=== PATIENT | male | born 1965 | race Caucasian/White ===

== ENCOUNTER 2016-11-02 12:41 | Inpatient (IN) ==
[2016-11-02] MEDS ORDERED: ASPIRIN 81 MG CHEWABLE TABLET PO ONE (12:50)
[2016-11-02] MEDS: NITROGLYCERIN 0.4 MG SUBLINGUAL TABLET SL PRN ×2 (12:53→13:05)
[2016-11-02] MEDS ORDERED: FUROSEMIDE 40 MG/4 ML INJECTION IVP ONE ×2 (12:56→16:39)
[2016-11-02] MEDS: SALINE FLUSH 10ml SYRINGE IVF PRN (13:06)
[2016-11-02] MEDS ORDERED: ALBUTEROL/IPRATROPIUM 2.5mg-0.5mg/3ml NEB AEROSOL ONE (13:11)
--- NOTE | 2016-11-02 13:11 | Emergency Department Report ---
Chest Pain HPI - General Chief Complaint: Chest Pain <Carlos Jones Q - 11/09/16 17:21> Stated Complaint: soa,chest pain <Carlos Jones Q - 11/09/16 17:21> Time Seen by Provider: 11/02/16 12:50 <Carlos Jones Q - 11/09/16 17:21> Source: patient <Cayla Ruffin - 11/02/16 13:11> Mode of arrival: ambulatory <Cayla Ruffin - 11/02/16 13:11> - History of Present Illness HPI narrative: Patient presents to the emergency room with complaints of chest pain and severe shortness of air. Patient reports was diagnosed with congestive heart failure 15 days ago while out of state but left AMA after staying approx 24 hours in order to get back to [place]. Patient states that he was diuresed while in the hospital however he left AMA and was not prescribed any diuretics. Patient states has been feeling like this since that time. Patient presents and is dyspneic speaking in 3 word sentences. Room air sats are 86-88%. Patient placed on 3 L of oxygen and saturations above 93%. Patient reports significant improvement after application of oxygen. Patient has scattered crackles and wheezes throughout all lung hoover. Patient states has no official diagnosis of COPD however is a heavy smoker and does have difficulty breathing prior to the diagnosis of congestive heart failure. Breathing treatment was ordered due to smoking hx and probable COPD component. Complains of chest pain to the left side of his chest that radiates to his shoulder, reports 8/10. Patient reports no regular medical care with the exception of his hospitalization 2 weeks ago[address] Denies street drug use. Reports is a daily smoker at 3 packs a day and drinks alcohol daily. When asked how much, he only states "a lot" and will not elaborate. Today he states he has had 4 beers. Patient is hypertensive upon arrival at 203/123 and HR is 115. Patient has pronounced edema throughout and 3+ pitting pedal edema. Patient is not from [place] however his sister lives here and he feels this is home base. <Cayla Ruffin - 11/02/16 14:20> MD complaint: chest pain, other (shortness of air) <Cayla Ruffin - 13:33> Occurred At: home <Cayla Ruffin 11/02/16 13:33> Onset (ago): day(s) <Cayla Ruffin 11/02/16 13:33> Duration: constant <Cayla Ruffin 11/02/16 13:33> Onset: during rest <Cayla Ruffin 11/02/16 13:33> Pain location: substernal, other (left shoulder) <Cayla Ruffin 11/02/16 13:33> Severity: severe <Cayla Ruffin 11/02/16 13:33> - Related Data Home Medications Medication Instructions Recorded Confirmed Acetaminophen [Acetaminophen Extra 1,000 mg PO Q6H PRN 11/02/16 11/02/16 Strength] <RobertCarlos Q - 11/09/16 17:21> Allergies Allergy/AdvReac Type Severity Reaction Status Date / Time No Known Allergies Allergy Verified 11/02/16 12:59 <Carlos Jones Q - 11/09/16 17:21> Review of Systems All systems: reviewed and negative except as stated <Cayla Ruffin 13:37> Constitutional: Reports: as per HPI, weakness. Denies: fever, chills <Dawood Ruffine Lety 11/02/16 13:37> Eyes: Denies: eye pain, eye discharge <LalyCayla Davidson 11/02/16 13:37> ENT: Denies: ear pain, throat pain <RuffinCayla Lety 11/02/16 13:37> Cardiovascular: Reports: as per HPI, chest pain, dyspnea on exertion, orthopnea , edema, paroxysmal nocturnal dyspnea <Cayla Ruffin 11/02/16 13:37> Respiratory: Reports: as per HPI, cough, dyspnea, wheezes. Denies: hemoptysis <RuffinCayla Lety 11/02/16 13:37> Gastrointestinal: Reports: as per HPI. Denies: abdominal pain, nausea, vomiting , diarrhea <RuffinCayla Lety 11/02/16 13:37> Genitourinary: Reports: as per HPI. Denies: urgency, dysuria, frequency < LalyCayla E 11/02/16 13:37> Musculoskeletal: Reports: as per HPI, back pain. Denies: joint swelling < Cayla Ruffin 11/02/16 13:37> Integumentary: Reports: as per HPI <Cayla Ruffin 11/02/16 13:37> Neurological: Reports: as per HPI. Denies: headache, weakness, numbness, paresthesias <Cayla Ruffin 11/02/16 13:37> Psychiatric: Reports: anxiety <LalyCayla E 11/02/16 13:37> Endocrine: Reports: as per HPI, fatigue <Cayla Ruffin 11/02/16 13:37> Hematological/Lymphatic: Reports: as per HPI. Denies: easy bleeding <Cayla Ruffin 11/02/16 13:37> Allergic/Immunologic: Reports: as per HPI <Cayla Ruffin 11/02/16 13:37> [facility] Patient Stated Medical History Cerebrovascular Accident No Angina Yes Cardiac Arrhythmia No Congestive Heart Failure Yes Hypertension Yes Myocardial Infarction No Peripheral Vascular Disease No Diabetes Mellitus Type 1 No Diabetes Mellitus Type 2 No Gastroesophageal Reflux Yes Disease Recreational Drug Use No <Carlos Jones Q 11/09/16 17:21> Patient Stated Medical History Cerebrovascular Accident No Angina Yes Cardiac Arrhythmia No Congestive Heart Failure Yes Hypertension Yes Myocardial Infarction No Peripheral Vascular Disease No Diabetes Mellitus Type 1 No Diabetes Mellitus Type 2 No Gastroesophageal Reflux Yes Disease Recreational Drug Use No <Cayla Ruffin 11/02/16 13:16> Physical Exam - Limitations Limitations: no limitations <Cayla Ruffin 11/02/16 13:37> - General General appearance: alert, in distress (respiratory ) <Cayla Ruffin 13:37> - Normal Exams: Head:: Normocephalic without trauma <Cayla Ruffin 11/02/16 13:37> Eyes:: Pupils are PERRLA w/ EOMI, No scleral icterus, irritation, or foreign bodies noted <Cayla Ruffin 11/02/16 13:37> Neck:: Full range of motion, without adenopathy, bruits or thyromegaly < Cayla Ruffin 11/02/16 13:37> - Chest Chest inspection: Present: normal inspection <Cayla Ruffin 11/02/16 14: 13> - Respiratory Respiratory exam: Present: respiratory distress, wheezes, accessory muscle use, crackles <Cayla Ruffin 11/02/16 14:13> - Cardiovascular Cardiovascular exam: Present: regular rate, normal rhythm, tachycardia < Cayla Ruffin 11/02/16 14:13> - Abdominal Exam Abdominal exam: Present: distention, normal bowel sounds, other (abdomen is large, appears distended but is not tender. ) <Cayla Ruffin 11/02/16 14 :13> - Back Exam Back exam: Present: normal inspection <Cayla Ruffin 11/02/16 14:13> - Skin Skin exam: Present: warm, dry, intact, normal color <Cayla Ruffin 14:13> - Neurological Exam Neurological exam: Present: alert, oriented X3, CN II-XII intact, normal gait <Cayla Ruffin 11/02/16 14:13> - Psychiatric Psychiatric exam: Present: normal affect, normal mood <Cayla Ruffin 14:13> Course - Reevaluation(s) Reevaluation #1 Cardiovascular exam ED: regular rate, tachycardia <Cayla Ruffin 13:33> Time Reevaluation: 13:31 <Cayla Ruffin 11/02/16 13:33> Comments: Patient has had 2 nitroglycerin sublingual and states chest pain has improved. He continues significant relief after application of oxygen by nasal cannula. Topical nitroglycerin applied troponin is < .029 and d dimer is normal. Pending BNP and CXR. <Cayla Ruffin 11/02/16 13:33> Reevaluation #2 Cardiovascular exam ED: regular rate, tachycardia <Cayla Ruffin 14:20> Time Reevaluation: 14:17 <Cayla Ruffin 11/02/16 14:20> Comments: patient is CP free now. Has requested nicotine patch and this has been ordered. Patient understands the need for admission and is cooperative and willing to be admitted at this time. <Cayla Ruffin - 11/02/16 14:20> - Consultations Consultation #1: hospitalist <Cayla Ruffin - 11/02/16 13:51> Time: 13:49 (will admit to hospitalist service ) <Cayla Ruffin - 11/02/16 14:06> Vital Signs Temperature 98.6 F 11/02/16 12:42 Pulse Rate 113 H 11/02/16 12:42 Respiratory Rate 39 H 11/02/16 12:42 Blood Pressure 202/123 H 11/02/16 12:42 Pulse Oximetry 91 11/02/16 12:42 Temperature 97.3 F 11/09/16 15:27 Pulse Rate 84 11/09/16 16:00 Respiratory Rate 18 11/09/16 16:12 Blood Pressure 153/93 H 11/09/16 15:27 Pulse Oximetry 93 11/09/16 15:27 <Carlos Jones - 11/09/16 17:21> Chest Pain - MDM Narrative Medical decision making narrative: CHF dx with BNP 2300 and cardiomegaly on the CXR. Hypoxic with room air sats at 88% upon arrival but 94% with 02 at 3l/NC. No evidence of acute ischemia on EKG and or trop. Sx likely due to CHF/cardiomegaly. <Cayla Ruffin - 11/02/16 14:13> - Lab Data Result diagrams: 11/08/16 04:28 11/09/16 04:43 <Carlos Jones - 11/09/16 17:21> Lab Results 11/02/16 11/02/16 11/02/16 Range/Units 12:53 12:53 12:53 WBC 9.1 (4.5-11.0) T/MM3 RBC 4.66 (4.50-5.90) M/MM3 Hgb 15.6 (13.5-17.5) GM/DL Hct 45.1 (41-53) % MCV 96.8 (80-100) UM3 MCH 33.5 (26-34) UUG MCHC 34.6 (31-37) GM/DL RDW Std Deviation 42.4 (36.9-50.2) FL Plt Count 157 (130-400) T/MM3 MPV 9.8 (9.4-12.4) UM3 Immature Gran % (Auto) 0.2 (0.0-0.5) % Neut % (Auto) 76.7 H (33-66) % Lymph % (Auto) 12.8 L (23-45) % [place] % (Auto) 8.6 (0-9.0) % Eos % (Auto) 1.0 (0-4) % Baso % (Auto) 0.7 (0-2) % Neut # 7.0 (1.8-7.7) T/MM3 Lymph # 1.2 (1-4.8) T/MM3 [place] # 0.8 (0-0.8) T/MM3 Eos # 0.1 (0-0.5) T/MM3 Baso # 0.1 (0-0.2) T/MM3 Abs Immat Gran (auto) 0.02 (0.00-0.03) T/MM3 D-Dimer < 150 (0-230) NG/ML Turbidity < 20 (0-20) Sodium 137 (134-144) MEQ/L Potassium 3.9 (3.6-5) MEQ/L Chloride 99 (98-107) MEQ/L Carbon Dioxide 25 (22-30) MEQ/L Anion Gap 13 (5-15) MEQ/L BUN 8.0 L (9-20) MG/DL Creatinine 0.7 L (0.8-1.5) MG/DL GFR Calculation 118 BUN/Creatinine Ratio 11 (6-26) RATIO Glucose 107 (75-110) MG/DL Calculated Osmolality 262 (261-280) MOSM/KG Calcium 9.5 (8.4-10.2) MG/DL Total Bilirubin 1.40 H (0.20-1.30) MG/DL Icterus Index < 2 (0-7) AST 28 (17-59) U/L ALT 41 (21-72) U/L Alkaline Phosphatase 121 (38-126) U/L Troponin I 0.029 (0-0.12) ng/ml B-Natriuretic Peptide 2390 H (0-175) pg/mL Total Protein 7.3 (6.3-8.2) G/DL Albumin 4.4 (3.5-5.0) G/DL Globulin 2.9 (2.4-3.6) G/DL Albumin/Globulin Ratio 1.5 (1.1-2.2) RATIO Specimen Hemolysis < 15 (0-25) Alcohol, Quantitative <10 (<10) MG/DL <Jovan Jonesn Q - 11/09/16 17:21> Lab Results 11/02/16 11/02/16 11/02/16 Range/Units 12:53 12:53 12:53 WBC 9.1 (4.5-11.0) T/MM3 RBC 4.66 (4.50-5.90) M/MM3 Hgb 15.6 (13.5-17.5) GM/DL Hct 45.1 (41-53) % MCV 96.8 (80-100) UM3 MCH 33.5 (26-34) UUG MCHC 34.6 (31-37) GM/DL RDW Std Deviation 42.4 (36.9-50.2) FL Plt Count 157 (130-400) T/MM3 MPV 9.8 (9.4-12.4) UM3 Immature Gran % (Auto) 0.2 (0.0-0.5) % Neut % (Auto) 76.7 H (33-66) % Lymph % (Auto) 12.8 L (23-45) % [place] % (Auto) 8.6 (0-9.0) % Eos % (Auto) 1.0 (0-4) % Baso % (Auto) 0.7 (0-2) % Neut # 7.0 (1.8-7.7) T/MM3 Lymph # 1.2 (1-4.8) T/MM3 [place] # 0.8 (0-0.8) T/MM3 Eos # 0.1 (0-0.5) T/MM3 Baso # 0.1 (0-0.2) T/MM3 Abs Immat Gran (auto) 0.02 (0.00-0.03) T/MM3 D-Dimer < 150 (0-230) NG/ML Turbidity < 20 (0-20) Sodium 137 (134-144) MEQ/L Potassium 3.9 (3.6-5) MEQ/L Chloride 99 (98-107) MEQ/L Carbon Dioxide 25 (22-30) MEQ/L Anion Gap 13 (5-15) MEQ/L BUN 8.0 L (9-20) MG/DL Creatinine 0.7 L (0.8-1.5) MG/DL GFR Calculation 118 BUN/Creatinine Ratio 11 (6-26) RATIO Glucose 107 (75-110) MG/DL Calculated Osmolality 262 (261-280) MOSM/KG Calcium 9.5 (8.4-10.2) MG/DL Total Bilirubin 1.40 H (0.20-1.30) MG/DL Icterus Index < 2 (0-7) AST 28 (17-59) U/L ALT 41 (21-72) U/L Alkaline Phosphatase 121 (38-126) U/L Troponin I 0.029 (0-0.12) ng/ml B-Natriuretic Peptide 2390 H (0-175) pg/mL Total Protein 7.3 (6.3-8.2) G/DL Albumin 4.4 (3.5-5.0) G/DL Globulin 2.9 (2.4-3.6) G/DL Albumin/Globulin Ratio 1.5 (1.1-2.2) RATIO Specimen Hemolysis < 15 (0-25) Alcohol, Quantitative <10 (<10) MG/DL <Cayla Ruffin - 11/02/16 13:16> - EKG Data EKG #1 EKG attestation: Yes: I reviewed and interpreted this EKG. <Carlos Jones Q 11/09/16 17:21> EKG shows normal: sinus rhythm <Carlos Jones Q 11/09/16 17:21> Rate: tachycardia <Carlos Jones Q 11/09/16 17:21> Rhythm: NSR <RobertCarlos Q 11/09/16 17:21> [place]/QRS: RBBB <Carlos Jones Q 11/09/16 17:21> Interpretation: no acute changes <Carlos Jones Q 11/09/16 17:21> Disposition Clinical Impression: Chest pain, Hypertensive urgency Congestive heart failure Qualifiers: Congestive heart failure type: unspecified congestive heart failure type Congestive heart failure chronicity: acute on chronic Qualified Code(s): I50.9 - Heart failure, unspecified <Carlos Jones Q - 11/09/16 17:21> Disposition: 02 To [facility] [place] Acute Care <Carlos Jones Q - 11/09/16 17:21> Condition: Stable <Carlos Jones Q - 11/09/16 17:21> Prescriptions: No Action Acetaminophen [Acetaminophen Extra Strength] 1,000 mg PO Q6H PRN PRN Reason: Pain <Carlos Jones Q - 11/09/16 17:21> - Seen By: midlevel <Cayla Ruffin - 11/02/16 14:15> Addendum entered and electronically signed by Cayla Ruffin APRN 11/02/16 14:28: EkG ST rate 115, RBBB
[2016-11-02] MEDS ORDERED: NITROGLYCERIN 2% OINTMENT 1gm PACKET TP ONE (13:27)
[2016-11-02] MEDS ORDERED: NICOTINE 21 MG PATCH TD ONE (13:40)
--- NOTE | 2016-11-02 13:53 | XRay Report ---
Indication: soa PROCEDURE: XR chest 1V: Encounter: Initial Comparison: None Findings: Lungs are grossly clear. No pleural effusion or pneumothorax. Cardiac silhouette is moderately to severely enlarged. Mediastinal contours are normal. Pulmonary vascularity appears normal. Impression: Significant enlargement of the cardiac silhouette could be due to cardiomegaly or pericardial effusion. No acute pneumonia or overt congestive failure. .
[2016-11-02] MEDS ORDERED: LISINOPRIL 20 MG TABLET PO ONE (14:05)
--- NOTE | 2016-11-02 14:48 | History & Physical Report ---
<Miguelina Banerjee - Last Filed: 11/02/16 16:37> History of Present Illness Date: 11/02/16 Chief complaint: chest pain, SOA HPI: Patient is a 51-year-old white male who has no PCP. He presented to the emergency room with complaints of severe shortness of air and chest pain (10/29) . Patient reports that he was diagnosed with congestive heart failure 15 days ago while hospitalized in [place], but he left the hospital AMA after staying approximately 24 hours to get back to [place] where his sister lives. Patient states he's had these symptoms since that hospitalization. When he presented to the ED he was quite dyspneic and speaking in 3 word sentences. His room air sats were 86-88%. After he was placed on 3 L of oxygen, his saturations improved to greater than 93% and he reported significant improvement in his shortness of breath. He was given 2 sublingual nitroglycerin and topical nitrogen was applied. Following the oxygen and nitroglycerin, his chest pain resolved. He also received aspirin, a dose of Lasix 40 IV, and lisinopril 20 mg by mouth. He had a DuoNeb treatment in the emergency department for his wheezes/ crackles. He is not aware of a COPD diagnosis, however he does not have routine healthcare. He is a 3 pack per day smoker. Nicotine patch was applied in the emergency room. His initial troponin and d-dimer were negative. His BNP was 2390. CBC and CMP were essentially negative. Alcohol level was less than 10, although patient states he has had 4 drinks today. Chest x-ray showed significant cardiomegaly. EKG showed sinus tach with no acute ST changes. Following initial workup in the ED, patient was admitted to the hospitalist service (Dr. Parker attending) for further workup, treatment and observation. Patient was brought to the floor on 3 L of oxygen per nasal cannula in stable condition. He was seen in his hospital room. His sister is with him. He has no current complaints. States "I just need to get back to work." He is agreeable to seeing Dr. Marie in consultation. Review of Systems Comprehensive ROS: completed and no additional positive findings except those as stated - EENMT EENMT Comments: has a "lazy eye" on the left. Chronic. - Cardiovascular Cardiovascular: Present: edema - Respiratory Respiratory: Present: cough (chronic), wheezing - Gastrointestinal Gastrointestinal: Present: hematochezia (1.5 wks ago had "a decent amount" of bright red blood in toilet and on TP. Not constipated. Wasn't straining with BM. Has blood "at times.") Gastrointestinal Comments: BMs are normal. Last one was yesterday. - Integumentary/Breasts Integumentary: Present: rash (on b/l lower legs where his "boots rub") - Neurological Neurological: Present: headache(s) (this am. Resolved with TYlenol) PFSH Congestive heart failure Hypertension Hepatitis C Chronic tobacco use Chronic alcohol use Presumed COPD GERD diverticulosis Hospitalized at [facility] many years ago due to diverticulitis. Hospitalized in [place], [place] 2 weeks ago for chest pain/CHF - left AMA Surgical History: None Family History: Father at age 72 of an MT. Also had COPD. Smoker. Mother at age 56 of an MT. She had schizophrenia. She also had COPD and was a smoker. Sister at age 42 of hepatitis C/liver disease. Alcoholic. - Social History Smoking status: Current every day smoker (has tried to quit using Chantix. Had to DC due to vivid dreams.) packs per day: 3 (has smoked since age 12) Substance use type: does not use, former substance user (when much younger) Alcohol intake: current Alcohol intake frequency: other (states his intake is variable. States on days he works, he immediately starts drinking after work and will drink 15-20 beers and 15 shots of liquor. States on days he doesn't work he will start drinking as soon as he wakes up and drink all day long. By the end of his workday he will start to have withdrawal symptoms. States he has drank since he was a teenager.) Last drink: hours (ago) (at 12 PM today) Housing: other (has a home in [place], but his mailing address is his sister's address in [place]) Household members: none Current occupational status: employed Current occupation: works for the [employer] Social history: Never . Has one son who works on the [employer] and lives in [place]. Patient has no PCP Medications Home Medications Medication Instructions Recorded Confirmed Type Acetaminophen [Acetaminophen Extra 1,000 mg PO Q6H PRN 11/02/16 11/02/16 History Strength] Allergies Allergy/AdvReac Type Severity Reaction Status Date / Time No Known Allergies Allergy Verified 11/02/16 12:59 Exam Vital Signs: Temperature 98.6 F 11/02/16 12:42 Pulse Rate 113 H 11/02/16 12:42 Respiratory Rate 41 H 11/02/16 13:19 Blood Pressure 202/123 H 11/02/16 12:42 Pulse Oximetry 97 11/02/16 13:19 Height: 1.75 m Weight: 110.5 kg - Constitutional Present: no acute distress, well nourished, well developed, morbidly obese - Routine HEENT Exam Head: Present: normocephalic, atraumatic Eye: Present: PERRL. Absent: EOMI (left eye does not track fully) ENT: Present: mucous membranes moist, oropharynx clear - Routine Neck Exam Present: supple, full ROM. Absent: carotid bruit - Routine Respiratory Exam Present: wheezes (diffuse). Absent: respiratory distress Comments: Coarse sounds especially on expiration - Routine Cardiovascular Exam Present: RRR, S1, S2. Absent: murmur - Routine Abdominal Exam Present: soft, normoactive bowel sounds, tenderness (mild right upper quadrant) , non distended. Absent: rebound Comments: Obese - Routine Extremities Exam Present: edema (3+ pitting), normal capillary refill - Routine Back/Spine/Pelvis Exam Back/Spine: Present: full ROM - Routine Skin Exam Present: dry, warm, rash (excoriation to mid lower leg anterior shins) - Routine Neurological Exam Present: alert, oriented X3, CN II-XII intact - Routine Psychiatric Exam Present: normal affect, normal thought process, cooperative Results - Labs CBC & Chem 7: 11/02/16 12:53 11/02/16 12:53 Labs: Laboratory Tests 11/02/16 12:53 Troponin I 0.029 B-Natriuretic Peptide 2390 H Alcohol, Quantitative <10 EKG - sinus tach, Left atrial enlargement and RBBB. No ST segment changes. - Imaging and Cardiology Chest x-ray Additional comments: Chest d-ctm-[id number] in ED Impression: Significant enlargement of the cardiac silhouette could be due to cardiomegaly or pericardial effusion. No acute pneumonia or overt congestive failure. Assessment and Plan (1) Chest pain Current visit: Yes Status: Acute (2) Hypertensive urgency Current visit: Yes Status: Acute (3) Congestive heart failure Current visit: Yes Status: Acute DVT Prophylaxis: SCD's GI Prophylaxis: Protonix Resuscitation Status: Full Code Assessment and Plan: Assessment Chest pain/shortness of air-likely related to cardiomyopathy and acute heart failure CHF Hepatitis C Hypertension GERD Presumed COPD Chronic tobacco use Chronic alcohol use diverticulosis Hematochezia Plan Admit to inpatient status under the care of the hospitalist team, Dr. Parker attending, for further workup and monitoring. Patient will continue on telemetry. Oxygen to keep sats greater than 90%. Consult cardiology, Dr. Deng, for his expert opinion regarding his cardiac status. Serial troponins and EKGs. Schedule echo. Lipids in a.m. SCDs and Lovenox for VTE prophylaxis Protonix for GI prophylaxis Serax 30 4 times a day and prn Ativan for alcohol withdrawal. Seizure precautions Continue nicotine patch for nicotine withdrawal DuoNeb treatments scheduled and as needed for wheezing Lasix for diuresis. Follow electrolytes. Monitor blood pressure. start lisinopril. Start carvedilol for his CHF. Initiate daily aspirin. Thiamine, folic acid, MVI for alcoholism. Check magnesium, TSH, and phosphorous in am. Needs further workup in regard to the hematochezia. This can be done on an outpatient basis. Patient is a full code Upon discharge, patient will need to establish with a primary care provider for ongoing care. Hospital Course Summary Disclaimer: The visit summary below is not to be considered part of the above Progress Note. <Prachi Parker - Last Filed: 11/02/16 19:27> History of Present Illness Date: 11/02/16 [facility] Patient Stated Medical History Angina Yes Congestive Heart Failure Yes Hypertension Yes Other Cardiology Yes: enlarged heart Gastroesophageal Reflux Yes Disease Exam Vital Signs: Temperature 96.0 F L 11/02/16 14:36 Pulse Rate 107 H 11/02/16 14:36 Respiratory Rate 28 H 11/02/16 16:51 Blood Pressure 178/111 H 11/02/16 14:36 Pulse Oximetry 93 11/02/16 14:36 Oxygen Delivery Method Nasal Cannula Oxygen Flow Rate 2 Height: 1.75 m Weight: 110.5 kg Results - Labs CBC & Chem 7: 11/02/16 12:53 11/02/16 12:53 Assessment and Plan (1) Chest pain Current visit: Yes Status: Acute (2) Hypertensive urgency Current visit: Yes Status: Acute (3) Congestive heart failure Current visit: Yes Status: Acute Assessment and Plan: I have independently evaluated and examined this patient. I reviewed the chart, the patient's history, and the EGYPTOLOGIST/PA's documented findings as above. We discussed and formulated the assessment and plan as above with additions as below: Mr. Wilkins describes dyspnea for several years which is escalated significantly within the past 6-8 months but especially over the past month during which time exertion has been limited to about 25 feet and he's developed progressive orthopnea requiring that he sleep on "a lot of pillows". Recently he 's developed PND. As noted he was hospitalized for about 36 hours 2 weeks ago and left the hospital because he felt nothing was being done. Since that time he feels symptoms have continued to progress especially in the past 1-2 days such that he is now dyspneic speaking. He is aware of elevated blood pressures from prior assessment but is on no medications. He reports stabbing/quick chest pains but has not had any tightness or heavy sensation in his chest typical of classic angina nor have the fleeting chest pains he describes an associated with other cardiac symptoms. The fleeting chest pains he reports occur randomly. He reports prior wrist fracture requiring repair and a varicocele/hernia repair which she did not recall earlier when speaking with Miguelina. On exam the patient is moderately dyspneic speaking. He is seated with head of the bed elevated approximately 60. There is frequent nonproductive cough and inspiratory effort for exam triggers cough. Faint wheezes are present in the lung hoover bilaterally and crackles at the bases bilaterally. Cardiac exam is regular and I don't appreciate a murmur or gallop. +2-3 bilateral lower extremity edema. EKG reviewed by myself demonstrating left axis deviation, RBBB, but no acute changes. Chest x-ray also reviewed by myself demonstrating marked cardiomegaly and mild congestive changes. Bilirubin slightly elevated; BNP 2390. 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 Treatment has been initiated acutely with Lasix, carvedilol, lisinopril, and aspirin. Echocardiogram ordered and Dr. Marie consulted. Serial troponins being obtained. Patient may well have underlying coronary disease given long tobacco history. Lipids to be obtained. Patient is at high risk for alcohol withdrawal and indicates he becomes symptomatic by the end of the workday. Serax initiated at 4 times a day dosing to minimize withdrawal symptoms and lorazepam available as needed. Hospital Course Summary Disclaimer: The visit summary below is not to be considered part of the above Progress Note.
[2016-11-02 16:12] VITALS: BMI 35.9
[2016-11-02] MEDS ORDERED: LORazepam 1 MG TABLET PO PRN (16:46)
[2016-11-02] MEDS ORDERED: ACETAMINOPHEN 500 MG TABLET PO PRN (17:09)
[2016-11-02] MEDS: CARVEDILOL 6.25 MG TABLET PO SCH ×2 (17:55→17:57)
[2016-11-02] MEDS: OXAZEPAM 15 MG CAPSULE PO SCH ×2 (17:55→20:21)
[2016-11-02] MEDS: PANTOPRAZOLE 20 MG TABLET PO SCH (17:56)
[2016-11-02] MEDS: NICOTINE 21 MG PATCH TD SCH (18:34)
[2016-11-02] MEDS ORDERED: ALBUTEROL/IPRATROPIUM 2.5mg-0.5mg/3ml NEB AEROSOL SCH (19:00)
[2016-11-02] MEDS: ALBUTEROL/IPRATROPIUM 2.5mg-0.5mg/3ml NEB AEROSOL SCH ×2 (19:13→19:14)
[2016-11-03] MEDS: LORazepam 1 MG TABLET PO PRN ×2 (00:04→22:40)
--- NOTE | 2016-11-03 01:12 | Cardiology Consult Note ---
History of Present Illness Consult date: 11/03/16 <Jes Paz 11/03/16 01:19> Requesting physician: Prachi Parker <Jes Paz 11/03/16 01:19> Consult reason: hypertension, congestive heart failure <Jes Paz 01:19> Chief complaint: Chest pain and SOB <Jes Paz 11/03/16 01:19> History of present illness: This is a 51 year old patient with a history of CHF diagnosed 15 days prior in a hospital in [place] were he left AMA in order to return to [place] where his sister lives. He has no PCP and takes no home meds. He smokes and drinks alcohol. He presented to [facility] ER with severe SOB and chest pain. His chest pain was in the left upper chest radiating into his shoulder nothing relieved or worsened the chest pain. He has been SOB, WHITE, and edematous since leaving the hospital 2 weeks ago. In the ER: O2 sats 86-88% on room air which improved with O2 at 3LNC. BP 203/123, HR 110's. He received ASA and Ntg sl x2 for relief of his chest pain and SOB improved as well. His CBC and BMP ok. BNP is 2390, CXR: cardiomegaly no evident congestion per report. ECG: ST, HR 102, LAE, LAD, RBBB. He was given Lasix for large diuresis of 2100 ml of U/O. Dr. Marie was consulted for Chest pain and CHF symptoms. Currently he is laying on his side sleeping and breathing heavily. He has crackles and wheezes throughout. He has +2-3 pitting edema in his legs. <Jes Paz 11/03/16 02:38> Review of Systems - Constitutional Constitutional: Absent: chills, fever(s) <Jes Paz 11/03/16 01:51> - EENMT Eyes: Present: other (lazy eye). Absent: blurry vision <Jes Paz 02:13> Ears: Absent: tinnitus <Jes Paz 11/03/16 02:13> Balance: Absent: vertigo <Jes Paz 11/03/16 02:13> Mouth/Throat: Absent: sore throat <Jes Paz 11/03/16 02:13> - Cardiovascular Cardiovascular: Present: chest pain, dyspnea on exertion, orthopnea, edema. Absent: palpitations, syncope <Jes Paz 11/03/16 02:13> Rhythm: Present: regular rhythm <Jes Paz 11/03/16 02:13> Vascular: Present: pedal edema (+2 -3 ) <Jes Paz 11/03/16 02:13> - Respiratory Respiratory: Present: cough, dyspnea, dyspnea on exertion, wheezing <Jes Paz 11/03/16 02:13> - Gastrointestinal Gastrointestinal: Present: hematochezia. Absent: abdominal pain, constipation ( 1.5 weeks ago he had bloody stool. ), diarrhea <Jes Paz 11/03/16 02 :13> - Musculoskeletal Musculoskeletal: Absent: muscle cramps, muscle weakness <Jes Paz 02:13> - Integumentary/Breasts Integumentary: Present: rash (lower legs were his boots rub. ) <Jes Paz 11/03/16 02:13> - Neurological Neurological: Absent: confusion, dizziness <Jes Paz 11/03/16 02:13> - Psychiatric Psychiatric: Absent: anxiety, depression <Jes Paz 11/03/16 02:13> - Endocrine Endocrine: Absent: palpitations <Jes Paz 11/03/16 02:13> [facility] Patient Stated Medical History Angina Yes Congestive Heart Failure Yes Hypertension Yes Other Cardiology Yes: enlarged heart Gastroesophageal Reflux Yes Disease <Manuel Marie - 11/04/16 08:06> Patient Stated Medical History Congestive Heart Failure HTN GERD Hepatitis C Chronic tobacco use Chronic alcohol use Presumed COPD diverticulosis Hospitalized at [place] many years ago due to diverticulitis. Hospitalized in [place], [place] 2 weeks ago for chest pain/CHF - left AMA <Jes Paz 11/03/16 02:13> Surgical History: None <Jes Paz 11/03/16 01:19> Family History: Father at age 72 of an NH. Also had COPD. Smoker. Mother at age 56 of an NH. She had schizophrenia. She also had COPD and was a smoker. Sister at age 42 of hepatitis C/liver disease. Alcoholic. <Jes Paz 11/03/16 02:13> - Social History Smoking status: Current every day smoker (has tried to quit using Chantix. Had to DC due to vivid dreams.) <Jes Paz 11/03/16 02:13> packs per day: 3 <Jes Paz 11/03/16 02:13> Substance use type: does not use <Jes Paz 11/03/16 02:13> Alcohol intake: current <Jes Paz 11/03/16 02:13> Alcohol intake frequency: other (other (states his intake is variable. States on days he works, he immediately starts drinking after work and will drink 15- 20 beers and 15 shots of liquor. States on days he doesn't work he will start drinking as soon as he wakes up and drink all day long. By the end of his workday he will start to have withdrawal symptoms. 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 <Jes Paz 11/03/16 02:13 > Social history: Never . Has one son who works on the [employer] and lives in [place]. Patient has no PCP <Jes Paz 11/03/16 02:13> Medications Home Medications Medication Instructions Recorded Confirmed Type Acetaminophen [Acetaminophen Extra 1,000 mg PO Q6H PRN 11/02/16 11/02/16 History Strength] <Manuel Marie - 11/04/16 08:06> Allergies Allergy/AdvReac Type Severity Reaction Status Date / Time No Known Allergies Allergy Verified 11/02/16 12:59 <Manuel Marie - 11/04/16 08:06> Exam Vital signs: Temperature 97.6 F 11/04/16 07:00 Pulse Rate 95 11/03/16 23:01 Respiratory Rate 30 H 11/04/16 07:05 Blood Pressure 167/98 H 11/03/16 23:01 Pulse Oximetry 100 11/04/16 07:05 Oxygen Delivery Method Nasal Cannula Oxygen Flow Rate 6 Fraction of Inspired Oxygen 45 <Manuel Marie - 11/04/16 08:06> Temperature 97.3 F 11/03/16 00:00 Pulse Rate 102 H 11/03/16 00:00 Respiratory Rate 28 H 11/03/16 00:05 Blood Pressure 166/99 H 11/03/16 00:00 Pulse Oximetry 96 11/03/16 00:05 Oxygen Delivery Method Nasal Cannula Oxygen Flow Rate 6 <JacksonJes T 11/03/16 01:19> - Constitutional no acute distress, well nourished, well developed, obese, cooperative < JacksonJes T 11/03/16 02:13> - Routine HEENT Exam Head: Present: normocephalic, atraumatic <JacksonJes T 11/03/16 02:13> Eye: Present: conjunctivae pink <Jes Paz 11/03/16 02:13> ENT: Present: mucous membranes moist <Jes Paz 11/03/16 02:13> Nose: moist mucous membranes <Jes Paz 11/03/16 02:13> - Routine Neck Exam Present: JVD, trachea midline <Jes Paz 11/03/16 02:13> - Routine Respiratory Exam Present: wheezes, crackles. Absent: respiratory distress <Jes Paz 11/03/16 02:13> - Routine Cardiovascular Exam Present: RRR, no murmur <Jes Paz 11/03/16 02:13> - Routine Abdominal Exam Present: soft, non tender <Jes Paz - 11/03/16 02:13> - Routine Extremities Exam Present: edema. Absent: pulses intact (feet warm. ) <Jes Paz 11/03 02:13> - Routine Skin Exam Present: intact, dry, warm <Jes Paz 11/03/16 02:13> - Routine Neurological Exam Present: alert, oriented X3, moving all extremities, hearing grossly intact, normal speech <Jes Paz 11/03/16 02:13> - Routine Psychiatric Exam Present: normal affect, normal thought process, cooperative <Jes Paz 11/03/16 02:13> Results 11/04/16 05:11 11/04/16 05:11 <Manuel Marie - 11/04/16 08:06> Cardiac Enzymes 11/04/16 Range/Units 05:11 AST 27 (17-59) U/L CBC 11/04/16 Range/Units 05:11 WBC 5.7 (4.5-11.0) T/MM3 RBC 4.51 (4.50-5.90) M/MM3 Hgb 14.9 (13.5-17.5) GM/DL Hct 45.4 (41-53) % Plt Count 166 (130-400) T/MM3 Neut # 2.8 (1.8-7.7) T/MM3 Lymph # 1.4 (1-4.8) T/MM3 [place] # 1.1 H (0-0.8) T/MM3 Eos # 0.4 (0-0.5) T/MM3 Baso # 0.1 (0-0.2) T/MM3 Comprehensive Metabolic Panel 11/04/16 Range/Units 05:11 Sodium 140 (134-144) MEQ/L Potassium 3.9 (3.6-5) MEQ/L Chloride 93 L (98-107) MEQ/L Carbon Dioxide 37 H (22-30) MEQ/L BUN 21.0 H (9-20) MG/DL Creatinine 1.0 (0.8-1.5) MG/DL Glucose 92 (75-110) MG/DL Calcium 9.2 (8.4-10.2) MG/DL AST 27 (17-59) U/L ALT 35 (21-72) U/L Alkaline Phosphatase 94 (38-126) U/L Total Protein 6.8 (6.3-8.2) G/DL Albumin 4.0 (3.5-5.0) G/DL Intake and Output 11/03/16 11/04/16 11/04/16 22:59 06:59 14:59 Intake Total 540 / 540 Output Total 19223 Balance -1383 / -1383 Intake: Oral 540 / 540 Output: Urine Amount (Catheter) 1922 <Manuel Marie - 11/04/16 08:06> Cardiac Enzymes 11/02/16 11/02/16 Range/Units 16:20 22:13 Troponin I 0.034 0.033 (0-0.12) ng/ml Intake and Output 11/02/16 11/02/16 11/03/16 14:59 22:59 06:59 Output Total 2099 / 2100 Balance -2099 / -2100 Output: Urine 2100 / 2100 Other: # Voids 1 Weight 243 lb 9.773 oz Patient Weight 11/03/16 06:59 Weight 243 lb 9.773 oz Laboratory Results - last 48 hr 11/02/16 11/02/16 11/02/16 12:53 12:53 12:53 WBC 9.1 RBC 4.66 Hgb 15.6 Hct 45.1 MCV 96.8 MCH 33.5 MCHC 34.6 RDW Std Deviation 42.4 Plt Count 157 MPV 9.8 Immature Gran % (Auto) 0.2 Neut % (Auto) 76.7 H Lymph % (Auto) 12.8 L [place] % (Auto) 8.6 Eos % (Auto) 1.0 Baso % (Auto) 0.7 Neut # 7.0 Lymph # 1.2 [place] # 0.8 Eos # 0.1 Baso # 0.1 Abs Immat Gran (auto) 0.02 D-Dimer < 150 Turbidity < 20 Sodium 137 Potassium 3.9 Chloride 99 Carbon Dioxide 25 Anion Gap 13 BUN 8.0 L Creatinine 0.7 L GFR Calculation 118 BUN/Creatinine Ratio 11 Glucose 107 Calculated Osmolality 262 Calcium 9.5 Total Bilirubin 1.40 H Icterus Index < 2 AST 28 ALT 41 Alkaline Phosphatase 121 Troponin I 0.029 B-Natriuretic Peptide 2390 H Total Protein 7.3 Albumin 4.4 Globulin 2.9 Albumin/Globulin Ratio 1.5 Specimen Hemolysis < 15 Alcohol, Quantitative <10 <Jes Paz 11/03/16 02:13> - Imaging and Cardiology Echo: pending <Jes Paz 11/03/16 02:13> Imaging & Cardiology Narrative: 11/02/16 CXR Findings: Lungs are grossly clear. No pleural effusion or pneumothorax. Cardiac silhouette is moderately to severely enlarged. Mediastinal contours are normal. Pulmonary vascularity appears normal. Impression: Significant enlargement of the cardiac silhouette could be due to cardiomegaly or pericardial effusion. No acute pneumonia or overt congestive failure. 11/02/2016 ECG: ST, HR 102, LAE, LAD, RBBB. <Jes Paz 11/03/16 02:13> - EKG Interpretation EKG: sinus rhythm <Jes Paz 11/03/16 02:13> EKG interpretations - EKG EKG results cardiology: sinus rhythm <Jes Paz 11/03/16 02:13> EKG shows: tachycardia <Jes Paz 11/03/16 02:13> Assessment and Plan (1) Chest pain Current visit: Yes Status: Acute (2) Hypertensive urgency Current visit: Yes Status: Acute (3) Congestive heart failure Problem details: Acute/chronic Current visit: Yes Status: Acute (4) Tobacco abuse Current visit: Yes Status: Chronic (5) Alcohol abuse Current visit: Yes Status: Chronic (6) Hepatitis C Current visit: Yes Status: Acute <AvelinoManuel sal - 11/04/16 08:06> (1) Chest pain Current visit: Yes Status: Acute Trop neg x2 and ECG shows no acute ischemia. Chest pain relieved with Ntg. but his BP was 200's and he had CHF exacerbation which is likely the cause of his chest pain. Will need further cardiac workup as his heart failure warrants. - with stress test in the future as an out pt. (2) Congestive heart failure Current visit: Yes Status: Acute Echo to evaluate structure and function of heart and to determine type of CHF. Received Lasix 40 mg IV x2 yesterday for U/O 2100 ml last night. Cont Lasix IV daily. Agree with Coreg 6.25mg BID and lisinopril 20mg daily. Monitor I/O, Wts, lytes and renal function. Will need CHF instructions. (3) Hypertensive urgency Current visit: Yes Status: Acute BP improved with Ntg, at first cont Coreg and lisinopril. (4) Tobacco abuse Current visit: Yes Status: Chronic Advised cessation. Nicotine patch on. (5) Alcohol abuse Current visit: Yes Status: Chronic Receiving Serax and vitamins. He has had recent bloody stool. (6) Hepatitis C Current visit: Yes Status: Acute <Jes Paz - 11/03/16 02:25> - Attestation Attestation Narrative: 11/04/16 08:06 Recommendation After examining the patient I agree with the above assessment. I am involved in the formulation of the patient's plan of care. <Manuel Marie - 11/04/16 08:06> Hospital Course Summary Disclaimer: The visit summary below is not to be considered part of the above Progress Note. <Manuel Marie - 11/04/16 08:06> The visit summary below is not to be considered part of the above Progress Note. <Jes Paz - 11/03/16 01:19> Sepsis Assessment - Evaluation Sepsis screening result: No Definite Risk <Jes Paz - 11/03/16 01:19> Addendum entered and electronically signed by Jes Paz APRN 11/04/16 03:01: Likely alcoholic cardiomyopathy.
[2016-11-03] MEDS: ALBUTEROL/IPRATROPIUM 2.5mg-0.5mg/3ml NEB AEROSOL PRN ×2 (02:34→02:40)
[2016-11-03] MEDS ORDERED: FUROSEMIDE 100 MG/10 ML INJECTION IVP SCH (03:00)
[2016-11-03] MEDS: OXAZEPAM 15 MG CAPSULE PO SCH ×4 (03:03→20:49)
[2016-11-03] MEDS ORDERED: NICARDIPINE 50 MG in NS 500ml 500 ML IV PRN (03:34)
[2016-11-03] MEDS: PANTOPRAZOLE 20 MG TABLET PO SCH (06:30)
[2016-11-03] MEDS: ALBUTEROL/IPRATROPIUM 2.5mg-0.5mg/3ml NEB AEROSOL SCH ×4 (07:06→20:17)
[2016-11-03] MEDS ORDERED: FUROSEMIDE 100 MG/10 ML INJECTION IVP ONE (07:15)
[2016-11-03] MEDS: FUROSEMIDE 40 MG/4 ML INJECTION IVP SCH (08:08)
--- NOTE | 2016-11-03 08:16 | XRay Report ---
Indication: SOA, hypoxia PROCEDURE: XR chest 1V: Encounter: Initial Comparison: November 02, 2016 Findings: Lungs show increasing prominence of the pulmonary vascular markings without focal consolidative pneumonia. No pneumothorax or pleural effusion. Cardiac silhouette remains severely enlarged. Mediastinal contours are stable. Impression: Increasing prominence of the pulmonary vascular markings consistent with mild pulmonary edema. .
[2016-11-03] MEDS: ASPIRIN *EC* 81 MG TABLET PO SCH (08:40)
[2016-11-03] MEDS: FOLIC ACID 1 MG TABLET PO SCH (08:40)
[2016-11-03] MEDS: CARVEDILOL 6.25 MG TABLET PO SCH ×2 (08:40→18:32)
[2016-11-03] MEDS: NICOTINE 21 MG PATCH TD SCH (08:40)
[2016-11-03] MEDS: ENOXAPARIN 40 MG/0.4 ML INJECTION SQ SCH (08:43)
[2016-11-03] MEDS: NICOTINE PATCH REMOVAL TD SCH (08:44)
[2016-11-03] MEDS ORDERED: LISINOPRIL 20 MG TABLET PO SCH ×2 (09:00→15:30)
[2016-11-03] MEDS: AMLODIPINE 5 MG TABLET PO SCH (12:16)
--- NOTE | 2016-11-03 15:59 | Progress Note ---
Subjective: Solomon reports that he had a bad night but is really not sure what happened. He developed flash pulmonary edema with oxygen saturation dropping to 76% and marked elevation in blood pressure prompting transfer to the ICU and initiation of nicardipine drip around 3:30 AM. He was placed on BiPAP with improvement in O2 saturation and nursing reports that he rested/slept well thereafter. The patient reports he became mildly tremulous yesterday evening but otherwise has had no overt symptoms of alcohol withdrawal. He has some mild dyspnea this morning and intermittent cough although cough is improved from admission. He has chest pain with deep inspiration but no other rest chest pain. He denied nausea or vomiting and has had no diarrhea. He denies headache or generalized pain. Objective Vital signs: Temperature 97.6 F 11/03/16 12:00 Pulse Rate 91 11/03/16 13:31 Respiratory Rate 26 H 11/03/16 15:43 Blood Pressure 136/85 11/03/16 13:31 Pulse Oximetry 92 11/03/16 15:43 Oxygen Delivery Method BiPAP Fraction of Inspired Oxygen 45 I/O Weight down 3.2 kg EXAM General-NAD, alert fluent speech HEENT-conjunctiva clear, conjugate gaze Lungs-respirations slightly labored with diminished airflow, faint expiratory wheezing diffusely Cardiac-heart tones were obscured by pulmonary noise; sinus rhythm on telemetry Abd-soft, nontender, bowel sounds present Ext-+2 bilateral lower extremity edema Neuro-moving all extremities well, no tremor with arms outstretched Psych-calm, cooperative - Height/Weight/BMI: Height 1.75 m Weight 107.3 kg Body Mass Index 35.9 Results - Labs CBC & Chem 7: 11/02/16 12:53 11/03/16 03:19 Labs: Troponin 0.029-0.034-0.033-0.028 Cholesterol 134, LDL 84.6, HDL 39, triglycerides 52 TSH 1.41 - Echocardiogram Echocardiogram: Discussed with Dr. Marie-ejection fraction 40-45% - ECG Data Tracing #2 I reviewed this ECG and interpreted as documented below: Arrhythmias present: sinus tach Conduction abnormalities present: RBBB (LAD) Assessment and Plan (1) Congestive heart failure Problem details: Acute/chronic Current visit: Yes Status: Acute (2) Hypertensive urgency Current visit: Yes Status: Acute (3) Chest pain Current visit: Yes Status: Acute (4) Pulmonary edema cardiac cause Current visit: Yes Status: Acute DVT Prophylaxis: SCD's, Lovenox GI Prophylaxis: Protonix Resuscitation Status: Full Code Assessment and Plan: Assessment: CHF with flash pulmonary edema-clinical stage IV CHF Hypertensive emergency/urgency Chest pain/shortness of air-likely related to cardiomyopathy and acute heart failure Hepatitis C GERD Presumed COPD Chronic tobacco use Chronic alcohol use Diverticulosis Hematochezia Obesity-BMI 34.9 Plan: Developed flash pulmonary edema with associated hypertension overnight. Blood pressure and oxygenation improved with BiPAP. Remains on BiPAP today except brief period soft for meals and interactive with caregivers/family. Diuresing well, blood pressure improving. Amlodipine added earlier today, lisinopril increased to 40 mg daily per cardiology, carvedilol at 6.25 twice a day. Nicardipine drip currently off-resume if needed for sustained systolics greater than 170. Hydralazine when necessary available if needed. Ejection fraction 40-45%, likely alcoholic cardiomyopathy. Discussed with Dr. Marie-anticipate cardiac catheterization in the future. Chest pain reported today does not sound high risk for cardiac event, troponins unremarkable and EKGs without acute changes. Patient remains at high risk for alcohol withdrawal symptomatology and DTs, continue scheduled Serax and lorazepam for breakthrough withdrawal symptoms. Nicotine patch for chronic tobacco abuse. Chest x-ray reviewed by myself, EKG reviewed by myself, discussed with Dr. Marie and nursing; laboratory data reviewed and supplemental studies ordered. Multiple medications modified. Sepsis Assessment - Evaluation Sepsis screening result: No Definite Risk Hospital Course Summary Disclaimer: The visit summary below is not to be considered part of the above Progress Note. Hospital Course: 11/02/16 Patient presents with clinical stage IV CHF; likely systolic failure and possibly alcoholic cardiomyopathy although dramatically elevated blood pressures on admission may indicate diastolic dysfunction. Treatment has been initiated acutely with Lasix, carvedilol, lisinopril, and aspirin. Echocardiogram ordered and Dr. Marie consulted. Serial troponins being obtained. Patient may well have underlying coronary disease given long tobacco history. Lipids to be obtained. Patient is at high risk for alcohol withdrawal and indicates he becomes symptomatic by the end of the workday. Serax initiated at 4 times a day dosing to minimize withdrawal symptoms and lorazepam available as needed. 11/03/16 16:17 Developed flash pulmonary edema with associated hypertension overnight. Blood pressure and oxygenation improved with BiPAP. Remains on BiPAP today except brief period soft for meals and interactive with caregivers/family. Diuresing well, blood pressure improving. Amlodipine added earlier today, lisinopril increased to 40 mg daily per cardiology, carvedilol at 6.25 twice a day. Nicardipine drip currently off-resume if needed for sustained systolics greater than 170. Hydralazine when necessary available if needed. Ejection fraction 40-45%, likely alcoholic cardiomyopathy. Discussed with Dr. Marie-anticipate cardiac catheterization in the future. Chest pain reported today does not sound high risk for cardiac event, troponins unremarkable and EKGs without acute changes. Patient remains at high risk for alcohol withdrawal symptomatology and DTs, continue scheduled Serax and lorazepam for breakthrough withdrawal symptoms. Nicotine patch for chronic tobacco abuse.
[2016-11-03] MEDS: SALINE FLUSH 10ml SYRINGE IVF PRN (16:39)
--- NOTE | 2016-11-03 17:15 | Echocardiogram ---
DATE OF PROCEDURE November 02, 2016 This is a two-dimensional echo with spectral Doppler, color-flow and M-mode. It was obtained in a patient with cardiomyopathy. Left atrium is dilated. Left ventricle end-diastolic dimension is at the upper limits of normal. Left ventricle wall thickness is increased. LV systolic function is reduced with ejection fraction of about 40%-45%. Right atrium is normal. Right ventricle is normal. Aortic root dimension is normal. Mitral valve is morphologically normal with mild mitral regurgitation. Aortic valve was not visualized well. However, Doppler studies indicate no stenosis or insufficiency. Tricuspid valve shows mild tricuspid regurgitation with estimated pulmonary artery systolic pressure of 33. Pulmonary valve shows no pulmonary insufficiency. There is no pericardial effusion. IMPRESSION 1. Technically difficult study. 2. Left atrial dilation. 3. Left ventricular hypertrophy. 4. Global hypokinesia with ejection fraction of about 40%-45%. 5. Mild mitral regurgitation. 6. Mild tricuspid regurgitation with estimated pulmonary artery systolic pressure of 33. MTDD
[2016-11-03] MEDS: FUROSEMIDE 100 MG/10 ML INJECTION IVP SCH (20:50)
[2016-11-04] MEDS: OXAZEPAM 15 MG CAPSULE PO SCH ×4 (02:33→20:40)
[2016-11-04] MEDS: PANTOPRAZOLE 20 MG TABLET PO SCH (06:14)
[2016-11-04] MEDS: NICOTINE 21 MG PATCH TD SCH ×2 (06:24→08:15)
[2016-11-04] MEDS: ALBUTEROL/IPRATROPIUM 2.5mg-0.5mg/3ml NEB AEROSOL SCH ×4 (07:13→19:41)
[2016-11-04] MEDS: FUROSEMIDE 100 MG/10 ML INJECTION IVP SCH (08:14)
[2016-11-04] MEDS: FOLIC ACID 1 MG TABLET PO SCH (08:14)
[2016-11-04] MEDS: ASPIRIN *EC* 81 MG TABLET PO SCH (08:14)
[2016-11-04] MEDS: CARVEDILOL 6.25 MG TABLET PO SCH (08:14)
[2016-11-04] MEDS: ENOXAPARIN 40 MG/0.4 ML INJECTION SQ SCH (08:14)
[2016-11-04] MEDS: AMLODIPINE 5 MG TABLET PO SCH (08:15)
[2016-11-04] MEDS: NICOTINE PATCH REMOVAL TD SCH (08:15)
[2016-11-04] MEDS: LISINOPRIL 40 MG TABLET PO SCH (08:15)
[2016-11-04] MEDS: SALINE FLUSH 10ml SYRINGE IVF PRN (08:15)
[2016-11-04] MEDS: FUROSEMIDE 40 MG/4 ML INJECTION IVP SCH (09:35)
--- NOTE | 2016-11-04 12:24 | Cardiology Progress Note ---
Subjective Principal diagnosis: Chest pain, SOB <Latricia Cason - 11/04/16 12:26> Interval history: Solomon is seen in his room in CCU. He is much more alert and breathing with less difficulty. is now wearing O2 by nasal cannula. He asks about the plans to check his heart and when we plan to proceed with left heart cath. He denies chest pain or pressure at this time. <Latricia Cason - 11/04/16 14:32> Exam Vital signs: Temperature 98.6 F 11/05/16 16:01 Pulse Rate 90 11/05/16 16:01 Respiratory Rate 45 H 11/05/16 16:01 Blood Pressure 134/74 11/05/16 16:01 Pulse Oximetry 96 11/05/16 16:01 Oxygen Delivery Method Nasal Cannula Oxygen Flow Rate 6 Fraction of Inspired Oxygen 45 SaO2/FiO2 Ratio 225 <Louie Mariesein - 11/05/16 16:31> Temperature 97.6 F 11/04/16 09:06 Pulse Rate 97 11/04/16 08:01 Respiratory Rate 28 H 11/04/16 08:01 Blood Pressure 168/115 H 11/04/16 08:01 Pulse Oximetry 88 L 11/04/16 09:00 Oxygen Delivery Method Nasal Cannula Oxygen Flow Rate 6 Fraction of Inspired Oxygen 45 <Latricia Cason - 11/04/16 12:26> - Constitutional mild distress, cooperative <Latricia Cason 11/04/16 14:32> - Routine HEENT Exam Head: Present: normocephalic <Latricia Cason 11/04/16 14:32> ENT: Present: mucous membranes moist <Latricia Cason 11/04/16 14:32> - Routine Neck Exam Absent: JVD, carotid bruit <Latricia Cason 11/04/16 14:32> - Routine Chest/Breast/Axilla Exam Chest wall: Absent: tenderness <YoavLatricia Polanco 11/04/16 14:32> - Routine Respiratory Exam Present: decreased breath sounds, wheezes, crackles. Absent: CTA bilaterally <YoavLatricia Polanco 11/04/16 14:32> - Routine Cardiovascular Exam Present: no murmur, tachycardia <YoavLatricia Polanco 11/04/16 14:32> - Routine Abdominal Exam Present: soft, normoactive bowel sounds <Latricia Cason - 11/04/16 14:32> - Routine Extremities Exam Present: edema <Latricia Cason - 11/04/16 14:32> - Routine Skin Exam Present: intact, dry, warm <Latricia Cason - 11/04/16 14:32> - Routine Neurological Exam Present: alert, oriented X3 <Latricia Cason - 11/04/16 14:32> - Routine Psychiatric Exam Present: normal affect, normal thought process <Latricia Cason - 11/04/16 14: 32> - Additional findings Additional findings: Date of Exam: 11/02/16 Type of Exam(s): US echo doppler complete DATE OF PROCEDURE November 02, 2016 This is a two-dimensional echo with spectral Doppler, color-flow and M-mode. It was obtained in a patient with cardiomyopathy. Left atrium is dilated. Left ventricle end-diastolic dimension is at the upper limits of normal. Left ventricle wall thickness is increased. LV systolic function is reduced with ejection fraction of about 40%-45%. Right atrium is normal. Right ventricle is normal. Aortic root dimension is normal. Mitral valve is morphologically normal with mild mitral regurgitation. Aortic valve was not visualized well. However, Doppler studies indicate no stenosis or insufficiency. Tricuspid valve shows mild tricuspid regurgitation with estimated pulmonary artery systolic pressure of 33. Pulmonary valve shows no pulmonary insufficiency. There is no pericardial effusion. IMPRESSION 1. Technically difficult study. 2. Left atrial dilation. 3. Left ventricular hypertrophy. 4. Global hypokinesia with ejection fraction of about 40%-45%. 5. Mild mitral regurgitation. 6. Mild tricuspid regurgitation with estimated pulmonary artery systolic pressure of 33 Laboratory Results - last 48 hr 11/02/16 11/02/16 11/02/16 12:53 12:53 12:53 WBC 9.1 RBC 4.66 Hgb 15.6 Hct 45.1 MCV 96.8 MCH 33.5 MCHC 34.6 RDW Std Deviation 42.4 Plt Count 157 MPV 9.8 Immature Gran % (Auto) 0.2 Neut % (Auto) 76.7 H Lymph % (Auto) 12.8 L [place] % (Auto) 8.6 Eos % (Auto) 1.0 Baso % (Auto) 0.7 Neut # 7.0 Lymph # 1.2 [place] # 0.8 Eos # 0.1 Baso # 0.1 Abs Immat Gran (auto) 0.02 INR D-Dimer < 150 Turbidity < 20 Sodium 137 Potassium 3.9 Chloride 99 Carbon Dioxide 25 Anion Gap 13 BUN 8.0 L Creatinine 0.7 L GFR Calculation 118 BUN/Creatinine Ratio 11 Glucose 107 Calculated Osmolality 262 Calcium 9.5 Phosphorus Magnesium Total Bilirubin 1.40 H Icterus Index < 2 AST 28 ALT 41 Alkaline Phosphatase 121 Troponin I 0.029 B-Natriuretic Peptide 2390 H Total Protein 7.3 Albumin 4.4 Globulin 2.9 Albumin/Globulin Ratio 1.5 Triglycerides Cholesterol LDL Cholesterol, Calc VLDL Cholesterol HDL Cholesterol Cholesterol/HDL Ratio TSH Specimen Hemolysis < 15 Alcohol, Quantitative <10 11/02/16 11/02/16 11/03/16 16:20 22:13 03:19 WBC RBC Hgb Hct MCV MCH MCHC RDW Std Deviation Plt Count MPV Immature Gran % (Auto) Neut % (Auto) Lymph % (Auto) [place] % (Auto) Eos % (Auto) Baso % (Auto) Neut # Lymph # [place] # Eos # Baso # Abs Immat Gran (auto) INR D-Dimer Turbidity < 20 Sodium 138 Potassium 4.3 Chloride 97 L Carbon Dioxide 29 Anion Gap 12 BUN 15.0 D Creatinine 0.9 D GFR Calculation 88 BUN/Creatinine Ratio 17 Glucose 122 H Calculated Osmolality 268 Calcium 9.2 Phosphorus 5.4 H Magnesium 1.8 Total Bilirubin Icterus Index < 2 AST ALT Alkaline Phosphatase Troponin I 0.034 0.033 0.028 B-Natriuretic Peptide Total Protein Albumin Globulin Albumin/Globulin Ratio Triglycerides Cholesterol LDL Cholesterol, Calc VLDL Cholesterol HDL Cholesterol Cholesterol/HDL Ratio TSH 1.41 Specimen Hemolysis < 15 < 15 < 15 Alcohol, Quantitative 11/03/16 11/04/16 11/04/16 03:19 05:11 05:11 WBC 5.7 RBC 4.51 Hgb 14.9 Hct 45.4 MCV 100.7 H MCH 33.0 MCHC 32.8 RDW Std Deviation 46.6 Plt Count 166 MPV 10.1 Immature Gran % (Auto) 0.3 Neut % (Auto) 49.5 Lymph % (Auto) 23.6 [place] % (Auto) 19.2 H Eos % (Auto) 6.5 H Baso % (Auto) 0.9 Neut # 2.8 Lymph # 1.4 [place] # 1.1 H Eos # 0.4 Baso # 0.1 Abs Immat Gran (auto) 0.02 INR D-Dimer Turbidity < 20 Sodium 140 Potassium 3.9 Chloride 93 L Carbon Dioxide 37 H Anion Gap 10 BUN 21.0 H Creatinine 1.0 GFR Calculation 78 BUN/Creatinine Ratio 21 Glucose 92 Calculated Osmolality 272 Calcium 9.2 Phosphorus Magnesium 1.9 Total Bilirubin 1.20 Icterus Index < 2 AST 27 ALT 35 Alkaline Phosphatase 94 Troponin I B-Natriuretic Peptide Total Protein 6.8 Albumin 4.0 Globulin 2.8 Albumin/Globulin Ratio 1.4 Triglycerides 52 Cholesterol 134 LDL Cholesterol, Calc 84.6 VLDL Cholesterol 10.4 HDL Cholesterol 39 L Cholesterol/HDL Ratio 3.4 TSH Specimen Hemolysis < 15 Alcohol, Quantitative 11/04/16 05:11 WBC RBC Hgb Hct MCV MCH MCHC RDW Std Deviation Plt Count MPV Immature Gran % (Auto) Neut % (Auto) Lymph % (Auto) [place] % (Auto) Eos % (Auto) Baso % (Auto) Neut # Lymph # [place] # Eos # Baso # Abs Immat Gran (auto) INR 1.31 H D-Dimer Turbidity Sodium Potassium Chloride Carbon Dioxide Anion Gap BUN Creatinine GFR Calculation BUN/Creatinine Ratio Glucose Calculated Osmolality Calcium Phosphorus Magnesium Total Bilirubin Icterus Index AST ALT Alkaline Phosphatase Troponin I B-Natriuretic Peptide Total Protein Albumin Globulin Albumin/Globulin Ratio Triglycerides Cholesterol LDL Cholesterol, Calc VLDL Cholesterol HDL Cholesterol Cholesterol/HDL Ratio TSH Specimen Hemolysis Alcohol, Quantitative Acetaminophen (Tylenol) 1,000 mg PO Q6H PRN PRN Reason: Pain Albuterol/Ipratropium (Duoneb) 3 ml AEROSOL QID [facility] Last Admin: 11/04/16 07:13 Dose: 3 ml Albuterol/Ipratropium (Duoneb) 3 ml AEROSOL QID PRN Last Admin: 11/03/16 02:40 Dose: 3 ml Amlodipine Besylate (Norvasc) 5 mg PO DAILY [facility] Last Admin: 11/04/16 08:15 Dose: 5 mg Aspirin (Ecotrin) 81 mg PO DAILY [facility] Last Admin: 11/04/16 08:14 Dose: 81 mg Carvedilol (Coreg) 6.25 mg PO BIDWM [facility] Last Admin: 11/04/16 08:14 Dose: 6.25 mg Enoxaparin Sodium (Lovenox) 40 mg SQ DAILY [facility] Last Admin: 11/04/16 08:14 Dose: 40 mg Folic Acid (Folate) 1 mg PO DAILY [facility] Last Admin: 11/04/16 08:14 Dose: 1 mg Furosemide (Lasix) 40 mg IVP DAILY [facility] Last Admin: 11/04/16 09:35 Dose: Not Given Furosemide (Lasix) 80 mg IVP Q12HR [facility] Last Admin: 11/04/16 08:14 Dose: 80 mg Hydralazine HCl (Apresoline) 10 mg IVP Q4H PRN Nicardipine HCl 50 mg/ Sodium (Chloride) 500 mls @ 50 mls/hr IV .Q10H PRN; 5 MG /HR PRN Reason: Protocol Last Titration: 11/03/16 04:34 Dose: 0 mg/hr, 0 mls/hr Lisinopril (Prinivil) 40 mg PO DAILY [facility] Last Admin: 11/04/16 08:15 Dose: 40 mg Lorazepam (Ativan) 1 - 2 mg PO Q4H PRN PRN Reason: Alcohol Withdrawal Last Admin: 11/03/16 22:40 Dose: 2 mg Lorazepam (Ativan Inj) 1 - 2 mg IVP Q4H PRN PRN Reason: Alcohol withdrawl Last Admin: 11/04/16 09:23 Dose: 1 mg Nicotine (Nicoderm) 21 mg TD DAILY [facility] Last Admin: 11/04/16 08:15 Dose: Not Given Nicotine (Nicotine Patch Removal) 1 removal TD DAILY [facility] Last Admin: 11/04/16 08:15 Dose: Not Given Nitroglycerin (Nitrostat) 0.4 mg SL Q5MIN3 PRN PRN Reason: Chest pain Last Admin: 11/02/16 13:05 Dose: 0.4 mg Oxazepam (Serax) 30 mg PO Q6HR [facility] Last Admin: 11/04/16 08:15 Dose: 30 mg Pantoprazole Sodium (Protonix) 20 mg PO ACB [facility] Last Admin: 11/04/16 06:14 Dose: 20 mg Sodium Chloride (Iv Flush) 10 - 80 ml IVF PRN PRN PRN Reason: Flushing Last Admin: 11/04/16 08:15 Dose: 30 ml Thiamine HCl (Vitamin B-1) 100 mg PO DAILY [facility] Last Admin: 08/16/17 08:15 Dose: 100 mg <Latricia Cason - 11/04/16 14:32> - Urinary Catheter Management Urethral Cath placed during this visit: no <Manuel Marie - 11/05/16 16:31> yes <Latricia Cason - 11/05/16 16:24> Urethral indwelling: Yes <Latricia Cason - 11/05/16 16:24> Reason for continuing: Accurate I&O/Aggressive Diuresis <Latricia Cason - 16:24> Insertion date: 11/03/16 <Latricia Cason - 11/04/16 12:26> Insertion time: 03:30 <Latricia Cason - 11/04/16 12:26> Progress Note-A&P (1) Chest pain Status: Acute Current Visit: Yes (2) Hypertensive urgency Status: Acute Current Visit: Yes (3) Congestive heart failure Problem details: Acute/chronic Systolic; global hypokinesia with ejection fraction 40-45% by echo Status: Acute Current Visit: Yes (4) Tobacco abuse Status: Chronic Current Visit: Yes (5) Alcohol abuse Status: Chronic Current Visit: Yes (6) Hepatitis C Status: Acute Current Visit: Yes (7) Cardiomyopathy Problem details: EF 40-45% Status: Acute Current Visit: Yes <Manuel Marie - 11/05/16 16:31> (1) Chest pain Status: Acute Assessment and plan: Due to cardiomyopathy, will proceed with left heart to rule out CAD blockages as a cause. Current Visit: Yes (2) Hypertensive urgency Status: Acute Assessment and plan: Continue Lisinopril at 40mg, increase Coreg to 12.5mg today. Change Lasix to 80mg po BID Current Visit: Yes (3) Congestive heart failure Problem details: Acute/chronic Systolic; global hypokinesia with ejection fraction 40-45% by echo Status: Acute Assessment and plan: Change Lasix to 80mg po BID Current Visit: Yes (4) Tobacco abuse Status: Chronic Current Visit: Yes (5) Alcohol abuse Status: Chronic Current Visit: Yes (6) Hepatitis C Status: Acute Current Visit: Yes (7) Cardiomyopathy Problem details: EF 40-45% Status: Acute Assessment and plan: Likely Alcohol abuse has caused Cardiomyopathy, other possibilities are uncontrolled hypertension or CAD blockages. Increased Coreg to 12.5, continue lisinopril at 40mg. Current Visit: Yes <Latricia Cason - 11/05/16 16:23> - Time Spent With Patient Total time spent is greater than 50% in coordination of care (as documented) at patient's floor/unit and/or counseling patient: <Manuel Marie - 11/05/16 16:31> Total time spent is greater than 50% in coordination of care (as documented) at patient's floor/unit and/or counseling patient: <Latricia Cason - 11/04/16 12:26> less than 15 minutes <Latricia Cason - 11/04/16 14:39> - Attestation Attestation Narrative: Recommendation After examining the patient I agree with the above assessment. I am involved in the formulation of the patient's plan of care. <CasiManuel chairez - 11/05/16 16:31> Sepsis Assessment - Evaluation Sepsis screening result: No Definite Risk <YoavLatricia Collin - 11/04/16 12:26> Hospital Course Summary Disclaimer: The visit summary below is not to be considered part of the above Progress Note. <Louie Mariesein - 11/05/16 16:31> The visit summary below is not to be considered part of the above Progress Note. <YoavLatricia Collin - 11/04/16 12:26> Hospital Course: 11/02/16 Patient presents with clinical stage IV CHF; likely systolic failure and possibly alcoholic cardiomyopathy although dramatically elevated blood pressures on admission may indicate diastolic dysfunction. Treatment has been initiated acutely with Lasix, carvedilol, lisinopril, and aspirin. Echocardiogram ordered and Dr. Marie consulted. Serial troponins being obtained. Patient may well have underlying coronary disease given long tobacco history. Lipids to be obtained. Patient is at high risk for alcohol withdrawal and indicates he becomes symptomatic by the end of the workday. Serax initiated at 4 times a day dosing to minimize withdrawal symptoms and lorazepam available as needed. 11/03/16 16:17 Developed flash pulmonary edema with associated hypertension overnight. Blood pressure and oxygenation improved with BiPAP. Remains on BiPAP today except brief period soft for meals and interactive with caregivers/family. Diuresing well, blood pressure improving. Amlodipine added earlier today, lisinopril increased to 40 mg daily per cardiology, carvedilol at 6.25 twice a day. Nicardipine drip currently off-resume if needed for sustained systolics greater than 170. Hydralazine when necessary available if needed. Ejection fraction 40-45%, likely alcoholic cardiomyopathy. Discussed with Dr. Marie-anticipate cardiac catheterization in the future. Chest pain reported today does not sound high risk for cardiac event, troponins unremarkable and EKGs without acute changes. Patient remains at high risk for alcohol withdrawal symptomatology and DTs, continue scheduled Serax and lorazepam for breakthrough withdrawal symptoms. Nicotine patch for chronic tobacco abuse. 11/03/16 Cardiology (1) Chest pain: Trop neg x2 and ECG shows no acute ischemia. Chest pain relieved with Ntg. but his BP was 200's and he had CHF exacerbation which is likely the cause of his chest pain. Will need further cardiac workup as his heart failure warrants. with stress test in the future as an out pt. (2) Congestive heart failure: Echo to evaluate structure and function of heart and to determine type of CHF. Received Lasix 40 mg IV x2 yesterday for U/O 2100 ml last night. Cont Lasix IV daily. Agree with Coreg 6.25mg BID and lisinopril 20mg daily. Monitor I/O, Wts, lytes and renal function. Will need CHF instructions. (3) Hypertensive urgency: BP improved with Ntg, at first cont Coreg and lisinopril. (4) Tobacco abuse: Advised cessation. Nicotine patch on. (5) Alcohol abuse: Receiving Serax and vitamins. He has had recent bloody stool. (6) Hepatitis C 11/04/16 14:34 Plan left heart cath tomorrow. Increase Coreg <Latricia Cason - 11/05/16 16:24>
[2016-11-04] MEDS: FUROSEMIDE 80 MG TABLET PO SCH ×2 (13:33→18:04)
[2016-11-04] MEDS: CARVEDILOL 12.5 MG TABLET PO SCH (18:05)
--- NOTE | 2016-11-04 20:38 | Progress Note ---
Subjective: Solomon reports breathing is better overall from admission but he continues to wheeze intermittently and cough frequently. There is no sputum production is had no fever. He's really not been out of bed other than up to bedside commode so is unsure what his exertional capacity is. He continues to have tightness in his chest but no palpitations. He denied nausea, heartburn, or abdominal pain. His appetite is good and he tolerates being off BiPAP for meals and for longer periods today on 6 L O2. He denied lightheadedness and has had no fever although he feels feverish at times and reports having some sweatiness intermittently. Nursing reports patient has been slightly more irritable today that he responds better to IV Ativan and oral when he describes restlessness/tremulousness due to alcohol withdrawal. Patient reports he didn't sleep well overnight waking up at frequent intervals. Objective Vital signs: Temperature 98.6 F 11/04/16 12:01 Pulse Rate 91 11/04/16 16:00 Respiratory Rate 24 11/04/16 19:41 Blood Pressure 139/89 11/04/16 16:00 Pulse Oximetry 92 11/04/16 19:41 Oxygen Delivery Method High Flow Nasal Cannula Oxygen Flow Rate 6 Fraction of Inspired Oxygen 40 I/O 1620/5103 Weight minimally changed EXAM General-NAD, alert HEENT-conjunctiva clear, sclera anicteric Lungs-respirations nonlabored, decreased airflow throughout, faint wheezing present bilaterally Cardiac-regular rhythm, S1-S2 Abd-soft, nontender, bowel sounds present Ext-+1 bilateral lower extremity edema, improved from admission/yesterday Neuro-moving all extremities well, no tremor with arms outstretched (patient reports he can suppress tremors) Psych-calm, cooperative - Height/Weight/BMI: Height 1.75 m Weight 107 kg Body Mass Index 35.9 Results - Labs CBC & Chem 7: 11/04/16 05:11 11/04/16 05:11 Labs: INR 1.31 Bilirubin 1.2, AST 27, ALT 35, alkaline phosphatase 94 Assessment and Plan (1) Congestive heart failure Problem details: Acute/chronic Systolic; global hypokinesia with ejection fraction 40-45% by echo Current visit: Yes Status: Acute (2) Hypertensive urgency Current visit: Yes Status: Acute (3) Chest pain Current visit: Yes Status: Acute (4) Pulmonary edema cardiac cause Current visit: Yes Status: Acute DVT Prophylaxis: SCD's, Lovenox Resuscitation Status: Full Code Assessment and Plan: Assessment: CHF with flash pulmonary edema-clinical stage IV CHF Hypertensive emergency/urgency Chest pain/shortness of air-likely related to cardiomyopathy and acute heart failure Chronic alcohol use with withdrawal Hepatitis C GERD Presumed COPD Chronic tobacco use Depression Diverticulosis Hematochezia Obesity-BMI 34.9 Plan: Diuresing well, oxygenation and edema improving. Respiratory symptoms partially improved. Chest x-ray in a.m.; continue BiPAP as tolerates. Titrate O2 as status permits. Blood pressure improving overall on Amlodipine 5 mg, lisinopril 40 mg daily, and carvedilol increased to 12.5 mg bid earlier today by cardiology. Nicardipine drip remain off-resume if needed for sustained systolics greater than 170. Hydralazine available if needed. Ejection fraction 40-45%, likely alcoholic cardiomyopathy. Discussed with cardiology-anticipate cardiac catheterization tomorrow afternoon if patient clinically stable. Ongoing chest discomfort, no indication of acute cardiac event, troponins unremarkable and EKGs without acute changes. Patient remains at high risk for alcohol withdrawal and more irritable today, continue scheduled Serax and lorazepam for breakthrough withdrawal symptoms. Frequency of IV lorazepam increase to every 2 hours per nursing request. Patient describes depressive symptoms and self-medicating with alcohol- agreeable to psychiatric consultation and medication to try to improve chance of recovery. Nicotine patch for chronic tobacco abuse. Up in chair; PT/OT consults. Chest x-ray in a.m., discussed with Latricia Cason APRN and nursing; laboratory data reviewed. Remains at high risk for complications. Sepsis Assessment - Evaluation Sepsis screening result: No Definite Risk Hospital Course Summary Disclaimer: The visit summary below is not to be considered part of the above Progress Note. Hospital Course: 11/02/16 [facility] Patient presents with clinical stage IV CHF; likely systolic failure and possibly alcoholic cardiomyopathy although dramatically elevated blood pressures on admission may indicate diastolic dysfunction. Treatment has been initiated acutely with Lasix, carvedilol, lisinopril, and aspirin. Echocardiogram ordered and Dr. Marie consulted. Serial troponins being obtained. Patient may well have underlying coronary disease given long tobacco history. Lipids to be obtained. Patient is at high risk for alcohol withdrawal and indicates he becomes symptomatic by the end of the workday. Serax initiated at 4 times a day dosing to minimize withdrawal symptoms and lorazepam available as needed. 11/03/16 16:17-Elena Developed flash pulmonary edema with associated hypertension overnight. Blood pressure and oxygenation improved with BiPAP. Remains on BiPAP today except brief period soft for meals and interactive with caregivers/family. Diuresing well, blood pressure improving. Amlodipine added earlier today, lisinopril increased to 40 mg daily per cardiology, carvedilol at 6.25 twice a day. Nicardipine drip currently off-resume if needed for sustained systolics greater than 170. Hydralazine when necessary available if needed. Ejection fraction 40-45%, likely alcoholic cardiomyopathy. Discussed with Dr. Marie-anticipate cardiac catheterization in the future. Chest pain reported today does not sound high risk for cardiac event, troponins unremarkable and EKGs without acute changes. Patient remains at high risk for alcohol withdrawal symptomatology and DTs, continue scheduled Serax and lorazepam for breakthrough withdrawal symptoms. Nicotine patch for chronic tobacco abuse. 11/03/16 Cardiology (1) Chest pain: Trop neg x2 and ECG shows no acute ischemia. Chest pain relieved with Ntg. but his BP was 200's and he had CHF exacerbation which is likely the cause of his chest pain. Will need further cardiac workup as his heart failure warrants. with stress test in the future as an out pt. (2) Congestive heart failure: Echo to evaluate structure and function of heart and to determine type of CHF. Received Lasix 40 mg IV x2 yesterday for U/O 2100 ml last night. Cont Lasix IV daily. Agree with Coreg 6.25mg BID and lisinopril 20mg daily. Monitor I/O, Wts, lytes and renal function. Will need CHF instructions. (3) Hypertensive urgency: BP improved with Ntg, at first cont Coreg and lisinopril. (4) Tobacco abuse: Advised cessation. Nicotine patch on. (5) Alcohol abuse: Receiving Serax and vitamins. He has had recent bloody stool. (6) Hepatitis C 11/04/16 20:56-Elena Diuresing well, oxygenation and edema improving. Respiratory symptoms partially improved. Chest x-ray in a.m.; continue BiPAP as tolerates. Titrate O2 as status permits. Blood pressure improving overall on Amlodipine 5 mg, lisinopril 40 mg daily, and carvedilol increased to 12.5 mg bid earlier today by cardiology. Nicardipine drip remain off-resume if needed for sustained systolics greater than 170. Hydralazine available if needed. Ejection fraction 40-45%, likely alcoholic cardiomyopathy. Discussed with cardiology-anticipate cardiac catheterization tomorrow afternoon if patient clinically stable. Ongoing chest discomfort, no indication of acute cardiac event, troponins unremarkable and EKGs without acute changes. Patient remains at high risk for alcohol withdrawal and more irritable today, continue scheduled Serax and lorazepam for breakthrough withdrawal symptoms. Frequency of IV lorazepam increase to every 2 hours per nursing request. Patient describes depressive symptoms and self-medicating with alcohol- agreeable to psychiatric consultation and medication to try to improve chance of recovery. 11/04/16 20:58
[2016-11-05] MEDS: OXAZEPAM 15 MG CAPSULE PO SCH ×4 (02:13→20:25)
[2016-11-05] MEDS: HYDRALAZINE 20 MG/ML INJECTION IVP PRN (04:28)
[2016-11-05] MEDS: PANTOPRAZOLE 20 MG TABLET PO SCH (05:34)
[2016-11-05] MEDS: ALBUTEROL/IPRATROPIUM 2.5mg-0.5mg/3ml NEB AEROSOL SCH ×4 (07:23→21:07)
--- NOTE | 2016-11-05 07:58 | XRay Report ---
Indication: pulmonary edema PROCEDURE: XR chest 1V: Encounter: Initial Comparison: November 03, 2016 Findings: Prior pulmonary vascular congestion has resolved. Improving aeration of the lower lobes. No new airspace disease. No pleural effusion or pneumothorax. Cardiac silhouette remains enlarged. Mediastinal contours are stable. Impression: Improved pulmonary edema. .
[2016-11-05] MEDS: CARVEDILOL 12.5 MG TABLET PO SCH ×2 (08:17→18:05)
[2016-11-05] MEDS: FOLIC ACID 1 MG TABLET PO SCH (08:17)
[2016-11-05] MEDS: ASPIRIN *EC* 81 MG TABLET PO SCH (08:17)
[2016-11-05] MEDS: ENOXAPARIN 40 MG/0.4 ML INJECTION SQ SCH (08:17)
[2016-11-05] MEDS: NICOTINE 21 MG PATCH TD SCH (08:17)
[2016-11-05] MEDS: NICOTINE PATCH REMOVAL TD SCH (08:17)
[2016-11-05] MEDS: FUROSEMIDE 80 MG TABLET PO SCH ×2 (08:17→18:05)
[2016-11-05] MEDS: LISINOPRIL 40 MG TABLET PO SCH (08:18)
[2016-11-05] MEDS: AMLODIPINE 5 MG TABLET PO SCH (08:18)
--- NOTE | 2016-11-05 11:06 | Progress Note ---
Subjective: The patient was seen earlier this morning in his room accompanied by his sister. He was sleeping, but awoke easily. He complained of hurting all over " on the inside". When asked more specifically about pain he admitted to some mild headache and mild abdominal discomfort. He denied any chest pain. He did admit to pain in his arms, legs and back. He complains of mild shortness of breath. He complains of feeling anxious but is not tremulous. He ate okay this morning. He denies nausea or vomiting. He has a Alex catheter in place with good urine output. He wants to proceed with heart catheterization as soon as possible. Per his nurse, he walked in the hallway today and sat up in a chair for breakfast without difficulty. His blood pressure is better controlled with BiPAP on but he has been reluctant to wear it. Objective Vital signs: Temperature 98.5 F 11/05/16 07:11 Pulse Rate 100 11/05/16 08:18 Respiratory Rate 24 11/05/16 10:47 Blood Pressure 173/99 H 11/05/16 08:18 Pulse Oximetry 97 11/05/16 10:47 Oxygen Delivery Method High Flow Nasal Cannula Oxygen Flow Rate 6 Fraction of Inspired Oxygen 45 SaO2/FiO2 Ratio 225 Height/Weight/BMI: Height 1.75 m Weight 102.4 kg Body Mass Index 35.9 Comments: Cumulative I&O is -9.6 L GEN-drowsy but arousable, no tremulousness, no acute distress, oriented to [facility] emergency room, October 2016 HEENT-sclera are anicteric, pupils are equal, oropharynx is moist NECK-supple CV-regular rate and rhythm without murmur CHEST-audible wheezing heard without stethoscope, on lung exam with stethoscope he has some coarse breath sounds bilaterally and wheezing throughout the lung hoover ABD-soft, obese, nontender with positive bowel sounds -Alex in place with good urine output EXT-no edema of the extremities NEURO-moves all 4 extremities without difficulties SKIN-warm and dry and without rashes Results - Labs CBC & Chem 7: 11/04/16 05:11 11/05/16 04:33 Microbiology Results: ABG on 6 L reveals a pH of 7.37, PCO2 72, PO2 of 84 - ABG Interpretation ABG results: 08/17/17 10:35 ABG pH 7.370 ABG pCO2 72 H* ABG pO2 84 ABG HCO3 42 H ABG Total CO2 43.8 H ABG O2 Saturation 96.0 ABG Base Excess 13.3 H - Imaging and Cardiology Chest x-ray Status: image reviewed by me Additional comments: Chest x-ray today on my review and per radiology reveals cardiac silhouette to be enlarged but stable, improved pulmonary edema. Assessment and Plan (1) Chest pain Current visit: Yes Status: Acute (2) Hypertensive urgency Current visit: Yes Status: Acute (3) Congestive heart failure Problem details: Acute/chronic Systolic; global hypokinesia with ejection fraction 40-45% by echo Current visit: Yes Status: Acute (4) Pulmonary edema cardiac cause Current visit: Yes Status: Acute DVT Prophylaxis: Lovenox GI Prophylaxis: Protonix Resuscitation Status: Full Code Assessment and Plan: 11/05/2016-Dr. Valdes Assessment: CHF (EF 40-45% -possible alcoholic cardiomyopathy) with flash pulmonary edema- clinical stage IV CHF Hypertensive emergency/urgency Chest pain/shortness of air-likely related to cardiomyopathy and acute heart failure Chronic alcohol use with withdrawal Acute on probable chronic hypoxic and hypercapnic respiratory failure Hepatitis C GERD Presumed COPD/consider COPD exacerbation diagnosis Chronic tobacco use Depression Diverticulosis Hematochezia Obesity-BMI 34.9 Plan: Regarding pulmonary edema, the patient is diuresing well and is now on oral Lasix. Chest x-ray is improving. Continue BiPAP as tolerated. Regarding COPD and CO2 retention, continue breathing treatments. Consider steroids. Regarding cardiomegaly and CHF, heart catheterization per Dr. Marie when patient will tolerate lying flat for procedure Regarding Hypertensive emergency, the patient is off of nicardipine drip. He continues on amlodipine, lisinopril and carvedilol with as needed hydralazine available. Continue Serax and when necessary lorazepam for alcohol withdrawal Psychiatry consultation regarding alcoholism, possible depression versus bipolar versus other, competency to make medical decisions. Discussed with the additions, nursing home social worker for psychiatry. Continue nicotine patch for tobacco addiction. Increase activity as tolerated. Repeat CBC and basic metabolic profile tomorrow. Continue thiamine and folate regarding alcoholism Greater than 45 minutes of critical care time spent seeing and evaluating the patient today. Sepsis Assessment - Evaluation Sepsis screening result: No Definite Risk Hospital Course Summary Disclaimer: The visit summary below is not to be considered part of the above Progress Note. Hospital Course: 11/02/16 [facility] Patient presents with clinical stage IV CHF; likely systolic failure and possibly alcoholic cardiomyopathy although dramatically elevated blood pressures on admission may indicate diastolic dysfunction. Treatment has been initiated acutely with Lasix, carvedilol, lisinopril, and aspirin. Echocardiogram ordered and Dr. Marie consulted. Serial troponins being obtained. Patient may well have underlying coronary disease given long tobacco history. Lipids to be obtained. Patient is at high risk for alcohol withdrawal and indicates he becomes symptomatic by the end of the workday. Serax initiated at 4 times a day dosing to minimize withdrawal symptoms and lorazepam available as needed. 11/03/16 16:17-Elena Developed flash pulmonary edema with associated hypertension overnight. Blood pressure and oxygenation improved with BiPAP. Remains on BiPAP today except brief period soft for meals and interactive with caregivers/family. Diuresing well, blood pressure improving. Amlodipine added earlier today, lisinopril increased to 40 mg daily per cardiology, carvedilol at 6.25 twice a day. Nicardipine drip currently off-resume if needed for sustained systolics greater than 170. Hydralazine when necessary available if needed. Ejection fraction 40-45%, likely alcoholic cardiomyopathy. Discussed with Dr. Marie-anticipate cardiac catheterization in the future. Chest pain reported today does not sound high risk for cardiac event, troponins unremarkable and EKGs without acute changes. Patient remains at high risk for alcohol withdrawal symptomatology and DTs, continue scheduled Serax and lorazepam for breakthrough withdrawal symptoms. Nicotine patch for chronic tobacco abuse. 11/03/16 Cardiology (1) Chest pain: Trop neg x2 and ECG shows no acute ischemia. Chest pain relieved with Ntg. but his BP was 200's and he had CHF exacerbation which is likely the cause of his chest pain. Will need further cardiac workup as his heart failure warrants. with stress test in the future as an out pt. (2) Congestive heart failure: Echo to evaluate structure and function of heart and to determine type of CHF. Received Lasix 40 mg IV x2 yesterday for U/O 2100 ml last night. Cont Lasix IV daily. Agree with Coreg 6.25mg BID and lisinopril 20mg daily. Monitor I/O, Wts, lytes and renal function. Will need CHF instructions. (3) Hypertensive urgency: BP improved with Ntg, at first cont Coreg and lisinopril. (4) Tobacco abuse: Advised cessation. Nicotine patch on. (5) Alcohol abuse: Receiving Serax and vitamins. He has had recent bloody stool. (6) Hepatitis C 11/04/16 20:56-Elena Diuresing well, oxygenation and edema improving. Respiratory symptoms partially improved. Chest x-ray in a.m.; continue BiPAP as tolerates. Titrate O2 as status permits. Blood pressure improving overall on Amlodipine 5 mg, lisinopril 40 mg daily, and carvedilol increased to 12.5 mg bid earlier today by cardiology. Nicardipine drip remain off-resume if needed for sustained systolics greater than 170. Hydralazine available if needed. Ejection fraction 40-45%, likely alcoholic cardiomyopathy. Discussed with cardiology-anticipate cardiac catheterization tomorrow afternoon if patient clinically stable. Ongoing chest discomfort, no indication of acute cardiac event, troponins unremarkable and EKGs without acute changes. Patient remains at high risk for alcohol withdrawal and more irritable today, continue scheduled Serax and lorazepam for breakthrough withdrawal symptoms. Frequency of IV lorazepam increase to every 2 hours per nursing request. Patient describes depressive symptoms and self-medicating with alcohol- agreeable to psychiatric consultation and medication to try to improve chance of recovery. 11/04/16 20:58
[2016-11-05] MEDS ORDERED: LIDOCAINE 1% (10mg/ml) 30ml SDV INJ ONE (11:34)
[2016-11-05] MEDS ORDERED: HEPARIN 1,000 UNITS/500 ML PREMIX (*CVL ONLY*) IV ONE (11:34)
[2016-11-05] MEDS ORDERED: IOHEXOL 350mg/ml 200ml BOTTLE ONE (11:35)
[2016-11-05] MEDS ORDERED: NITROGLYCERIN 50MG INJECTION IV ONE (12:30)
[2016-11-05] MEDS ORDERED: MIDAZOLAM 2mg/2ml INJECTION ONE (12:30)
[2016-11-05] MEDS ORDERED: Verapamil 5 MG/2 ML VIAL ONE (12:30)
[2016-11-05] MEDS ORDERED: FentaNYL 100 MCG/2 ML INJECTION ONE (12:30)
[2016-11-05] MEDS ORDERED: HEPARIN 1,000unit/ml INJECTION 10ml ONE (12:31)
[2016-11-05] MEDS ORDERED: NS 1,000 ML ONE (13:08)
[2016-11-05] MEDS ORDERED: MAG-AL + SIM ORAL LIQUID 30ml PO PRN (13:24)
[2016-11-05] MEDS ORDERED: ATROPINE 1 MG/ML INJECTION IVP PRN (13:24)
[2016-11-05] MEDS ORDERED: NITROGLYCERIN 0.4 MG SUBLINGUAL TABLET SL PRN (13:24)
[2016-11-05] MEDS ORDERED: Bisacodyl EC TAB 5 MG TABLET PO PRN (13:24)
[2016-11-05] MEDS ORDERED: METOCLOPRAMIDE 10mg/2ml INJECTION IVP PRN (13:24)
[2016-11-05] MEDS ORDERED: ACETAMINOPHEN 325 MG TABLET PO PRN (13:24)
[2016-11-05] MEDS ORDERED: PROMETHAZINE 25 MG INJECTION IVP PRN (13:24)
[2016-11-05] MEDS ORDERED: BISACODYL 10 MG SUPPOSITORY RECTALLY PRN (13:24)
[2016-11-05] MEDS ORDERED: ONDANSETRON 4 MG/2 ML INJECTION IVP PRN (13:24)
[2016-11-05] MEDS ORDERED: HYDROCODONE/APAP 5mg/325mg TABLET PO PRN (13:24)
[2016-11-05] MEDS ORDERED: MORPHINE SULFATE 4 MG SYRINGE IVP PRN ×2 (13:24)
[2016-11-05] MEDS ORDERED: LORazepam 0.5 MG TABLET PO PRN (13:24)
--- NOTE | 2016-11-05 13:26 | Cardiac Catheterization Report ---
DATE OF PROCEDURE November 05, [address] Prachi Parker The patient is a 51-year-old gentleman who was admitted with chest pain, shortness of breath, congestive heart failure and abnormal LV function with cardiomyopathy and was referred for further evaluation by cardiac catheterization and possible intervention. Informed consent was obtained after explaining the procedure and the potential risks to the patient who agreed to proceed with the procedure. PROCEDURE 1. Left heart catheterization. 2. Coronary angiography. 3. Left ventriculography. TECHNIQUE He was prepped and draped in the usual sterile techniques. 1% lidocaine was used for local anesthesia. Using modified Seldinger technique, arterial access was obtained into the right radial artery with placement of a 6-[place]uv[place] arterial sheath. LEFT VENTRICULOGRAPHY Left ventriculography in single-plane [place] LEON shallow projection showed normal LV systolic function with ejection fraction of about 60% with no mitral regurgitation or gradient across the aortic valve. LVEDP was elevated at about 25. CORONARY ANGIOGRAPHY Left main was free of significant lesions. Left anterior descending artery was a [id number] caliber vessel which had about 40% stenosis. Diagonal also had about 40% stenosis. It was a [id number] caliber vessel. Left circumflex artery was nondominant and a [id number] caliber vessel with about 50% stenosis distally. Right coronary artery was quite large and dominant with diffuse irregularities with no stenosis greater than 30%. The patient tolerated the procedure well with no complications. IMPRESSION 1. Normal LV systolic function with ejection fraction of about 60%. 2. Moderate coronary artery disease as described above. 3. Elevated LV end-diastolic pressure. PLAN Medical management. OCTAVIO
[2016-11-05] MEDS ORDERED: NS 1,000 ML IV SCH (13:45)
--- NOTE | 2016-11-05 20:06 | Neuropsychiatric Consult ---
[facility] HPI Date: 11/05/16 Reason for Consultation: Alcohol withdrawal Start Time: 19:30 Stop Time: 20:00 History of Present Illness: HPI: 51 Y/O CM with a long hx of alcohol dependence admitted for CP and SOA. Pt has been drinking heavily and psychiatry was consulted for alcohol WD and possible depression. On face to face the pt is slightly confused. He is oriented x 3 but is not a good historian. He is focused on going out side to smoke and has poor insight into his current physical condition. He asks several times to leave and tries to leave at one point. He denies any S/I. STRESSORS: Pt is focused on wanting to go outside and smoke. He states this is his main stressor. ' PSYCH ROS: Pt does report feeling depressed but feels it is mild. He reports high anxiety and feels this is due to "not being able to smoke". He denies penny or psychosis. He does report some visual hallucinations at times and nursing reports he comments about people in the room who are not really there. PAST PSYCH: Pt states he has never seen a psychiatrist, he has never tried to harm himself or been in a psychiatric hospital. SUBSTANCE ABUSE: Long hx of alcohol dependence. States he drinks more than 20 beers/day. Has been in treatment numerous times and has had 8 DUI's in the past. He reports a hx of WD but no complicated WD. [facility] Patient Stated Medical History Angina Yes Congestive Heart Failure Yes Hypertension Yes Other Cardiology Yes: enlarged heart Gastroesophageal Reflux Yes Disease Surgical History: None - Social History Smoking status: Current every day smoker Substance use type: former substance user Alcohol intake frequency: 3 or more drinks per day Current residence: Apartment/Private Home Review of Systems - EENMT Ears: Absent: tinnitus Balance: Absent: vertigo Mouth/Throat: Absent: sore throat - Cardiovascular Rhythm: Present: regular rhythm Vascular: Present: pedal edema (+2 -3 ) Mental Status Exam Vitals: Last Vital Signs Temp 98.6 F 11/05/16 16:01 Pulse 90 11/05/16 16:01 Resp 45 H 11/05/16 16:01 BP 134/74 11/05/16 16:01 Pulse Ox 97 11/05/16 17:47 Height: 1.75 m Weight: 102.4 kg - Mental Status Exam Muscle Strength/Tone: Weak Dressing: Casual Grooming: Poor Attitude: Guarded Motor Activity: Retardation Eye Contact: Poor Speech: Slowed Volume: Soft Rhythm: Slurred Orientation: Oriented X4 Mood: Depressed Affect: Hostile Rate of Thoughts: Delayed Thought Organization: [employer] Associations: Flight [employer] Thought Content: Hopelessness, Somatic Concerns Perception/Psychotic: Psychotic Current Hallucinations: Visual Language: Naming Impaired Fund of Knowledge: Poor fund of knowledge Memory: Poor-immediate Suicidal Ideation: None Homicidal Ideation: None Insight: Poor Judgement: Poor Impulse Control: Poor - Laboratory Result Diagrams: 11/04/16 05:11 11/05/16 04:33 Laboratory Results - last 24 hr 11/05/16 11/05/16 04:33 10:35 ABG pH 7.370 ABG pCO2 72 H* ABG pO2 84 ABG HCO3 42 H ABG Total CO2 43.8 H ABG O2 Saturation 96.0 ABG Base Excess 13.3 H O2 Delivery Method Nasal cannula, liter FiO2 (liters per min) 6 Turbidity < 20 Sodium 137 Potassium 3.9 Chloride 91 L Carbon Dioxide 39 H Anion Gap 7 BUN 21.0 H Creatinine 0.9 GFR Calculation 88 BUN/Creatinine Ratio 23 Glucose 122 H Calculated Osmolality 268 Calcium 9.2 Icterus Index < 2 Specimen Hemolysis < 15 Assessment and Plan (1) Alcohol withdrawal delirium Problem details: Possible. PT having VH at times. Current visit: Yes Status: Acute Continue medical management. Would consider stopping Serax and use Ativan to manage both detox and anxiety. Will give a one time dose of Zyprexa 5mg to target agitation. Will order Haldol 0.5mg IV Q 6 PRN agitation. Would not let pt leave AMA at this point he does not have the capacity to make his own decisions. (2) Alcohol use disorder, severe, dependence Current visit: Yes Status: Acute
[2016-11-05] MEDS ORDERED: HALOPERIDOL 5 MG/ML INJECTION IVP PRN (20:12)
[2016-11-05] MEDS ORDERED: OLANZapine 5 MG TABLET PO ONE (20:20)
[2016-11-06] MEDS: OXAZEPAM 15 MG CAPSULE PO SCH ×2 (03:00→11:31)
[2016-11-06] MEDS: PANTOPRAZOLE 20 MG TABLET PO SCH (06:31)
[2016-11-06] MEDS: HYDRALAZINE 20 MG/ML INJECTION IVP PRN ×2 (06:49→11:12)
[2016-11-06] MEDS: ALBUTEROL/IPRATROPIUM 2.5mg-0.5mg/3ml NEB AEROSOL SCH ×4 (07:30→19:38)
--- NOTE | 2016-11-06 08:14 | Pulmonology Consult Note ---
History of Present Illness Consult date: 11/06/16 Reason for consult: other (DT's, respiratory failure) History of present illness: HPI: I am seeing this patient who presented with chest pain and shortness of breath. He has developed severe alcohol withdrawal and delirium tremens. He has acute and chronic respiratory failure with hypercapnia. He is severely agitated and the nursing staff is having a difficult time managing his care. He insisted on leaving [facility] to go smoke last night. The patient has been prescribed BIPAP but is not wearing it due to intolerance. Psychiatry has been consulted. He is being managed on Ativan, Seroquel and Zyprexa. He is not able to give adequate history at this time. Patient is a 51-year-old white male who has no PCP. He presented to the emergency room with complaints of severe shortness of air and chest pain (10/29) . Patient reports that he was diagnosed with congestive heart failure 15 days ago while hospitalized in [place], but he left the hospital AM after staying approximately 24 hours to get back to [place] where his sister lives. Patient states he's had these symptoms since that hospitalization. When he presented to the ED he was quite dyspneic and speaking in 3 word sentences. His room air sats were 86-88%. After he was placed on 3 L of oxygen, his saturations improved to greater than 93% and he reported significant improvement in his shortness of breath. He was given 2 sublingual nitroglycerin and topical nitrogen was applied. Following the oxygen and nitroglycerin, his chest pain resolved. He also received aspirin, a dose of Lasix 40 IV, and lisinopril 20 mg by mouth. He had a DuoNeb treatment in the emergency department for his wheezes/ crackles. He is not aware of a COPD diagnosis, however he does not have routine healthcare. He is a 3 pack per day smoker. Nicotine patch was applied in the emergency room. His initial troponin and d-dimer were negative. His BNP was 2390. CBC and CMP were essentially negative. Alcohol level was less than 10, although patient states he has had 4 drinks today. Chest x-ray showed significant cardiomegaly. EKG showed sinus tach with no acute ST changes. Following initial workup in the ED, patient was admitted to the hospitalist service (Dr. Parker attending) for further workup, treatment and observation. Patient was brought to the floor on 3 L of oxygen per nasal cannula in stable condition. He was seen in his hospital room. His sister is with him. He has no current complaints. States "I just need to get back to work." He is agreeable to seeing Dr. Marie in consultation. Review of Systems Comprehensive ROS: completed and no additional positive findings except those as stated - EENMT EENMT Comments: has a "lazy eye" on the left. Chronic. - Cardiovascular Cardiovascular: Present: edema - Respiratory Respiratory: Present: cough (chronic), wheezing - Gastrointestinal Gastrointestinal: Present: hematochezia (1.5 wks ago had "a decent amount" of bright red blood in toilet and on TP. Not constipated. Wasn't straining with BM. Has blood "at times.") Gastrointestinal Comments: BMs are normal. Last one was yesterday. - Integumentary/Breasts Integumentary: Present: rash (on b/l lower legs where his "boots rub") - Neurological Neurological: Present: headache(s) (this am. Resolved with TYlenol) PFSH Congestive heart failure Hypertension Hepatitis C Chronic tobacco use Chronic alcohol use Presumed COPD GERD diverticulosis Hospitalized at [facility] many years ago due to diverticulitis. Hospitalized in [place], [place] 2 weeks ago for chest pain/CHF - left AMA Surgical History: None Family History: Father at age 72 of an [place]. Also had COPD. Smoker. Mother at age 56 of an [place]. She had schizophrenia. She also had COPD and was a smoker. Sister at age 42 of hepatitis C/liver disease. Alcoholic. - Social History Smoking status: Current every day smoker (has tried to quit using Chantix. Had to DC due to vivid dreams.) packs per day: 3 (has smoked since age 12) Substance use type: does not use, former substance user (when much younger) Alcohol intake: current Alcohol intake frequency: other (states his intake is variable. States on days he works, he immediately starts drinking after work and will drink 15-20 beers and 15 shots of liquor. States on days he doesn't work he will start drinking as soon as he wakes up and drink all day long. By the end of his workday he will start to have withdrawal symptoms. States he has drank since he was a teenager.) Last drink: hours (ago) (at 12 PM today) Housing: other (has a home in [place], but his mailing address is his sister's address in [place]) Household members: none Current occupational status: employed Current occupation: works for the [employer] Social history: Never . Has one son who works on the [employer] and lives in [place]. Patient has no PCP Review of Systems ROS unobtainable: due to mental status All systems: reviewed and no additional remarkable complaints except as stated PFSH Patient Stated Medical History Angina Yes Congestive Heart Failure Yes Hypertension Yes Other Cardiology Yes: enlarged heart Gastroesophageal Reflux Yes Disease Surgical History: None - Social History Smoking status: Current every day smoker Current residence: Apartment/Private Home Medications Home Medications Medication Instructions Recorded Confirmed Type Acetaminophen [Acetaminophen Extra 1,000 mg PO Q6H PRN 11/02/16 11/02/16 History Strength] Allergies Allergy/AdvReac Type Severity Reaction Status Date / Time No Known Allergies Allergy Verified 11/02/16 12:59 Exam Vital signs: Temperature 97.8 F 11/05/16 20:00 Pulse Rate 108 H 11/06/16 05:01 Respiratory Rate 31 H 11/06/16 07:30 Blood Pressure 175/110 H 11/06/16 05:01 Pulse Oximetry 100 11/06/16 07:30 Oxygen Delivery Method High Flow Nasal Cannula Oxygen Flow Rate 4 Fraction of Inspired Oxygen 45 SaO2/FiO2 Ratio 225 - Constitutional mild distress, morbidly obese, agitated - Routine HEENT Exam Head: Present: normocephalic, atraumatic Nose: moist mucous membranes - Routine Neck Exam Present: supple, full ROM - Routine Respiratory Exam Present: accessory muscle use, prolonged expiratory phase, wheezes - Routine Cardiovascular Exam Present: RRR, S1, S2, tachycardia - Routine Abdominal Exam Present: soft, distended - Routine Extremities Exam Absent: cyanosis, clubbing - Routine Skin Exam Present: intact, erythema, warm - Routine Neurological Exam Present: sensory deficit - Routine Psychiatric Exam Present: anxious, agitated. Absent: normal thought process, cooperative, good insight, good judgment Results - Laboratory Findings CBC and BMP: 11/06/16 05:18 11/06/16 05:18 ABG ABG pH 7.370 (7.350-7.450) 11/05/16 10:35 ABG pCO2 72 MMHG (34-45) H* 11/05/16 10:35 ABG pO2 84 MMHG (80-100) 11/05/16 10:35 ABG O2 Saturation 96.0 % (95.0-98.0) 11/05/16 10:35 PT/INR, D-dimer INR 1.31 (0.99-1.21) H 11/04/16 05:11 D-Dimer < 150 NG/ML (0-230) 11/02/16 12:53 Abnormal lab findings: Abnormal Labs 11/03/16 11/03/16 11/04/16 03:19 03:19 05:11 MCV 100.7 H Lymph % (Auto) [place] % (Auto) 19.2 H Eos % (Auto) 6.5 H [place] # 1.1 H INR ABG pCO2 ABG HCO3 ABG Total CO2 ABG Base Excess VBG pCO2 VBG pO2 VBG HCO3 VBG Base Excess Chloride 97 L Carbon Dioxide BUN Glucose 122 H Phosphorus 5.4 H HDL Cholesterol 39 L 11/04/16 11/04/16 11/05/16 05:11 05:11 04:33 MCV Lymph % (Auto) [place] % (Auto) Eos % (Auto) [place] # INR 1.31 H ABG pCO2 ABG HCO3 ABG Total CO2 ABG Base Excess VBG pCO2 VBG pO2 VBG HCO3 VBG Base Excess Chloride 93 L 91 L Carbon Dioxide 37 H 39 H BUN 21.0 H 21.0 H Glucose 122 H Phosphorus HDL Cholesterol 11/05/16 11/06/16 11/06/16 10:35 05:18 05:18 MCV 101.7 H Lymph % (Auto) 20.2 L [place] % (Auto) 12.8 H Eos % (Auto) 4.7 H [place] # INR ABG pCO2 72 H* ABG HCO3 42 H ABG Total CO2 43.8 H ABG Base Excess 13.3 H VBG pCO2 VBG pO2 VBG HCO3 VBG Base Excess Chloride 92 L Carbon Dioxide 39 H BUN Glucose Phosphorus HDL Cholesterol 11/06/16 05:18 MCV Lymph % (Auto) [place] % (Auto) Eos % (Auto) [place] # INR ABG pCO2 ABG HCO3 ABG Total CO2 ABG Base Excess VBG pCO2 92 H VBG pO2 25 L VBG HCO3 46 H VBG Base Excess 15.9 H Chloride Carbon Dioxide BUN Glucose Phosphorus HDL Cholesterol - Diagnostic Findings Chest x-ray: report reviewed, image reviewed (11/05/16) Assessment and Plan (1) Acute and chronic respiratory failure with hypercapnia Current visit: Yes Status: Acute Agree with bipap. Full face mask is ideal. O2 to keep sat >90%. I recommend using BIpap at night and with sleep. He can be off for periods as tolerated (2) Delirium tremens Current visit: Yes Status: Acute Hospitalist and Pyschiatry managing. If agitation becomes more severe I would consider IV Precedex to help with compliance with BIPAP. If things worsen, intubation and sedation may be needed. (3) COPD exacerbation Current visit: Yes Status: Acute Recommend Neb treatments with albuterol and ipratropium bromide q4H. Systemic corticosteroids (IV solumedrol) would be appropriate for his exacerbation and severe wheeze. Antibiotics not indicated at this time. Smoking cessation encouraged.
[2016-11-06] MEDS: NICOTINE 21 MG PATCH TD SCH (08:26)
[2016-11-06] MEDS: NICOTINE PATCH REMOVAL TD SCH (08:27)
[2016-11-06] MEDS: ENOXAPARIN 40 MG/0.4 ML INJECTION SQ SCH (08:27)
--- NOTE | 2016-11-06 08:44 | XRay Report ---
Indication: hypoxia PROCEDURE: XR chest 1V: Encounter: Initial Comparison: November 05, 2016 Findings: Chest appears stable allowing for differences in technique. No new consolidation, pleural effusion or pneumothorax. Cardiac silhouette remains enlarged. Mediastinal contours are stable. Pulmonary vascularity is unchanged. Impression: Stable appearance of the chest. .
--- NOTE | 2016-11-06 11:10 | Progress Note ---
Subjective: Events of last night discussed with the evening nurse earlier this morning. The patient became very agitated while the psychiatrist was here seeing him. He was given a one-time dose of Zyprexa. Then overnight he became very belligerent and left the hospital AGAINST MEDICAL ADVICE and smoked just outside of the hospital doors. He had a difficult time smoking because he was coughing and short of breath on room air. He was brought back into the CCU and was noted to be hypoxic and required placement of BiPAP. He has been on BiPAP intermittently but when he is less somnolent he removes it. He has broken multiple BiPAP masks his hospitalization. This morning he is too somnolent to answer questions but is not allowing placement of BiPAP mask. Objective Vital signs: Temperature 98.1 F 11/06/16 07:15 Pulse Rate 108 H 11/06/16 08:30 Respiratory Rate 30 H 11/06/16 10:28 Blood Pressure 191/103 H 11/06/16 08:00 Pulse Oximetry 97 11/06/16 10:28 Oxygen Delivery Method High Flow Nasal Cannula Oxygen Flow Rate 4 Fraction of Inspired Oxygen 45 SaO2/FiO2 Ratio 225 Height/Weight/BMI: Height 1.75 m Weight 104.6 kg Body Mass Index 35.9 Comments: GEN-somnolent, pulse at BiPAP mask when attempted to place, moves all 4 extremities NECK-supple CV-borderline tachycardic rate CHEST-wheezing throughout ABD-soft, nontender, obese, positive bowel sounds -Alex in place with good urine output EXT-no edema NEURO-moves all 4 extremities, somnolent and confused SKIN-warm and dry Results - Labs CBC & Chem 7: 11/06/16 05:18 11/06/16 05:18 - ABG Interpretation ABG results: 11/05/16 11/06/16 10:35 05:18 ABG pH 7.370 ABG pCO2 72 H* ABG pO2 84 ABG HCO3 42 H ABG Total CO2 43.8 H ABG O2 Saturation 96.0 ABG Base Excess 13.3 H VBG pH 7.310 VBG pCO2 92 H VBG pO2 25 L VBG HCO3 46 H VBG Total CO2 49.1 VBG O2 Saturation 39.0 VBG Base Excess 15.9 H - Imaging and Cardiology Chest x-ray Additional comments: Chest x-ray on my view and per radiology shows stable appearance of the chest. He has cardiomegaly but no significant pulmonary edema or infiltrates. Assessment and Plan (1) Chest pain Current visit: Yes Status: Acute (2) Hypertensive urgency Current visit: Yes Status: Acute (3) Congestive heart failure Problem details: Acute/chronic Systolic; global hypokinesia with ejection fraction 40-45% by echo Current visit: Yes Status: Acute (4) Pulmonary edema cardiac cause Current visit: Yes Status: Acute Assessment and Plan: 11/06/2016-Dr. Valdes Assessment: CHF (EF 40-45% -possible alcoholic cardiomyopathy) with flash pulmonary edema- clinical stage IV CHF-EF appeared improved on heart catheter yesterday Hypertensive emergency/urgency-patient to somnolent to take oral meds this morning. We'll give IV hydralazine Chest pain/shortness of air-likely related to cardiomyopathy and acute heart failure-heart catheter showed moderate disease not requiring stent Chronic alcohol use with withdrawal-Dr. Benjamin's consult appreciated. Acute on probable chronic hypoxic and hypercapnic respiratory failure- Hepatitis C GERD COPD exacerbation diagnosis Chronic tobacco use Depression Diverticulosis Hematochezia Obesity-BMI 34.9 Tobaccoism Plan: Regarding pulmonary edema, the patient has diuresed well and is now on oral Lasix. Chest x-ray is improving. Continue BiPAP as tolerated. Regarding COPD and CO2 retention-we'll start IV steroids as recommended by Dr. Castillo. Continue breathing treatments. BiPAP as tolerated. Regarding cardiomegaly and CHF, heart catheterization yesterday showing moderate disease Regarding Hypertensive emergency, the patient is off of nicardipine drip but may need to restart if unable to take oral meds.. Oral meds (amlodipine, lisinopril and carvedilol) not given this morning due to somnolence. We'll continue With as needed hydralazine. Stop Serax and give Ativan for withdrawal and anxiety. When necessary Haldol for agitation. Continue nicotine patch for tobacco addiction. Increase activity as tolerated. Repeat CBC and basic metabolic profile tomorrow. Continue thiamine and folate regarding alcoholism Greater than 45 minutes of critical care time spent seeing and evaluating the patient today. Sepsis Assessment - Evaluation Sepsis screening result: No Definite Risk Hospital Course Summary Disclaimer: The visit summary below is not to be considered part of the above Progress Note. Hospital Course: 11/02/16 Patient presents with clinical stage IV CHF; likely systolic failure and possibly alcoholic cardiomyopathy although dramatically elevated blood pressures on admission may indicate diastolic dysfunction. Treatment has been initiated acutely with Lasix, carvedilol, lisinopril, and aspirin. Echocardiogram ordered and Dr. Marie consulted. Serial troponins being obtained. Patient may well have underlying coronary disease given long tobacco history. Lipids to be obtained. Patient is at high risk for alcohol withdrawal and indicates he becomes symptomatic by the end of the workday. Serax initiated at 4 times a day dosing to minimize withdrawal symptoms and lorazepam available as needed. 11/03/16 16:17 Developed flash pulmonary edema with associated hypertension overnight. Blood pressure and oxygenation improved with BiPAP. Remains on BiPAP today except brief period soft for meals and interactive with caregivers/family. Diuresing well, blood pressure improving. Amlodipine added earlier today, lisinopril increased to 40 mg daily per cardiology, carvedilol at 6.25 twice a day. Nicardipine drip currently off-resume if needed for sustained systolics greater than 170. Hydralazine when necessary available if needed. Ejection fraction 40-45%, likely alcoholic cardiomyopathy. Discussed with Dr. Marie-anticipate cardiac catheterization in the future. Chest pain reported today does not sound high risk for cardiac event, troponins unremarkable and EKGs without acute changes. Patient remains at high risk for alcohol withdrawal symptomatology and DTs, continue scheduled Serax and lorazepam for breakthrough withdrawal symptoms. Nicotine patch for chronic tobacco abuse. 11/03/16 Cardiology (1) Chest pain: Trop neg x2 and ECG shows no acute ischemia. Chest pain relieved with Ntg. but his BP was 200's and he had CHF exacerbation which is likely the cause of his chest pain. Will need further cardiac workup as his heart failure warrants. with stress test in the future as an out pt. (2) Congestive heart failure: Echo to evaluate structure and function of heart and to determine type of CHF. Received Lasix 40 mg IV x2 yesterday for U/O 2100 ml last night. Cont Lasix IV daily. Agree with Coreg 6.25mg BID and lisinopril 20mg daily. Monitor I/O, Wts, lytes and renal function. Will need CHF instructions. (3) Hypertensive urgency: BP improved with Ntg, at first cont Coreg and lisinopril. (4) Tobacco abuse: Advised cessation. Nicotine patch on. (5) Alcohol abuse: Receiving Serax and vitamins. He has had recent bloody stool. (6) Hepatitis C 11/04/16 14:34 Plan left heart cath tomorrow. Increase Coreg 11/05/2016-Dr. Valdes Assessment: CHF (EF 40-45% -possible alcoholic cardiomyopathy) with flash pulmonary edema- clinical stage IV CHF Hypertensive emergency/urgency Chest pain/shortness of air-likely related to cardiomyopathy and acute heart failure Chronic alcohol use with withdrawal Acute on probable chronic hypoxic and hypercapnic respiratory failure Hepatitis C GERD Presumed COPD/consider COPD exacerbation diagnosis Chronic tobacco use Depression Diverticulosis Hematochezia Obesity-BMI 34.9 Plan: Regarding pulmonary edema, the patient is diuresing well and is now on oral Lasix. Chest x-ray is improving. Continue BiPAP as tolerated. Regarding COPD and CO2 retention, continue breathing treatments. Consider steroids. Regarding cardiomegaly and CHF, heart catheterization per Dr. Marie when patient will tolerate lying flat for procedure Regarding Hypertensive emergency, the patient is off of nicardipine drip. He continues on amlodipine, lisinopril and carvedilol with as needed hydralazine available. Continue Serax and when necessary lorazepam for alcohol withdrawal Psychiatry consultation regarding alcoholism, possible depression versus bipolar versus other, competency to make medical decisions. Discussed with the additions, social science analyst for psychiatry. Continue nicotine patch for tobacco addiction. Increase activity as tolerated. Repeat CBC and basic metabolic profile tomorrow. Continue thiamine and folate regarding alcoholism Greater than 45 minutes of critical care time spent seeing and evaluating the patient today.
[2016-11-06] MEDS: CARVEDILOL 12.5 MG TABLET PO SCH ×3 (11:31→19:53)
[2016-11-06] MEDS: FUROSEMIDE 80 MG TABLET PO SCH ×3 (11:31→19:53)
[2016-11-06] MEDS: AMLODIPINE 5 MG TABLET PO SCH (11:31)
[2016-11-06] MEDS: LISINOPRIL 40 MG TABLET PO SCH (11:31)
[2016-11-06] MEDS: FOLIC ACID 1 MG TABLET PO SCH (11:32)
[2016-11-06] MEDS: ASPIRIN *EC* 81 MG TABLET PO SCH (11:32)
[2016-11-06] MEDS: LORazepam 1 MG TABLET PO SCH ×3 (12:03→19:53)
[2016-11-06] MEDS: METHYLPREDNISOLONE SOD SUCC 125mg/2ml INJECTION IVP SCH ×2 (12:45→19:54)
--- NOTE | 2016-11-06 14:37 | Cardiology Progress Note ---
Subjective Principal diagnosis: Chest pain, SOB <Estrellita Campbell L - 11/06/16 14:52> Interval history: CC: Chest pain, CAD, CHF, hypertensive crisis Solomon is seen in his room in CCU. He is on O2 NC after requiring bipap through the night after leaving AMA to go smoke and becoming hypoxic. He has a forceful , productive cough. RN reports he took his PO antihypertensive meds at 1100, he received a prn dose of hydralazine this AM 2/2 somnolence and inability to take oral meds. RN reports he denies further chest pain. <Estrellita Campbell L - 11/06/16 14:52> Exam Vital signs: Temperature 96.2 F L 11/09/16 11:59 Pulse Rate 80 11/09/16 11:59 Respiratory Rate 15 11/09/16 13:00 Blood Pressure 136/95 H 11/09/16 11:59 Pulse Oximetry 89 L 11/09/16 13:10 Oxygen Delivery Method Room Air Oxygen Flow Rate 2 Fraction of Inspired Oxygen 40 SaO2/FiO2 Ratio 225 <Manuel Marie - 11/09/16 13:33> Temperature 98.1 F 11/06/16 07:15 Pulse Rate 85 11/06/16 12:45 Respiratory Rate 30 H 11/06/16 12:45 Blood Pressure 161/75 H 11/06/16 12:00 Pulse Oximetry 100 11/06/16 12:56 Oxygen Delivery Method High Flow Nasal Cannula Oxygen Flow Rate 4 Fraction of Inspired Oxygen 45 SaO2/FiO2 Ratio 225 <Javi Campbellca L - 11/06/16 14:52> - Constitutional no acute distress, obese <Javi Campbellca L - 11/06/16 14:52> - Routine HEENT Exam Head: Present: normocephalic <Javi Campbellca L - 11/06/16 14:52> - Routine Neck Exam Absent: JVD, carotid bruit <Javi Campbellca L - 11/06/16 14:52> - Routine Respiratory Exam Present: rhonchi <Javi Campbellca L - 11/06/16 14:52> - Routine Cardiovascular Exam Present: no murmur. Absent: JVD <Javi Campbellca L - 11/06/16 14:52> - Routine Abdominal Exam Present: distended <GinnynliEstrellita L - 11/06/16 14:52> - Routine Skin Exam Present: intact <GinnynliEstrellita L - 11/06/16 14:52> - Routine Psychiatric Exam Present: cooperative <GinnynliEstrellita L - 11/06/16 14:52> - Urinary Catheter Management Coude Cath placed during this visit: no <Louie Mariesein - 11/09/16 13:33> yes <GinnynliEstrellita L - 11/06/16 21:34> Urethral indwelling: Yes <Ginnynli,Estrellita L - 11/06/16 21:34> Reason for continuing: Accurate I&O/Aggressive Diuresis <GinnynliEstrellita L - 21:34> Insertion date: 11/06/16 <Ginnynli,Estrellita L - 11/06/16 14:52> Insertion time: 03:30 <Ginnynli,Estrellita L - 11/06/16 14:52> Urethral Cath placed during this visit: no <Louie Mariesein - 11/09/16 13:33> yes, but has since been removed by the nurse <ManueliEstrellita L - 11/06/16 21:34> Urethral indwelling: Yes <Ginnynli,Estrellita L - 11/06/16 14:52> Insertion date: 11/03/16 <Ginnynli,Estrellita L - 11/06/16 14:52> Insertion time: 03:30 <Ginnynli,Estrellita L - 11/06/16 14:52> Removal date: 11/06/16 <Wernli,Estrellita L - 11/06/16 14:52> Removal time: 03:00 <Ginnynli,Estrellita L - 11/06/16 14:52> Progress Note-A&P (1) Chest pain Status: Acute Current Visit: No (2) Hypertensive urgency Status: Acute Current Visit: No (3) Congestive heart failure Problem details: Acute/chronic Systolic; global hypokinesia with ejection fraction 40-45% by echo Status: Acute Current Visit: Yes (4) Tobacco abuse Status: Chronic Current Visit: Yes (5) Alcohol abuse Status: Chronic Current Visit: Yes (6) Hepatitis C Status: Acute Current Visit: Yes (7) Cardiomyopathy Problem details: EF 40-45% Status: Acute Current Visit: Yes (8) CAD (coronary artery disease) Status: Acute Current Visit: Yes <Manuel Marie - 11/09/16 13:33> (1) Chest pain Status: Acute Current Visit: Yes (2) Hypertensive urgency Status: Acute Current Visit: Yes (3) Congestive heart failure Problem details: Acute/chronic Systolic; global hypokinesia with ejection fraction 40-45% by echo Status: Acute Current Visit: Yes (4) Tobacco abuse Status: Chronic Current Visit: Yes (5) Alcohol abuse Status: Chronic Current Visit: Yes (6) Hepatitis C Status: Acute Current Visit: Yes (7) Cardiomyopathy Problem details: EF 40-45% Status: Acute Assessment and plan: 11/06/16: No further chest pain, troponin negative, cardiac cath showed diffuse nonobstructive CAD, no stenting indicated. Continue diuresis with 80mg lasix bid. Continue Coreg 12.5mg bid, consider increasing to 25mg bid as tolerated to maximize LV dysfunction therapy. BP well controlled on current oral meds when he is able to take them. Current Visit: Yes (8) CAD (coronary artery disease) Status: Acute Assessment and plan: Diffuse moderate CAD, no high grade stenosis on cardiac cath. ASA 81mg daily, initiate lipitor 40mg daily. Current Visit: Yes <Estrellita Campbell - 11/06/16 21:32> - Time Spent With Patient Total time spent is greater than 50% in coordination of care (as documented) at patient's floor/unit and/or counseling patient: <Manuel Marie - 11/09/16 13:33> Total time spent is greater than 50% in coordination of care (as documented) at patient's floor/unit and/or counseling patient: <Estrellita Campbell - 11/06/16 14:52> less than 15 minutes <Estrellita Campbell L - 11/06/16 21:34> - Attestation Attestation Narrative: Recommendation After examining the patient I agree with the above assessment. I am involved in the formulation of the patient's plan of care. <Manuel Marie - 11/09/16 13:33> Sepsis Assessment - Evaluation Sepsis screening result: No Definite Risk <Estrellita Campbell - 11/06/16 14:52> Hospital Course Summary Disclaimer: The visit summary below is not to be considered part of the above Progress Note. <Manuel Marie - 11/09/16 13:33> The visit summary below is not to be considered part of the above Progress Note. <Estrellita Campbell - 11/06/16 14:52>
[2016-11-07] MEDS: LORazepam 1 MG TABLET PO SCH ×6 (00:54→23:25)
[2016-11-07] MEDS: METHYLPREDNISOLONE SOD SUCC 125mg/2ml INJECTION IVP SCH ×3 (04:25→18:34)
[2016-11-07] MEDS: PANTOPRAZOLE 20 MG TABLET PO SCH ×2 (06:26→07:40)
[2016-11-07] MEDS: ALBUTEROL/IPRATROPIUM 2.5mg-0.5mg/3ml NEB AEROSOL SCH ×4 (06:43→20:02)
[2016-11-07] MEDS: FOLIC ACID 1 MG TABLET PO SCH (08:46)
[2016-11-07] MEDS: CARVEDILOL 12.5 MG TABLET PO SCH (08:46)
[2016-11-07] MEDS: FUROSEMIDE 80 MG TABLET PO SCH ×2 (08:47→16:29)
[2016-11-07] MEDS: LISINOPRIL 40 MG TABLET PO SCH (08:47)
[2016-11-07] MEDS: AMLODIPINE 5 MG TABLET PO SCH (08:47)
[2016-11-07] MEDS: NICOTINE 21 MG PATCH TD SCH (08:48)
[2016-11-07] MEDS: ASPIRIN *EC* 81 MG TABLET PO SCH (08:54)
[2016-11-07] MEDS: NICOTINE PATCH REMOVAL TD SCH (08:55)
[2016-11-07] MEDS: ENOXAPARIN 40 MG/0.4 ML INJECTION SQ SCH (08:55)
--- NOTE | 2016-11-07 09:03 | Progress Note ---
Subjective: The patient was seen this morning accompanied by his sister. He is much more alert and responsive this morning. He is sitting up in bed and conversant. He is on 4 L of oxygen. He did have a drop in O2 sats last night down into the 60s requiring BiPAP which he tolerated for about 3-1/2 or 4 hours. He denies pain anywhere. He denies shortness of breath. He specifically denies headache or chest pain. He denies any nausea. He states he is hungry. He has a Alex catheter in place. He denies difficulties with urination prior to admission. He is concerned about what medications he will be placed on when he goes home and wants to make sure he is able to afford them. He states he has been in rehabilitation 9 times for alcoholism. He is reluctant to go again. He thinks he can drink in moderation after discharge. I strongly urged him to not drink any alcohol at all which will make it very difficult to control his medical issues. Objective Vital signs: Temperature 98.7 F 11/07/16 08:00 Pulse Rate 84 11/07/16 06:24 Respiratory Rate 23 11/07/16 06:45 Blood Pressure 157/95 H 11/07/16 04:00 Pulse Oximetry 98 11/07/16 06:45 Oxygen Delivery Method BiPAP Oxygen Flow Rate 4 Fraction of Inspired Oxygen 40 SaO2/FiO2 Ratio 225 Height/Weight/BMI: Height 1.75 m Weight 103.6 kg Body Mass Index 35.9 Comments: Blood pressure is elevated this morning at 200/110, O2 sat is 98% on 4 L, heart rate is 96, he is afebrile GEN-alert, oriented 3, no acute distress. He looks the best that I've seen him this hospitalization. HEENT-sclera anicteric, pupils are equal, oropharynx is moist NECK-supple CV-regular rate and rhythm CHEST-wheezing bilaterally in all lung hoover ABD-soft, nontender, nondistended with positive bowel sounds -Alex in place EXT-no edema NEURO-oriented, alert, moves all 4 extremities SKIN-warm and dry and without rashes Results - Labs CBC & Chem 7: 11/07/16 04:30 11/07/16 04:30 - ABG Interpretation ABG results: 11/05/16 11/06/16 10:35 05:18 ABG pH 7.370 ABG pCO2 72 H* ABG pO2 84 ABG HCO3 42 H ABG Total CO2 43.8 H ABG O2 Saturation 96.0 ABG Base Excess 13.3 H VBG pH 7.310 VBG pCO2 92 H VBG pO2 25 L VBG HCO3 46 H VBG Total CO2 49.1 VBG O2 Saturation 39.0 VBG Base Excess 15.9 H Assessment and Plan (1) Chest pain Current visit: Yes Status: Acute (2) Hypertensive urgency Current visit: Yes Status: Acute (3) Congestive heart failure Problem details: Acute/chronic Systolic; global hypokinesia with ejection fraction 40-45% by echo Current visit: Yes Status: Acute (4) Pulmonary edema cardiac cause Current visit: Yes Status: Acute Assessment and Plan: 11/07/2016-Dr. Valdes Assessment: CHF (EF 40-45% -possible alcoholic cardiomyopathy) with flash pulmonary edema- clinical stage IV CHF-EF appeared improved on heart catheter Hypertensive emergency/urgency-blood pressure fairly well-controlled overnight but markedly elevated this morning. Give oral medications now and if not improving may need to give IV hydralazine and increase Coreg dose. Chest pain/shortness of air-likely related to cardiomyopathy and acute heart failure-heart catheter showed moderate disease not requiring stent Chronic alcohol use with withdrawal-encephalopathy has improved with Ativan Acute on probable chronic hypoxic and hypercapnic respiratory failure- COPD exacerbation diagnosis Depression Diverticulosis Hematochezia Obesity-BMI 34.9 Tobaccoism Hepatitis C GERD Plan: Regarding pulmonary edema, the patient has diuresed well Regarding COPD and CO2 retention-improving. Continue steroids. Continue breathing treatments. BiPAP as needed. Regarding cardiomegaly and CHF, heart catheterization showing moderate disease Regarding Hypertensive emergency, blood pressure was better controlled until this morning. Oral meds are amlodipine, lisinopril and carvedilol-May need to increase carvedilol dose if blood pressure not improved after this morning's meds. May need IV hydralazine Continue Ativan for withdrawal and anxiety. When necessary Haldol for agitation. Continue nicotine patch for tobacco addiction. Increase activity as tolerated-consult PT and OT today. CORTNEY Alex Repeat CBC, magnesium and renal profile tomorrow. Continue thiamine and folate regarding alcoholism Greater than 40 minutes of critical care time spent seeing and evaluating the patient today. Discussed with the patient's nurse, patient and family. Patient is still requiring intermittent IV Ativan for agitation. With uncontrolled high blood pressure and recent severe hypoxia requiring initiation of BiPAP overnight, I feel the patient still requires monitoring in CCU. Sepsis Assessment - Evaluation Sepsis screening result: No Definite Risk Hospital Course Summary Disclaimer: The visit summary below is not to be considered part of the above Progress Note. Hospital Course: 11/02/16 Patient presents with clinical stage IV CHF; likely systolic failure and possibly alcoholic cardiomyopathy although dramatically elevated blood pressures on admission may indicate diastolic dysfunction. Treatment has been initiated acutely with Lasix, carvedilol, lisinopril, and aspirin. Echocardiogram ordered and Dr. Marie consulted. Serial troponins being obtained. Patient may well have underlying coronary disease given long tobacco history. Lipids to be obtained. Patient is at high risk for alcohol withdrawal and indicates he becomes symptomatic by the end of the workday. Serax initiated at 4 times a day dosing to minimize withdrawal symptoms and lorazepam available as needed. 11/03/16 16:17 Developed flash pulmonary edema with associated hypertension overnight. Blood pressure and oxygenation improved with BiPAP. Remains on BiPAP today except brief period soft for meals and interactive with caregivers/family. Diuresing well, blood pressure improving. Amlodipine added earlier today, lisinopril increased to 40 mg daily per cardiology, carvedilol at 6.25 twice a day. Nicardipine drip currently off-resume if needed for sustained systolics greater than 170. Hydralazine when necessary available if needed. Ejection fraction 40-45%, likely alcoholic cardiomyopathy. Discussed with Dr. Marie-anticipate cardiac catheterization in the future. Chest pain reported today does not sound high risk for cardiac event, troponins unremarkable and EKGs without acute changes. Patient remains at high risk for alcohol withdrawal symptomatology and DTs, continue scheduled Serax and lorazepam for breakthrough withdrawal symptoms. Nicotine patch for chronic tobacco abuse. 11/03/16 Cardiology (1) Chest pain: Trop neg x2 and ECG shows no acute ischemia. Chest pain relieved with Ntg. but his BP was 200's and he had CHF exacerbation which is likely the cause of his chest pain. Will need further cardiac workup as his heart failure warrants. with stress test in the future as an out pt. (2) Congestive heart failure: Echo to evaluate structure and function of heart and to determine type of CHF. Received Lasix 40 mg IV x2 yesterday for U/O 2100 ml last night. Cont Lasix IV daily. Agree with Coreg 6.25mg BID and lisinopril 20mg daily. Monitor I/O, Wts, lytes and renal function. Will need CHF instructions. (3) Hypertensive urgency: BP improved with Ntg, at first cont Coreg and lisinopril. (4) Tobacco abuse: Advised cessation. Nicotine patch on. (5) Alcohol abuse: Receiving Serax and vitamins. He has had recent bloody stool. (6) Hepatitis C 11/04/16 14:34 Plan left heart cath tomorrow. Increase Coreg 11/05/2016-Dr. Valdes Assessment: CHF (EF 40-45% -possible alcoholic cardiomyopathy) with flash pulmonary edema- clinical stage IV CHF Hypertensive emergency/urgency Chest pain/shortness of air-likely related to cardiomyopathy and acute heart failure Chronic alcohol use with withdrawal Acute on probable chronic hypoxic and hypercapnic respiratory failure Hepatitis C GERD Presumed COPD/consider COPD exacerbation diagnosis Chronic tobacco use Depression Diverticulosis Hematochezia Obesity-BMI 34.9 Plan: Regarding pulmonary edema, the patient is diuresing well and is now on oral Lasix. Chest x-ray is improving. Continue BiPAP as tolerated. Regarding COPD and CO2 retention, continue breathing treatments. Consider steroids. Regarding cardiomegaly and CHF, heart catheterization per Dr. Marie when patient will tolerate lying flat for procedure Regarding Hypertensive emergency, the patient is off of nicardipine drip. He continues on amlodipine, lisinopril and carvedilol with as needed hydralazine available. Continue Serax and when necessary lorazepam for alcohol withdrawal Psychiatry consultation regarding alcoholism, possible depression versus bipolar versus other, competency to make medical decisions. Discussed with the additions, psych social worker for psychiatry. Continue nicotine patch for tobacco addiction. Increase activity as tolerated. Repeat CBC and basic metabolic profile tomorrow. Continue thiamine and folate regarding alcoholism Greater than 45 minutes of critical care time spent seeing and evaluating the patient today. 11/06/2016-Dr. Valdes Assessment: CHF (EF 40-45% -possible alcoholic cardiomyopathy) with flash pulmonary edema- clinical stage IV CHF-EF appeared improved on heart catheter yesterday Hypertensive emergency/urgency-patient to somnolent to take oral meds this morning. We'll give IV hydralazine Chest pain/shortness of air-likely related to cardiomyopathy and acute heart failure-heart catheter showed moderate disease not requiring stent Chronic alcohol use with withdrawal-Dr. Benjamin's consult appreciated. Acute on probable chronic hypoxic and hypercapnic respiratory failure- Hepatitis C GERD COPD exacerbation diagnosis Chronic tobacco use Depression Diverticulosis Hematochezia Obesity-BMI 34.9 Tobaccoism Plan: Regarding pulmonary edema, the patient has diuresed well and is now on oral Lasix. Chest x-ray is improving. Continue BiPAP as tolerated. Regarding COPD and CO2 retention-we'll start IV steroids as recommended by Dr. Castillo. Continue breathing treatments. BiPAP as tolerated. Regarding cardiomegaly and CHF, heart catheterization yesterday showing moderate disease Regarding Hypertensive emergency, the patient is off of nicardipine drip but may need to restart if unable to take oral meds.. Oral meds (amlodipine, lisinopril and carvedilol) not given this morning due to somnolence. We'll continue With as needed hydralazine. Stop Serax and give Ativan for withdrawal and anxiety. When necessary Haldol for agitation. Continue nicotine patch for tobacco addiction. Increase activity as tolerated. Repeat CBC and basic metabolic profile tomorrow. Continue thiamine and folate regarding alcoholism Greater than 45 minutes of critical care time spent seeing and evaluating the patient today.
[2016-11-07] MEDS: SALINE FLUSH 10ml SYRINGE IVF PRN ×4 (11:13→23:25)
[2016-11-07] MEDS: HYDRALAZINE 20 MG/ML INJECTION IVP PRN ×2 (11:17→19:51)
[2016-11-07] MEDS ORDERED: CARVEDILOL 12.5 MG TABLET PO ONE (11:30)
[2016-11-07] MEDS: CARVEDILOL 25 MG TABLET PO SCH (18:34)
[2016-11-08] MEDS: SALINE FLUSH 10ml SYRINGE IVF PRN ×3 (04:19→20:09)
[2016-11-08] MEDS: METHYLPREDNISOLONE SOD SUCC 125mg/2ml INJECTION IVP SCH (04:20)
[2016-11-08] MEDS: LORazepam 1 MG TABLET PO SCH ×4 (05:48→20:08)
[2016-11-08] MEDS: PANTOPRAZOLE 20 MG TABLET PO SCH (05:48)
[2016-11-08] MEDS: ALBUTEROL/IPRATROPIUM 2.5mg-0.5mg/3ml NEB AEROSOL SCH ×4 (07:05→19:46)
--- NOTE | 2016-11-08 10:13 | Progress Note ---
Subjective: The patient states he is feeling very well. He denies feeling confused. He denies any pain. He denies feeling short of breath. He does have a nonproductive cough. He feels a little bit anxious about whether or not he will be well enough to go back to work and if so how long it will take. He denies feeling tremulous. He denies any chest pain. He denies lightheadedness when he gets up to walk. No BM today or yesterday but the patient denies feeling constipated. He is urinating without difficulty after Alex removed yesterday. Objective Vital signs: Temperature 98.0 F 11/08/16 08:30 Pulse Rate 87 11/08/16 05:45 Respiratory Rate 14 11/08/16 07:06 Blood Pressure 154/87 H 11/08/16 03:50 Pulse Oximetry 95 11/08/16 07:06 Oxygen Delivery Method Room Air,Nasal Cannula Oxygen Flow Rate 5.5 Fraction of Inspired Oxygen 40 SaO2/FiO2 Ratio 225 Height/Weight/BMI: Height 1.75 m Weight 104.2 kg Body Mass Index 35.9 Comments: I&O yesterday is -1582 Weight today is up but his nurse states he has been eating a lot GEN-alert, oriented, no acute distress HEENT-sclera anicteric, oropharynx is moist NECK-supple CV-regular rate and rhythm CHEST-expiratory wheezes bilaterally, but less so than yesterday ABD-soft, obese, nontender with positive bowel sounds -no Alex EXT-no edema NEURO-no focal deficits, no tremulousness, no signs of confusion SKIN-warm and dry and without rashes Results - Labs CBC & Chem 7: 11/08/16 04:28 11/08/16 04:28 - ABG Interpretation ABG results: 11/05/16 11/06/16 10:35 05:18 ABG pH 7.370 ABG pCO2 72 H* ABG pO2 84 ABG HCO3 42 H ABG Total CO2 43.8 H ABG O2 Saturation 96.0 ABG Base Excess 13.3 H VBG pH 7.310 VBG pCO2 92 H VBG pO2 25 L VBG HCO3 46 H VBG Total CO2 49.1 VBG O2 Saturation 39.0 VBG Base Excess 15.9 H Assessment and Plan (1) Chest pain Current visit: Yes Status: Acute (2) Hypertensive urgency Current visit: Yes Status: Acute (3) Congestive heart failure Problem details: Acute/chronic Systolic; global hypokinesia with ejection fraction 40-45% by echo Current visit: Yes Status: Acute (4) Pulmonary edema cardiac cause Current visit: Yes Status: Acute Assessment and Plan: 11/08/2016-Dr. Valdes Assessment: CHF (EF 40-45% -possible alcoholic cardiomyopathy) with flash pulmonary edema- clinical stage IV CHF-EF appeared improved on heart catheter Hypertensive emergency/urgency-blood pressure -required IV hydralazine 1 last night. Blood pressure improved today with Coreg increase last night. Chest pain/shortness of air-likely related to cardiomyopathy and acute heart failure-heart catheter showed moderate disease not requiring stent Chronic alcohol use with withdrawal-encephalopathy has improved with Ativan Acute on probable chronic hypoxic and hypercapnic respiratory failure- COPD exacerbation diagnosis Depression Diverticulosis Hematochezia Obesity-BMI 34.9 Tobaccoism Hepatitis C GERD Plan: Regarding pulmonary edema, the patient has diuresed well -BUN is trending up. Will decrease Lasix to 40 by mouth twice a day and add potassium to prevent hypokalemia Regarding COPD and CO2 retention-improving. Change to oral steroids. Continue breathing treatments. BiPAP as needed. Regarding cardiomegaly and CHF, heart catheterization showing moderate disease Regarding Hypertensive emergency-blood pressure is improving. Coreg was increased last night. Continue amlodipine and lisinopril, and when necessary hydralazine IV Continue Ativan for withdrawal and anxiety. Will change Ativan to 4 times a day instead of every 6. The patient has not needed Haldol Continue nicotine patch for tobacco addiction. Increase activity as tolerated-consult PT and OT today. BMP tomorrow Continue thiamine and folate regarding alcoholism Possible transfer to the floor later today if patient is stable Sepsis Assessment - Evaluation Sepsis screening result: No Definite Risk Hospital Course Summary Disclaimer: The visit summary below is not to be considered part of the above Progress Note. Hospital Course: 11/02/16 Patient presents with clinical stage IV CHF; likely systolic failure and possibly alcoholic cardiomyopathy although dramatically elevated blood pressures on admission may indicate diastolic dysfunction. Treatment has been initiated acutely with Lasix, carvedilol, lisinopril, and aspirin. Echocardiogram ordered and Dr. Marie consulted. Serial troponins being obtained. Patient may well have underlying coronary disease given long tobacco history. Lipids to be obtained. Patient is at high risk for alcohol withdrawal and indicates he becomes symptomatic by the end of the workday. Serax initiated at 4 times a day dosing to minimize withdrawal symptoms and lorazepam available as needed. 11/03/16 16:17 Developed flash pulmonary edema with associated hypertension overnight. Blood pressure and oxygenation improved with BiPAP. Remains on BiPAP today except brief period soft for meals and interactive with caregivers/family. Diuresing well, blood pressure improving. Amlodipine added earlier today, lisinopril increased to 40 mg daily per cardiology, carvedilol at 6.25 twice a day. Nicardipine drip currently off-resume if needed for sustained systolics greater than 170. Hydralazine when necessary available if needed. Ejection fraction 40-45%, likely alcoholic cardiomyopathy. Discussed with Dr. Marie-anticipate cardiac catheterization in the future. Chest pain reported today does not sound high risk for cardiac event, troponins unremarkable and EKGs without acute changes. Patient remains at high risk for alcohol withdrawal symptomatology and DTs, continue scheduled Serax and lorazepam for breakthrough withdrawal symptoms. Nicotine patch for chronic tobacco abuse. 11/03/16 Cardiology (1) Chest pain: Trop neg x2 and ECG shows no acute ischemia. Chest pain relieved with Ntg. but his BP was 200's and he had CHF exacerbation which is likely the cause of his chest pain. Will need further cardiac workup as his heart failure warrants. with stress test in the future as an out pt. (2) Congestive heart failure: Echo to evaluate structure and function of heart and to determine type of CHF. Received Lasix 40 mg IV x2 yesterday for U/O 2100 ml last night. Cont Lasix IV daily. Agree with Coreg 6.25mg BID and lisinopril 20mg daily. Monitor I/O, Wts, lytes and renal function. Will need CHF instructions. (3) Hypertensive urgency: BP improved with Ntg, at first cont Coreg and lisinopril. (4) Tobacco abuse: Advised cessation. Nicotine patch on. (5) Alcohol abuse: Receiving Serax and vitamins. He has had recent bloody stool. (6) Hepatitis C 11/04/16 14:34 Plan left heart cath tomorrow. Increase Coreg 11/05/2016-Dr. Valdes Assessment: CHF (EF 40-45% -possible alcoholic cardiomyopathy) with flash pulmonary edema- clinical stage IV CHF Hypertensive emergency/urgency Chest pain/shortness of air-likely related to cardiomyopathy and acute heart failure Chronic alcohol use with withdrawal Acute on probable chronic hypoxic and hypercapnic respiratory failure Hepatitis C GERD Presumed COPD/consider COPD exacerbation diagnosis Chronic tobacco use Depression Diverticulosis Hematochezia Obesity-BMI 34.9 Plan: Regarding pulmonary edema, the patient is diuresing well and is now on oral Lasix. Chest x-ray is improving. Continue BiPAP as tolerated. Regarding COPD and CO2 retention, continue breathing treatments. Consider steroids. Regarding cardiomegaly and CHF, heart catheterization per Dr. Marie when patient will tolerate lying flat for procedure Regarding Hypertensive emergency, the patient is off of nicardipine drip. He continues on amlodipine, lisinopril and carvedilol with as needed hydralazine available. Continue Serax and when necessary lorazepam for alcohol withdrawal Psychiatry consultation regarding alcoholism, possible depression versus bipolar versus other, competency to make medical decisions. Discussed with the additions, social services counselor for psychiatry. Continue nicotine patch for tobacco addiction. Increase activity as tolerated. Repeat CBC and basic metabolic profile tomorrow. Continue thiamine and folate regarding alcoholism Greater than 45 minutes of critical care time spent seeing and evaluating the patient today. 11/06/2016-Dr. Valdes Assessment: CHF (EF 40-45% -possible alcoholic cardiomyopathy) with flash pulmonary edema- clinical stage IV CHF-EF appeared improved on heart catheter yesterday Hypertensive emergency/urgency-patient to somnolent to take oral meds this morning. We'll give IV hydralazine Chest pain/shortness of air-likely related to cardiomyopathy and acute heart failure-heart catheter showed moderate disease not requiring stent Chronic alcohol use with withdrawal-Dr. Benjamin's consult appreciated. Acute on probable chronic hypoxic and hypercapnic respiratory failure- Hepatitis C GERD COPD exacerbation diagnosis Chronic tobacco use Depression Diverticulosis Hematochezia Obesity-BMI 34.9 Tobaccoism Plan: Regarding pulmonary edema, the patient has diuresed well and is now on oral Lasix. Chest x-ray is improving. Continue BiPAP as tolerated. Regarding COPD and CO2 retention-we'll start IV steroids as recommended by Dr. Castillo. Continue breathing treatments. BiPAP as tolerated. Regarding cardiomegaly and CHF, heart catheterization yesterday showing moderate disease Regarding Hypertensive emergency, the patient is off of nicardipine drip but may need to restart if unable to take oral meds.. Oral meds (amlodipine, lisinopril and carvedilol) not given this morning due to somnolence. We'll continue With as needed hydralazine. Stop Serax and give Ativan for withdrawal and anxiety. When necessary Haldol for agitation. Continue nicotine patch for tobacco addiction. Increase activity as tolerated. Repeat CBC and basic metabolic profile tomorrow. Continue thiamine and folate regarding alcoholism Greater than 45 minutes of critical care time spent seeing and evaluating the patient today. 11/07/2016-Dr. Valdes Assessment: CHF (EF 40-45% -possible alcoholic cardiomyopathy) with flash pulmonary edema- clinical stage IV CHF-EF appeared improved on heart catheter Hypertensive emergency/urgency-blood pressure fairly well-controlled overnight but markedly elevated this morning. Give oral medications now and if not improving may need to give IV hydralazine and increase Coreg dose. Chest pain/shortness of air-likely related to cardiomyopathy and acute heart failure-heart catheter showed moderate disease not requiring stent Chronic alcohol use with withdrawal-encephalopathy has improved with Ativan Acute on probable chronic hypoxic and hypercapnic respiratory failure- COPD exacerbation diagnosis Depression Diverticulosis Hematochezia Obesity-BMI 34.9 Tobaccoism Hepatitis C GERD Plan: Regarding pulmonary edema, the patient has diuresed well Regarding COPD and CO2 retention-improving. Continue steroids. Continue breathing treatments. BiPAP as needed. Regarding cardiomegaly and CHF, heart catheterization showing moderate disease Regarding Hypertensive emergency, blood pressure was better controlled until this morning. Oral meds are amlodipine, lisinopril and carvedilol-May need to increase carvedilol dose if blood pressure not improved after this morning's meds. May need IV hydralazine Continue Ativan for withdrawal and anxiety. When necessary Haldol for agitation. Continue nicotine patch for tobacco addiction. Increase activity as tolerated-consult PT and OT today. CORTNEY Alex Repeat CBC, magnesium and renal profile tomorrow. Continue thiamine and folate regarding alcoholism Greater than 40 minutes of critical care time spent seeing and evaluating the patient today. Discussed with the patient's nurse, patient and family. Patient is still requiring intermittent IV Ativan for agitation. With uncontrolled high blood pressure and recent severe hypoxia requiring initiation of BiPAP overnight, I feel the patient still requires monitoring in CCU.
[2016-11-08] MEDS: LISINOPRIL 40 MG TABLET PO SCH (10:24)
[2016-11-08] MEDS: CARVEDILOL 25 MG TABLET PO SCH ×2 (10:24→17:19)
[2016-11-08] MEDS: ENOXAPARIN 40 MG/0.4 ML INJECTION SQ SCH (10:24)
[2016-11-08] MEDS: FOLIC ACID 1 MG TABLET PO SCH (10:24)
[2016-11-08] MEDS: ASPIRIN *EC* 81 MG TABLET PO SCH (10:25)
[2016-11-08] MEDS: FUROSEMIDE 80 MG TABLET PO SCH (10:25)
[2016-11-08] MEDS: NICOTINE 21 MG PATCH TD SCH (10:27)
[2016-11-08] MEDS: AMLODIPINE 5 MG TABLET PO SCH (10:27)
[2016-11-08] MEDS: NICOTINE PATCH REMOVAL TD SCH (10:28)
[2016-11-08] MEDS: PredniSONE 20 MG TABLET PO SCH (12:14)
[2016-11-08] MEDS: FUROSEMIDE 40 MG TABLET PO SCH (17:11)
[2016-11-09] MEDS: PANTOPRAZOLE 20 MG TABLET PO SCH ×2 (05:08→06:42)
[2016-11-09] MEDS: CARVEDILOL 25 MG TABLET PO SCH ×2 (08:22→17:12)
[2016-11-09] MEDS: FOLIC ACID 1 MG TABLET PO SCH (08:22)
[2016-11-09] MEDS: FUROSEMIDE 40 MG TABLET PO SCH ×2 (08:22→17:12)
[2016-11-09] MEDS: NICOTINE 21 MG PATCH TD SCH (08:22)
[2016-11-09] MEDS: ASPIRIN *EC* 81 MG TABLET PO SCH (08:23)
[2016-11-09] MEDS: ENOXAPARIN 40 MG/0.4 ML INJECTION SQ SCH (08:23)
[2016-11-09] MEDS: LISINOPRIL 40 MG TABLET PO SCH (08:23)
[2016-11-09] MEDS: AMLODIPINE 5 MG TABLET PO SCH (08:23)
[2016-11-09] MEDS: LORazepam 1 MG TABLET PO SCH ×4 (08:23→21:32)
--- NOTE | 2016-11-09 08:28 | Pulmonology Progress Note ---
Subjective Principal diagnosis: Chest pain, SOB Interval history: Doing well. eating. Calm. Still on O2 by [place]. Has no O2 or inhaled bronchodilator at home. 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 Exam Vital signs: Temperature 95.2 F L 11/09/16 07:26 Pulse Rate 85 11/09/16 07:26 Respiratory Rate 20 11/09/16 07:26 Blood Pressure 143/107 H 11/09/16 07:26 Pulse Oximetry 95 11/09/16 07:26 Oxygen Delivery Method Nasal Cannula Oxygen Flow Rate 4 Fraction of Inspired Oxygen 40 SaO2/FiO2 Ratio 225 - Constitutional no acute distress - Routine Neck Exam Present: supple, full ROM - Routine Respiratory Exam Present: accessory muscle use - Routine Cardiovascular Exam Present: RRR, S1, S2 - Routine Abdominal Exam Present: soft - Urinary Catheter Management Urethral Cath placed during this visit: yes, but has since been removed by the nurse Urethral indwelling: Yes Insertion date: 11/03/16 Insertion time: 03:30 Removal date: 11/06/16 Removal time: 03:00 Coude Cath placed during this visit: yes, but has since been removed by the nurse Urethral indwelling: Yes Insertion date: 11/06/16 Insertion time: 03:30 Removal date: 11/07/16 Removal time: 09:55 Progress Note-A&P (1) Acute and chronic respiratory failure with hypercapnia Status: Acute Assessment and plan: improved. still on O2 by nc. check exercise ox and MARTA prior to discharge. Likely needs home O2. Current Visit: Yes (2) Delirium tremens Status: Acute Assessment and plan: much improved. Haldol/benzo prn Current Visit: Yes (3) COPD exacerbation Status: Acute Assessment and plan: remains on prednisone. recommend weaning as tolerated. continue neb bronchodilators q4 wa. likely needs home O2. recommend smoking cessation Current Visit: Yes - Time Spent With Patient Total time spent is greater than 50% in coordination of care (as documented) at patient's floor/unit and/or counseling patient: less than 15 minutes Sepsis Assessment - Evaluation Sepsis screening result: No Definite Risk
[2016-11-09] MEDS: PredniSONE 20 MG TABLET PO SCH (08:36)
[2016-11-09] MEDS: NICOTINE PATCH REMOVAL TD SCH (08:36)
[2016-11-09] MEDS: ALBUTEROL/IPRATROPIUM 2.5mg-0.5mg/3ml NEB AEROSOL SCH ×4 (09:07→19:52)
--- NOTE | 2016-11-09 12:07 | Progress Note ---
<Miguelina Banerjee - Last Filed: 11/09/16 11:44> Subjective: Patient seen in his room sitting in his bed. He has no complaints. Reports his breathing is so much better than it has been. He has been eating well and nurses report he has wanted to get up and around more. Nurse reports he was off of O2 for a short time while moving about in his room and his O2 sat dropped to 85% on room air. Sats improved to low 90's when resuming 3L per NC. He is concerned about whether he will be able to return to his job. He retires Feb 2017 and reports if he needs to retire now due to medical concerns, he is willing. He report the work he does is "hard work" and he doesn't feel he could return to that kind of work at this point. Objective Vital signs: Temperature 95.2 F L 11/09/16 07:26 Pulse Rate 85 11/09/16 09:45 Respiratory Rate 20 11/09/16 09:45 Blood Pressure 137/75 11/09/16 09:45 Pulse Oximetry 91 11/09/16 09:45 Oxygen Delivery Method Nasal Cannula Oxygen Flow Rate 3 Height/Weight/BMI: Height 1.75 m Weight 106 kg Body Mass Index 35.9 - Constitutional Present: no acute distress, well nourished, well developed - Routine HEENT Exam Head: Present: normocephalic, atraumatic ENT: Present: mucous membranes moist, dentition normal - Routine Respiratory Exam Present: diminished air movement Comments: coarse breath sounds throughout - Routine Cardiovascular Exam Present: RRR, S1, S2. Absent: murmur - Routine Abdominal Exam Present: soft, normoactive bowel sounds, non distended. Absent: tenderness - Routine Extremities Exam Present: edema (trace b/l), normal capillary refill - Routine Skin Exam Present: dry, warm - Routine Neurological Exam Present: alert, oriented X3 - Routine Lymphatic Exam Lymphatic: Absent: adenopathy - Routine Psychiatric Exam Present: normal affect, normal thought process Results - Labs CBC & Chem 7: 11/08/16 04:28 11/09/16 04:43 - ABG Interpretation ABG results: 11/05/16 11/06/16 10:35 05:18 ABG pH 7.370 ABG pCO2 72 H* ABG pO2 84 ABG HCO3 42 H ABG Total CO2 43.8 H ABG O2 Saturation 96.0 ABG Base Excess 13.3 H VBG pH 7.310 VBG pCO2 92 H VBG pO2 25 L VBG HCO3 46 H VBG Total CO2 49.1 VBG O2 Saturation 39.0 VBG Base Excess 15.9 H Assessment and Plan (1) Chest pain Current visit: No Status: Acute (2) Hypertensive urgency Current visit: No Status: Acute (3) Congestive heart failure Problem details: Acute/chronic Systolic; global hypokinesia with ejection fraction 40-45% by echo Current visit: Yes Status: Acute (4) Pulmonary edema cardiac cause Current visit: Yes Status: Acute Assessment and Plan: Assessment: CHF (EF 40-45% -possible alcoholic cardiomyopathy) with previous flash pulmonary edema-clinical stage IV CHF-EF appeared improved on heart catheter Hypertensive emergency/urgency-blood pressure -improving Chest pain/shortness of air-likely related to cardiomyopathy and acute heart failure-heart catheter showed moderate disease not requiring stent Chronic alcohol use with withdrawal-encephalopathy has improved with Ativan Acute on probable chronic hypoxic and hypercapnic respiratory failure-requiring O2 COPD-currently on prednisone Depression Diverticulosis Hematochezia Obesity-BMI 34.9 Tobaccoism Hepatitis C GERD Plan: Continue Lasix & potassium - repeat BMP in am Dr. Castillo has seen patient. Recommends weaning steroids as able. At this point would continue current dose of oral steroids as he was recently changed from IV (will leave this to attending/pulm). Continue breathing treatments and O2. He will likely need home O2 and nebulizer treatments/inhalers. Continue Coreg, amlodipine and lisinopril, and when necessary hydralazine IV Continue Ativan for withdrawal and anxiety. Continue nicotine patch for tobacco addiction. Continue to increase activity as tolerated - working with PT/OT Continue thiamine and folate regarding alcoholism. I discussed IP alcohol rehab with patient after dismissal from hospital. He is not interested. States he has been through rehab nine times. He plans to "cut back significantly" on his drinking when he is back home. Sepsis Assessment - Evaluation Sepsis screening result: No Definite Risk Hospital Course Summary Disclaimer: The visit summary below is not to be considered part of the above Progress Note. Hospital Course: 11/02/16 Patient presents with clinical stage IV CHF; likely systolic failure and possibly alcoholic cardiomyopathy although dramatically elevated blood pressures on admission may indicate diastolic dysfunction. Treatment has been initiated acutely with Lasix, carvedilol, lisinopril, and aspirin. Echocardiogram ordered and Dr. Marie consulted. Serial troponins being obtained. Patient may well have underlying coronary disease given long tobacco history. Lipids to be obtained. Patient is at high risk for alcohol withdrawal and indicates he becomes symptomatic by the end of the workday. Serax initiated at 4 times a day dosing to minimize withdrawal symptoms and lorazepam available as needed. 11/03/16 16:17 Developed flash pulmonary edema with associated hypertension overnight. Blood pressure and oxygenation improved with BiPAP. Remains on BiPAP today except brief period soft for meals and interactive with caregivers/family. Diuresing well, blood pressure improving. Amlodipine added earlier today, lisinopril increased to 40 mg daily per cardiology, carvedilol at 6.25 twice a day. Nicardipine drip currently off-resume if needed for sustained systolics greater than 170. Hydralazine when necessary available if needed. Ejection fraction 40-45%, likely alcoholic cardiomyopathy. Discussed with Dr. Marie-anticipate cardiac catheterization in the future. Chest pain reported today does not sound high risk for cardiac event, troponins unremarkable and EKGs without acute changes. Patient remains at high risk for alcohol withdrawal symptomatology and DTs, continue scheduled Serax and lorazepam for breakthrough withdrawal symptoms. Nicotine patch for chronic tobacco abuse. 11/03/16 Cardiology (1) Chest pain: Trop neg x2 and ECG shows no acute ischemia. Chest pain relieved with Ntg. but his BP was 200's and he had CHF exacerbation which is likely the cause of his chest pain. Will need further cardiac workup as his heart failure warrants. with stress test in the future as an out pt. (2) Congestive heart failure: Echo to evaluate structure and function of heart and to determine type of CHF. Received Lasix 40 mg IV x2 yesterday for U/O 2100 ml last night. Cont Lasix IV daily. Agree with Coreg 6.25mg BID and lisinopril 20mg daily. Monitor I/O, Wts, lytes and renal function. Will need CHF instructions. (3) Hypertensive urgency: BP improved with Ntg, at first cont Coreg and lisinopril. (4) Tobacco abuse: Advised cessation. Nicotine patch on. (5) Alcohol abuse: Receiving Serax and vitamins. He has had recent bloody stool. (6) Hepatitis C 11/04/16 14:34 Plan left heart cath tomorrow. Increase Coreg 11/05/2016-Dr. Valdes Assessment: CHF (EF 40-45% -possible alcoholic cardiomyopathy) with flash pulmonary edema- clinical stage IV CHF Hypertensive emergency/urgency Chest pain/shortness of air-likely related to cardiomyopathy and acute heart failure Chronic alcohol use with withdrawal Acute on probable chronic hypoxic and hypercapnic respiratory failure Hepatitis C GERD Presumed COPD/consider COPD exacerbation diagnosis Chronic tobacco use Depression Diverticulosis Hematochezia Obesity-BMI 34.9 Plan: Regarding pulmonary edema, the patient is diuresing well and is now on oral Lasix. Chest x-ray is improving. Continue BiPAP as tolerated. Regarding COPD and CO2 retention, continue breathing treatments. Consider steroids. Regarding cardiomegaly and CHF, heart catheterization per Dr. Marie when patient will tolerate lying flat for procedure Regarding Hypertensive emergency, the patient is off of nicardipine drip. He continues on amlodipine, lisinopril and carvedilol with as needed hydralazine available. Continue Serax and when necessary lorazepam for alcohol withdrawal Psychiatry consultation regarding alcoholism, possible depression versus bipolar versus other, competency to make medical decisions. Discussed with the additions, health care social worker for psychiatry. Continue nicotine patch for tobacco addiction. Increase activity as tolerated. Repeat CBC and basic metabolic profile tomorrow. Continue thiamine and folate regarding alcoholism Greater than 45 minutes of critical care time spent seeing and evaluating the patient today. 11/06/2016-Dr. Valdes Assessment: CHF (EF 40-45% -possible alcoholic cardiomyopathy) with flash pulmonary edema- clinical stage IV CHF-EF appeared improved on heart catheter yesterday Hypertensive emergency/urgency-patient to somnolent to take oral meds this morning. We'll give IV hydralazine Chest pain/shortness of air-likely related to cardiomyopathy and acute heart failure-heart catheter showed moderate disease not requiring stent Chronic alcohol use with withdrawal-Dr. Weller's consult appreciated. Acute on probable chronic hypoxic and hypercapnic respiratory failure- Hepatitis C GERD COPD exacerbation diagnosis Chronic tobacco use Depression Diverticulosis Hematochezia Obesity-BMI 34.9 Tobaccoism Plan: Regarding pulmonary edema, the patient has diuresed well and is now on oral Lasix. Chest x-ray is improving. Continue BiPAP as tolerated. Regarding COPD and CO2 retention-we'll start IV steroids as recommended by Dr. Castillo. Continue breathing treatments. BiPAP as tolerated. Regarding cardiomegaly and CHF, heart catheterization yesterday showing moderate disease Regarding Hypertensive emergency, the patient is off of nicardipine drip but may need to restart if unable to take oral meds.. Oral meds (amlodipine, lisinopril and carvedilol) not given this morning due to somnolence. We'll continue With as needed hydralazine. Stop Serax and give Ativan for withdrawal and anxiety. When necessary Haldol for agitation. Continue nicotine patch for tobacco addiction. Increase activity as tolerated. Repeat CBC and basic metabolic profile tomorrow. Continue thiamine and folate regarding alcoholism Greater than 45 minutes of critical care time spent seeing and evaluating the patient today. 11/07/2016-Dr. Valdes Assessment: CHF (EF 40-45% -possible alcoholic cardiomyopathy) with flash pulmonary edema- clinical stage IV CHF-EF appeared improved on heart catheter Hypertensive emergency/urgency-blood pressure fairly well-controlled overnight but markedly elevated this morning. Give oral medications now and if not improving may need to give IV hydralazine and increase Coreg dose. Chest pain/shortness of air-likely related to cardiomyopathy and acute heart failure-heart catheter showed moderate disease not requiring stent Chronic alcohol use with withdrawal-encephalopathy has improved with Ativan Acute on probable chronic hypoxic and hypercapnic respiratory failure- COPD exacerbation diagnosis Depression Diverticulosis Hematochezia Obesity-BMI 34.9 Tobaccoism Hepatitis C GERD Plan: Regarding pulmonary edema, the patient has diuresed well Regarding COPD and CO2 retention-improving. Continue steroids. Continue breathing treatments. BiPAP as needed. Regarding cardiomegaly and CHF, heart catheterization showing moderate disease Regarding Hypertensive emergency, blood pressure was better controlled until this morning. Oral meds are amlodipine, lisinopril and carvedilol-May need to increase carvedilol dose if blood pressure not improved after this morning's meds. May need IV hydralazine Continue Ativan for withdrawal and anxiety. When necessary Haldol for agitation. Continue nicotine patch for tobacco addiction. Increase activity as tolerated-consult PT and OT today. CORTNEY Alex Repeat CBC, magnesium and renal profile tomorrow. Continue thiamine and folate regarding alcoholism Greater than 40 minutes of critical care time spent seeing and evaluating the patient today. Discussed with the patient's nurse, patient and family. Patient is still requiring intermittent IV Ativan for agitation. With uncontrolled high blood pressure and recent severe hypoxia requiring initiation of BiPAP overnight, I feel the patient still requires monitoring in CCU. 11/09/16 Continue Lasix & potassium - repeat BMP in am Continue oral steroids. Continue breathing treatments and O2. He will likely need home O2 and nebulizer. Continue Coreg, amlodipine and lisinopril, and when necessary hydralazine IV Continue Ativan for withdrawal and anxiety. Continue nicotine patch for tobacco addiction. Continue to increase activity as tolerated - working with PT/OT Continue thiamine and folate regarding alcoholism. I discussed IP alcohol rehab with patient after dismissal from hospital. He is not interested. States he has been through rehab nine times. He plans to "cut back significantly" on his drinking when he is back home <Savita Valdes - Last Filed: 11/09/16 18:19> Objective Vital signs: Temperature 97.3 F 11/09/16 15:27 Pulse Rate 84 11/09/16 16:00 Respiratory Rate 18 11/09/16 16:12 Blood Pressure 153/93 H 11/09/16 15:27 Pulse Oximetry 93 11/09/16 15:27 Oxygen Delivery Method Nasal Cannula Oxygen Flow Rate 2 Fraction of Inspired Oxygen 40 SaO2/FiO2 Ratio 225 Height/Weight/BMI: Height 1.75 m Weight 106 kg Body Mass Index 35.9 Results - Labs CBC & Chem 7: 11/08/16 04:28 11/09/16 04:43 - ABG Interpretation ABG results: 11/05/16 11/06/16 10:35 05:18 ABG pH 7.370 ABG pCO2 72 H* ABG pO2 84 ABG HCO3 42 H ABG Total CO2 43.8 H ABG O2 Saturation 96.0 ABG Base Excess 13.3 H VBG pH 7.310 VBG pCO2 92 H VBG pO2 25 L VBG HCO3 46 H VBG Total CO2 49.1 VBG O2 Saturation 39.0 VBG Base Excess 15.9 H Assessment and Plan (1) Chest pain Current visit: No Status: Resolved (2) Hypertensive urgency Current visit: No Status: Acute (3) Congestive heart failure Problem details: Acute/chronic Systolic; global hypokinesia with ejection fraction 40-45% by echo Current visit: Yes Status: Acute (4) Pulmonary edema cardiac cause Current visit: Yes Status: Acute Assessment and Plan: 11/09/2016-I reviewed this chart, the patient history, and the LEASE BROKER's/PA's documented findings as above. We discussed and formulated the assessment and plan as above with the additions below.-Dr. Valdes Patient states he is feeling a lot better today. He was able to walk outside with supplemental oxygen with the nurse and view the Eclipse with Eclipse glasses. He states he was not short of breath or lightheaded. He feels like his breathing has improved. He still feels anxious but thinks his anxiety is better. He denies any chest pain. On exam he is alert and oriented and in no acute distress. Chest reveals bilateral wheezing that overall improved. Cardiovascular reveals a regular rate and rhythm. Abdomen is soft and nontender. Extremities reveal no edema Will titrate prednisone down to 30 mg tomorrow. I've asked Dr. Weller to see the patient again regarding the patient's anxiety and alcohol withdrawal and give recommendations regarding his alprazolam both for here in the hospital and his recommendations at dismissal which may be in the next few days. I have again encouraged the patient to completely abstain from alcohol. I discussed with him that it will likely be very difficult for him to drink in moderation and that I'm worried resuming alcohol will have a very negative effect on all of his medical issues. We did review all of his medical issues again today and treatment plan at this time. Hopefully, we can continue to wean off of oxygen. If he is on room air during the day and saturations are okay, he would likely benefit from an overnight oximetry on room air. We also discussed that he will need to establish with a primary care physician close to his home. He would like to follow-up with Dr. Marie regarding cardiac issues. Discussed this morning with Dr. Castillo. Hospital Course Summary Disclaimer: The visit summary below is not to be considered part of the above Progress Note.
--- NOTE | 2016-11-09 15:39 | Cardiology Progress Note ---
Subjective Principal diagnosis: Chest pain, SOB <Latricia Cason - 11/09/16 15:39> Interval history: Solomon is sitting up in his bed, using the nebulizer. He denies chest pain or cardiac complaints, asks when he can be discharged. <Latricia Cason - 11/09/16 16:48> Exam Vital signs: Temperature 95.8 F L 11/10/16 07:44 Pulse Rate 88 11/10/16 12:00 Respiratory Rate 20 11/10/16 12:00 Blood Pressure 112/75 11/10/16 12:00 Pulse Oximetry 90 11/10/16 12:00 Oxygen Delivery Method Room Air Oxygen Flow Rate 1 Fraction of Inspired Oxygen 40 SaO2/FiO2 Ratio 225 <Manuel Marie - 11/10/16 13:44> Temperature 97.3 F 11/09/16 15:27 Pulse Rate 84 11/09/16 15:27 Respiratory Rate 20 11/09/16 15:27 Blood Pressure 153/93 H 11/09/16 15:27 Pulse Oximetry 93 11/09/16 15:27 Oxygen Delivery Method Nasal Cannula Oxygen Flow Rate 2 Fraction of Inspired Oxygen 40 SaO2/FiO2 Ratio 225 <Latricia Cason - 11/09/16 15:39> - Constitutional no acute distress, obese, cooperative <Latricia Cason 11/09/16 16:48> - Routine HEENT Exam Head: Present: normocephalic <Latricia Cason 11/09/16 16:48> ENT: Present: mucous membranes moist <Latricia Cason 11/09/16 16:48> - Routine Neck Exam Absent: JVD, carotid bruit <Latricia Cason 11/09/16 16:48> - Routine Chest/Breast/Axilla Exam Chest wall: Absent: tenderness <Latricia Cason 11/09/16 16:48> - Routine Respiratory Exam Present: decreased breath sounds, rhonchi. Absent: CTA bilaterally <Latricia Cason 11/09/16 15:39> - Routine Cardiovascular Exam Present: RRR. Absent: JVD <Latricia Cason 11/09/16 16:48> - Routine Abdominal Exam Present: soft, normoactive bowel sounds <Latricia Cason - 11/09/16 16:48> - Routine Extremities Exam Present: edema <Latricia Cason - 11/09/16 15:39> - Routine Skin Exam Present: intact, dry, warm <Latricia Cason - 11/09/16 16:48> - Routine Neurological Exam Present: alert <Latricia Cason - 11/09/16 15:39> - Routine Psychiatric Exam Present: normal affect, normal thought process <Latricia Cason - 11/09/16 16: 48> - Additional findings Additional findings: Laboratory Results - last 48 hr 11/08/16 11/08/16 11/09/16 04:28 04:28 04:43 WBC 6.8 D RBC 4.58 Hgb 15.0 Hct 45.4 MCV 99.1 MCH 32.8 MCHC 33.0 RDW Std Deviation 44.3 Plt Count 173 MPV 9.9 Immature Gran % (Auto) 0.1 Neut % (Auto) 75.9 H Lymph % (Auto) 12.0 L Cottle % (Auto) 12.0 H Eos % (Auto) 0.0 Baso % (Auto) 0.0 Neut # 5.1 Lymph # 0.8 L Cottle # 0.8 Eos # 0.0 Baso # 0.0 Abs Immat Gran (auto) 0.01 Turbidity < 20 < 20 Sodium 142 140 Potassium 3.7 3.7 Chloride 95 L 95 L Carbon Dioxide 37 H 38 H Anion Gap 10 7 BUN 31.0 H D 26.0 H Creatinine 0.8 0.8 GFR Calculation 101 101 BUN/Creatinine Ratio 39 H 33 H Glucose 148 H 98 Calculated Osmolality 283 H 274 Calcium 9.7 9.3 Phosphorus 3.7 Magnesium 2.1 Icterus Index < 2 < 2 Albumin 4.0 Specimen Hemolysis 28 H < 15 Acetaminophen (Tylenol) 1,000 mg PO Q6H PRN PRN Reason: Pain Acetaminophen/Hydrocodone Bitart ([place] 5/325) 1 - 2 tab PO Q5H PRN PRN Reason: Pain Last Admin: 11/07/16 21:35 Dose: 2 tab Al Hydroxide/Mg Hydroxide (Maalox Plus) 30 ml PO Q3H PRN PRN Reason: Indigestion Albuterol/Ipratropium (Duoneb) 3 ml AEROSOL QID YSABEL Last Admin: 11/09/16 13:02 Dose: 3 ml Albuterol/Ipratropium (Duoneb) 3 ml AEROSOL QID PRN Last Admin: 11/03/16 02:40 Dose: 3 ml Amlodipine Besylate (Norvasc) 5 mg PO DAILY [facility] Last Admin: 11/09/16 08:23 Dose: 5 mg Aspirin (Ecotrin) 81 mg PO DAILY [facility] Last Admin: 11/09/16 08:23 Dose: 81 mg Bisacodyl (Dulcolax) 5 - 10 mg PO DAILY PRN PRN Reason: Constipation Bisacodyl (Dulcolax) 10 mg RECTALLY DAILY PRN PRN Reason: Constipation Carvedilol (Coreg) 25 mg PO BIDWM [facility] Last Admin: 11/09/16 08:22 Dose: 25 mg Enoxaparin Sodium (Lovenox) 40 mg SQ DAILY [facility] Last Admin: 11/09/16 08:23 Dose: 40 mg Folic Acid (Folate) 1 mg PO DAILY [facility] Last Admin: 11/09/16 08:22 Dose: 1 mg Furosemide (Lasix) 40 mg PO [id number] [facility] Last Admin: 11/09/16 08:22 Dose: 40 mg Haloperidol Lactate (Haldol) 0.5 mg IVP Q6HR PRN PRN Reason: Agitation Hydralazine HCl (Apresoline) 10 mg IVP Q4H PRN Last Admin: 11/07/16 19:51 Dose: 10 mg Lisinopril (Prinivil) 40 mg PO DAILY [facility] Last Admin: 11/09/16 08:23 Dose: 40 mg Lorazepam (Ativan Inj) 1 - 2 mg IVP Q2H PRN PRN Reason: Alcohol withdrawl Last Admin: 11/06/16 05:45 Dose: 2 mg Lorazepam (Ativan Inj) 2 mg IM Q4H PRN Lorazepam (Ativan) 1 mg PO QID [facility] Last Admin: 11/09/16 13:39 Dose: 1 mg Magnesium Hydroxide (Mom) 30 ml PO DAILY PRN PRN Reason: Constipation Metoclopramide HCl (Reglan) 5 - 10 mg IVP Q6H PRN PRN Reason: Nausea &/or vomiting Morphine Sulfate (Morphine Sulfate Inj) 2 - 4 mg IVP Q5M PRN PRN Reason: Angina Nicotine (Nicoderm) 21 mg TD DAILY [facility] Last Admin: 11/09/16 08:22 Dose: 21 mg Nicotine (Nicotine Patch Removal) 1 removal TD DAILY [facility] Last Admin: 11/09/16 08:36 Dose: 1 removal Nitroglycerin (Nitrostat) 0.4 mg SL Q5MIN3 PRN PRN Reason: Chest pain Last Admin: 11/02/16 13:05 Dose: 0.4 mg Nitroglycerin (Nitrostat) 0.4 mg SL Q5M PRN PRN Reason: Angina Ondansetron HCl (Zofran) 4 mg IVP Q6H PRN PRN Reason: Nausea &/or vomiting Pantoprazole Sodium (Protonix) 20 mg PO ACB [facility] Last Admin: 11/09/16 06:42 Dose: Not Given Potassium Chloride (Micro-K) 20 meq PO WB [facility] Last Admin: 11/09/16 08:23 Dose: 20 meq Prednisone (Deltasone) 40 mg PO WB [facility] Last Admin: 11/09/16 08:36 Dose: 40 mg Sodium Chloride (Iv Flush) 10 - 80 ml IVF PRN PRN PRN Reason: Flushing Last Admin: 11/08/16 20:09 Dose: 10 ml Thiamine HCl (Vitamin B-1) 100 mg PO DAILY [facility] Last Admin: 11/09/16 08:22 Dose: 100 mg <Latricia Cason - 11/09/16 15:39> - Urinary Catheter Management Coude Cath placed during this visit: no <Manuel Marie - 11/10/16 13:44> yes, but has since been removed by the nurse <Latricia Cason - 11/10/16 11:39> Urethral indwelling: Yes <Latricia Cason - 11/09/16 15:39> Insertion date: 11/06/16 <Latricia Cason 11/09/16 15:39> Insertion time: 03:30 <Latricia Cason - 11/09/16 15:39> Removal date: 11/07/16 <Latricia Cason - 11/09/16 15:39> Removal time: 09:55 <Latricia Cason - 11/09/16 15:39> Urethral Cath placed during this visit: no <Manuel Marie - 11/10/16 13:44> yes, but has since been removed by the nurse <Latricia Cason - 11/10/16 11:39> Urethral indwelling: Yes <Latricia Cason - 11/09/16 15:39> Insertion date: 11/03/16 <Latricia Cason - 11/09/16 15:39> Insertion time: 03:30 <Latricia Cason - 11/09/16 15:39> Removal date: 11/06/16 <Latricia Cason - 11/09/16 15:39> Removal time: 03:00 <Latricia Cason - 11/09/16 15:39> Progress Note-A&P (1) Chest pain Status: Resolved Current Visit: No (2) Hypertensive urgency Status: Acute Current Visit: No (3) Congestive heart failure Problem details: Acute/chronic Systolic; global hypokinesia with ejection fraction 40-45% by echo Status: Acute Current Visit: Yes (4) Tobacco abuse Status: Chronic Current Visit: Yes (5) Alcohol abuse Status: Chronic Current Visit: Yes (6) Hepatitis C Status: Acute Current Visit: Yes (7) Cardiomyopathy Status: Resolved Current Visit: Yes (8) CAD (coronary artery disease) Status: Acute Current Visit: Yes <CynthiaLouieManuel - 11/10/16 13:44> (1) Chest pain Status: Resolved Assessment and plan: Diffuse modwerate CAD on left heart cath, plan is medical management Current Visit: No (2) Hypertensive urgency Status: Acute Assessment and plan: Continue Lisinopril at 40mg, Coreg 25mg and change Amlodipine 5mg to Nifedipine 60mg daily. Current Visit: No (3) Congestive heart failure Problem details: Acute/chronic Systolic; global hypokinesia with ejection fraction 40-45% by echo Status: Acute Current Visit: Yes (4) Tobacco abuse Status: Chronic Current Visit: Yes (5) Alcohol abuse Status: Chronic Current Visit: Yes (6) Hepatitis C Status: Acute Current Visit: Yes (7) Cardiomyopathy Status: Resolved Assessment and plan: EF on left heart cath 60% Current Visit: Yes (8) CAD (coronary artery disease) Status: Acute Assessment and plan: Diffuse moderate CAD, no high grade stenosis on cardiac cath. ASA 81mg daily, initiate lipitor 40mg daily. Current Visit: Yes <Latricia Cason - 11/10/16 11:37> - Time Spent With Patient Total time spent is greater than 50% in coordination of care (as documented) at patient's floor/unit and/or counseling patient: <Manuel Marie - 11/10/16 13:44> Total time spent is greater than 50% in coordination of care (as documented) at patient's floor/unit and/or counseling patient: <Latricia Cason - 11/09/16 15:39> less than 15 minutes <Latricia Cason - 11/09/16 16:48> - Attestation Attestation Narrative: Recommendation After examining the patient I agree with the above assessment. I am involved in the formulation of the patient's plan of care. <Louie Mariesein - 11/10/16 13:44> Sepsis Assessment - Evaluation Sepsis screening result: No Definite Risk <Latricia Cason 11/09/16 15:39> Hospital Course Summary Disclaimer: The visit summary below is not to be considered part of the above Progress Note. <Manuel Marie - 11/10/16 13:44> The visit summary below is not to be considered part of the above Progress Note. <Latricia Cason - 11/09/16 15:39> Hospital Course: 11/02/16 Patient presents with clinical stage IV CHF; likely systolic failure and possibly alcoholic cardiomyopathy although dramatically elevated blood pressures on admission may indicate diastolic dysfunction. Treatment has been initiated acutely with Lasix, carvedilol, lisinopril, and aspirin. Echocardiogram ordered and Dr. Marie consulted. Serial troponins being obtained. Patient may well have underlying coronary disease given long tobacco history. Lipids to be obtained. Patient is at high risk for alcohol withdrawal and indicates he becomes symptomatic by the end of the workday. Serax initiated at 4 times a day dosing to minimize withdrawal symptoms and lorazepam available as needed. 11/03/16 16:17 Developed flash pulmonary edema with associated hypertension overnight. Blood pressure and oxygenation improved with BiPAP. Remains on BiPAP today except brief period soft for meals and interactive with caregivers/family. Diuresing well, blood pressure improving. Amlodipine added earlier today, lisinopril increased to 40 mg daily per cardiology, carvedilol at 6.25 twice a day. Nicardipine drip currently off-resume if needed for sustained systolics greater than 170. Hydralazine when necessary available if needed. Ejection fraction 40-45%, likely alcoholic cardiomyopathy. Discussed with Dr. Marie-anticipate cardiac catheterization in the future. Chest pain reported today does not sound high risk for cardiac event, troponins unremarkable and EKGs without acute changes. Patient remains at high risk for alcohol withdrawal symptomatology and DTs, continue scheduled Serax and lorazepam for breakthrough withdrawal symptoms. Nicotine patch for chronic tobacco abuse. 11/03/16 Cardiology (1) Chest pain: Trop neg x2 and ECG shows no acute ischemia. Chest pain relieved with Ntg. but his BP was 200's and he had CHF exacerbation which is likely the cause of his chest pain. Will need further cardiac workup as his heart failure warrants. with stress test in the future as an out pt. (2) Congestive heart failure: Echo to evaluate structure and function of heart and to determine type of CHF. Received Lasix 40 mg IV x2 yesterday for U/O 2100 ml last night. Cont Lasix IV daily. Agree with Coreg 6.25mg BID and lisinopril 20mg daily. Monitor I/O, Wts, lytes and renal function. Will need CHF instructions. (3) Hypertensive urgency: BP improved with Ntg, at first cont Coreg and lisinopril. (4) Tobacco abuse: Advised cessation. Nicotine patch on. (5) Alcohol abuse: Receiving Serax and vitamins. He has had recent bloody stool. (6) Hepatitis C 11/04/16 14:34 Plan left heart cath tomorrow. Increase Coreg 11/05/2016-Dr. Valdes Assessment: CHF (EF 40-45% -possible alcoholic cardiomyopathy) with flash pulmonary edema- clinical stage IV CHF Hypertensive emergency/urgency Chest pain/shortness of air-likely related to cardiomyopathy and acute heart failure Chronic alcohol use with withdrawal Acute on probable chronic hypoxic and hypercapnic respiratory failure Hepatitis C GERD Presumed COPD/consider COPD exacerbation diagnosis Chronic tobacco use Depression Diverticulosis Hematochezia Obesity-BMI 34.9 Plan: Regarding pulmonary edema, the patient is diuresing well and is now on oral Lasix. Chest x-ray is improving. Continue BiPAP as tolerated. Regarding COPD and CO2 retention, continue breathing treatments. Consider steroids. Regarding cardiomegaly and CHF, heart catheterization per Dr. Marie when patient will tolerate lying flat for procedure Regarding Hypertensive emergency, the patient is off of nicardipine drip. He continues on amlodipine, lisinopril and carvedilol with as needed hydralazine available. Continue Serax and when necessary lorazepam for alcohol withdrawal Psychiatry consultation regarding alcoholism, possible depression versus bipolar versus other, competency to make medical decisions. Discussed with the additions, social services analyst for psychiatry. Continue nicotine patch for tobacco addiction. Increase activity as tolerated. Repeat CBC and basic metabolic profile tomorrow. Continue thiamine and folate regarding alcoholism Greater than 45 minutes of critical care time spent seeing and evaluating the patient today. 11/06/2016-Dr. Valdes Assessment: CHF (EF 40-45% -possible alcoholic cardiomyopathy) with flash pulmonary edema- clinical stage IV CHF-EF appeared improved on heart catheter yesterday Hypertensive emergency/urgency-patient to somnolent to take oral meds this morning. We'll give IV hydralazine Chest pain/shortness of air-likely related to cardiomyopathy and acute heart failure-heart catheter showed moderate disease not requiring stent Chronic alcohol use with withdrawal-Dr. Benjamin's consult appreciated. Acute on probable chronic hypoxic and hypercapnic respiratory failure- Hepatitis C GERD COPD exacerbation diagnosis Chronic tobacco use Depression Diverticulosis Hematochezia Obesity-BMI 34.9 Tobaccoism Plan: Regarding pulmonary edema, the patient has diuresed well and is now on oral Lasix. Chest x-ray is improving. Continue BiPAP as tolerated. Regarding COPD and CO2 retention-we'll start IV steroids as recommended by Dr. Castillo. Continue breathing treatments. BiPAP as tolerated. Regarding cardiomegaly and CHF, heart catheterization yesterday showing moderate disease Regarding Hypertensive emergency, the patient is off of nicardipine drip but may need to restart if unable to take oral meds.. Oral meds (amlodipine, lisinopril and carvedilol) not given this morning due to somnolence. We'll continue With as needed hydralazine. Stop Serax and give Ativan for withdrawal and anxiety. When necessary Haldol for agitation. Continue nicotine patch for tobacco addiction. Increase activity as tolerated. Repeat CBC and basic metabolic profile tomorrow. Continue thiamine and folate regarding alcoholism Greater than 45 minutes of critical care time spent seeing and evaluating the patient today. 11/07/2016-Dr. Valdes Assessment: CHF (EF 40-45% -possible alcoholic cardiomyopathy) with flash pulmonary edema- clinical stage IV CHF-EF appeared improved on heart catheter Hypertensive emergency/urgency-blood pressure fairly well-controlled overnight but markedly elevated this morning. Give oral medications now and if not improving may need to give IV hydralazine and increase Coreg dose. Chest pain/shortness of air-likely related to cardiomyopathy and acute heart failure-heart catheter showed moderate disease not requiring stent Chronic alcohol use with withdrawal-encephalopathy has improved with Ativan Acute on probable chronic hypoxic and hypercapnic respiratory failure- COPD exacerbation diagnosis Depression Diverticulosis Hematochezia Obesity-BMI 34.9 Tobaccoism Hepatitis C GERD Plan: Regarding pulmonary edema, the patient has diuresed well Regarding COPD and CO2 retention-improving. Continue steroids. Continue breathing treatments. BiPAP as needed. Regarding cardiomegaly and CHF, heart catheterization showing moderate disease Regarding Hypertensive emergency, blood pressure was better controlled until this morning. Oral meds are amlodipine, lisinopril and carvedilol-May need to increase carvedilol dose if blood pressure not improved after this morning's meds. May need IV hydralazine Continue Ativan for withdrawal and anxiety. When necessary Haldol for agitation. Continue nicotine patch for tobacco addiction. Increase activity as tolerated-consult PT and OT today. CORTNEY Alex Repeat CBC, magnesium and renal profile tomorrow. Continue thiamine and folate regarding alcoholism Greater than 40 minutes of critical care time spent seeing and evaluating the patient today. Discussed with the patient's nurse, patient and family. Patient is still requiring intermittent IV Ativan for agitation. With uncontrolled high blood pressure and recent severe hypoxia requiring initiation of BiPAP overnight, I feel the patient still requires monitoring in CCU. 11/09/16 Continue Lasix & potassium - repeat BMP in am Continue oral steroids. Continue breathing treatments and O2. He will likely need home O2 and nebulizer. Continue Coreg, amlodipine and lisinopril, and when necessary hydralazine IV Continue Ativan for withdrawal and anxiety. Continue nicotine patch for tobacco addiction. Continue to increase activity as tolerated - working with PT/OT Continue thiamine and folate regarding alcoholism. I discussed IP alcohol rehab with patient after dismissal from hospital. He is not interested. States he has been through rehab nine times. He plans to "cut back significantly" on his drinking when he is back home <Latricia Cason - 11/09/16 15:39>
[2016-11-10] MEDS: PANTOPRAZOLE 20 MG TABLET PO SCH (06:56)
[2016-11-10 07:46] VITALS: TEMP 95.8
[2016-11-10] MEDS ORDERED: PredniSONE 10 MG TABLET PO SCH (08:00)
[2016-11-10] MEDS: NICOTINE 21 MG PATCH TD SCH (08:06)
[2016-11-10] MEDS: NICOTINE PATCH REMOVAL TD SCH (08:07)
[2016-11-10] MEDS: LORazepam 1 MG TABLET PO SCH (08:07)
[2016-11-10] MEDS: ASPIRIN *EC* 81 MG TABLET PO SCH (08:08)
[2016-11-10] MEDS: CARVEDILOL 25 MG TABLET PO SCH (08:08)
[2016-11-10] MEDS: FOLIC ACID 1 MG TABLET PO SCH (08:08)
[2016-11-10] MEDS: LISINOPRIL 40 MG TABLET PO SCH (08:08)
[2016-11-10] MEDS: FUROSEMIDE 40 MG TABLET PO SCH (08:08)
[2016-11-10] MEDS: ENOXAPARIN 40 MG/0.4 ML INJECTION SQ SCH (08:09)
[2016-11-10] MEDS: ALBUTEROL/IPRATROPIUM 2.5mg-0.5mg/3ml NEB AEROSOL SCH ×2 (08:37→11:18)
[2016-11-10 12:09] VITALS: BP 112/75; PULSE 88; RESP 20; O2SAT 90
[2016-11-10] MEDS ORDERED: HydrOXYzine 50 MG TABLET PO PRN (12:39)
--- NOTE | 2016-11-10 14:23 | Discharge Instructions ---
Discharge Plan - Med Rec/Dispo [place] Instructions: Heart Failure (GEN), Hypoxia (GEN) Additional Instructions: Obtain valuables from lock up at front office supervisor Follow-up with Dr. Moran in [facility] in the next 1 week, she can refer you to a union organizer. Please follow-up with a union organizer in the next 2-3 weeks. Prescriptions: New Aspirin *EC* [Ecotrin] 81 mg PO DAILY tablet Carvedilol [Coreg] 25 mg PO BIDWM #60 tablet Furosemide [Lasix] 40 mg PO [id number] #60 tablet Lisinopril [Prinivil] 40 mg PO DAILY #30 tablet Nicotine Patch [Nicoderm] 21 mg TD DAILY #30 patch Nicotine Patch Removal 1 removal TD DAILY patch NIFEdipine XL [Procardia Xl] 60 mg PO DAILY #30 tablet Potassium Chloride [Micro-K] 20 meq PO BIDWM #60 capsule Albuterol/Ipratropium [Duoneb] 3 ml AEROSOL QID neb Albuterol/Ipratropium [Duoneb] 3 ml AEROSOL QID PRN #1 box PRN Reason: Dyspnea HydrOXYzine [Atarax] 50 mg PO TID PRN #20 tablet PRN Reason: Anxiety LORazepam [Ativan] 0.5 mg PO TID #24 tablet Nitroglycerin [Nitrostat] 0.4 mg SL Q5M PRN #20 tablet PRN Reason: Angina PredniSONE [Deltasone] 30 mg PO WB #15 tablet Continue Acetaminophen [Acetaminophen Extra Strength] 1,000 mg PO Q6H PRN PRN Reason: Pain Discharge Instructions/Outpatient Orders: Final Provider Discharge Instructions Location: Determined By Patient - Disposition 01 Discharged Home, Self-Care
--- NOTE | 2016-11-10 14:48 | Discharge Summary ---
Discharge Information Date of admission: 11/02/16 14:03 Attending Physician: Savita Valdes MD Consults: 11/02/16 16:07 Physician Consult [CONS] Routine Consulting Provider: Manuel Marie Reason For Exam: CHF, htn, cardiomegaly Ordering Provider has Notified Photography Manager: No 11/04/16 20:46 Physician Consult [CONS] Routine Consulting Provider: Antonio Weller Reason For Exam: depression/alcohol abuse Ordering Provider has Notified Photography Manager: No Comment: I will notify in a.m. 11/05/16 08:26 Physician Consult [CONS] Routine Consulting Provider: Antonio Weller Reason For Exam: alcoholism, withdrawal, possible depression/BAD Ordering Provider has Notified Photography Manager: Yes Comment: generations unit notified 11/06/16 08:05 Physician Consult [CONS] Routine Consulting Provider: Dylan Castillo Reason For Exam: acute on chronic resp failure Ordering Provider has Notified Photography Manager: Yes - Discharge Diagnosis Discharge Diagnosis: CHF with EF of 40-45% on echo and improved to 60% on heart catheter Hypertensive emergency Chest pain Alcoholism Severe alcohol withdrawal without seizures COPD with COPD exacerbation Acute on chronic hypoxic and hypercapnic respiratory failure Obesity Tobaccoism History of hepatitis C GERD - Procedures Procedures: Heart catheterization 11/05/2016 The patient is a 51-year-old gentleman who was admitted with chest pain, shortness of breath, congestive heart failure and abnormal LV function with cardiomyopathy and was referred for further evaluation by cardiac catheterization and possible intervention. Informed consent was obtained after explaining the procedure and the potential risks to the patient who agreed to proceed with the procedure. PROCEDURE 1. Left heart catheterization. 2. Coronary angiography. 3. Left ventriculography. TECHNIQUE He was prepped and draped in the usual sterile techniques. 1% lidocaine was used for local anesthesia. Using modified Seldinger technique, arterial access was obtained into the right radial artery with placement of a 6-Turkmen arterial sheath. LEFT VENTRICULOGRAPHY Left ventriculography in single-plane DE LEON shallow projection showed normal LV systolic function with ejection fraction of about 60% with no mitral regurgitation or gradient across the aortic valve. LVEDP was elevated at about 25. CORONARY ANGIOGRAPHY Left main was free of significant lesions. Left anterior descending artery was a gszsok-yj-tvysh caliber vessel which had about 40% stenosis. Diagonal also had about 40% stenosis. It was a flkrsn-ac-sgmvx caliber vessel. Left circumflex artery was nondominant and a qfzfnt-gn-uixef caliber vessel with about 50% stenosis distally. Right coronary artery was quite large and dominant with diffuse irregularities with no stenosis greater than 30%. The patient tolerated the procedure well with no complications. IMPRESSION 1. Normal LV systolic function with ejection fraction of about 60%. 2. Moderate coronary artery disease as described above. 3. Elevated LV end-diastolic pressure. PLAN Medical management. - Laboratory Labs: 11/08/16 04:28 11/10/16 04:30 Laboratory Results - last 72 hr 11/08/16 11/08/16 11/09/16 04:28 04:28 04:43 WBC 6.8 D RBC 4.58 Hgb 15.0 Hct 45.4 MCV 99.1 MCH 32.8 MCHC 33.0 RDW Std Deviation 44.3 Plt Count 173 MPV 9.9 Immature Gran % (Auto) 0.1 Neut % (Auto) 75.9 H Lymph % (Auto) 12.0 L Graves % (Auto) 12.0 H Eos % (Auto) 0.0 Baso % (Auto) 0.0 Neut # 5.1 Lymph # 0.8 L Graves # 0.8 Eos # 0.0 Baso # 0.0 Abs Immat Gran (auto) 0.01 Turbidity < 20 < 20 Sodium 142 140 Potassium 3.7 3.7 Chloride 95 L 95 L Carbon Dioxide 37 H 38 H Anion Gap 10 7 BUN 31.0 H D 26.0 H Creatinine 0.8 0.8 GFR Calculation 101 101 BUN/Creatinine Ratio 39 H 33 H Glucose 148 H 98 Calculated Osmolality 283 H 274 Calcium 9.7 9.3 Phosphorus 3.7 Magnesium 2.1 Icterus Index < 2 < 2 Albumin 4.0 Specimen Hemolysis 28 H < 15 11/10/16 04:30 WBC RBC Hgb Hct MCV MCH MCHC RDW Std Deviation Plt Count MPV Immature Gran % (Auto) Neut % (Auto) Lymph % (Auto) Graves % (Auto) Eos % (Auto) Baso % (Auto) Neut # Lymph # Graves # Eos # Baso # Abs Immat Gran (auto) Turbidity < 20 Sodium 143 Potassium 3.5 L Chloride 97 L Carbon Dioxide 39 H Anion Gap 7 BUN 22.0 H Creatinine 0.8 GFR Calculation 101 BUN/Creatinine Ratio 28 H Glucose 91 Calculated Osmolality 278 Calcium 9.3 Phosphorus Magnesium Icterus Index < 2 Albumin Specimen Hemolysis < 15 INR 1.31 ABG on 6 L pH 7.37, PCO2 72, PO2 84 on 11/05/2016 Troponins were within normal limits BNP 2390 on admission TSH normal at 1.41 Triglycerides 52, cholesterol 134, LDL 84, VLDL 10, HDL 39, cholesterol/HDL ratio 3.4 Liver enzymes were essentially normal - Radiology Radiology: 11/02/2016 Chest x-ray on admission showed significant enlargement of the cardiac silhouette could be due to cardiomegaly or pericardial effusion. No acute pneumonia or overt congestive failure Chest x-ray 11/03/2016 showed increasing prominence of the pulmonary vascular markings consistent with mild pulmonary edema Chest x-ray 11/05/2016 showed improved pulmonary edema Chest x-ray 11/06/2016 showed stable appearance of the chest Echocardiogram 11/02/2016 this is a two-dimensional echo with spectral Doppler, color-flow and M-mode. It was obtained in a patient with cardiomyopathy. Left atrium is dilated. Left ventricle end-diastolic dimension is at the upper limits of normal. Left ventricle wall thickness is increased. LV systolic function is reduced with ejection fraction of about 40%-45%. Right atrium is normal. Right ventricle is normal. Aortic root dimension is normal. Mitral valve is morphologically normal with mild mitral regurgitation. Aortic valve was not visualized well. However, Doppler studies indicate no stenosis or insufficiency. Tricuspid valve shows mild tricuspid regurgitation with estimated pulmonary artery systolic pressure of 33. Pulmonary valve shows no pulmonary insufficiency. There is no pericardial effusion. IMPRESSION 1. Technically difficult study. 2. Left atrial dilation. 3. Left ventricular hypertrophy. 4. Global hypokinesia with ejection fraction of about 40%-45%. 5. Mild mitral regurgitation. 6. Mild tricuspid regurgitation with estimated pulmonary artery systolic pressure of 33. History of Present Illness HPI: Patient is a 51-year-old white male who has no PCP. He presented to the emergency room with complaints of severe shortness of air and chest pain (8) . Patient reports that he was diagnosed with congestive heart failure 15 days ago while hospitalized in [place], but he left the hospital AMA after staying approximately 24 hours to get back to [place] where his sister lives. Patient states he's had these symptoms since that hospitalization. When he presented to the ED he was quite dyspneic and speaking in 3 word sentences. His room air sats were 86-88%. After he was placed on 3 L of oxygen, his saturations improved to greater than 93% and he reported significant improvement in his shortness of breath. He was given 2 sublingual nitroglycerin and topical nitrogen was applied. Following the oxygen and nitroglycerin, his chest pain resolved. He also received aspirin, a dose of Lasix 40 IV, and lisinopril 20 mg by mouth. He had a DuoNeb treatment in the emergency department for his wheezes/ crackles. He is not aware of a COPD diagnosis, however he does not have routine healthcare. He is a 3 pack per day smoker. Nicotine patch was applied in the emergency room. His initial troponin and d-dimer were negative. His BNP was 2390. CBC and CMP were essentially negative. Alcohol level was less than 10, although patient states he has had 4 drinks today. Chest x-ray showed significant cardiomegaly. EKG showed sinus tach with no acute ST changes. Following initial workup in the ED, patient was admitted to the hospitalist service (Dr. Parker attending) for further workup, treatment and observation. Patient was brought to the floor on 3 L of oxygen per nasal cannula in stable condition. He was seen in his hospital room. His sister is with him. He has no current complaints. States "I just need to get back to work." He is agreeable to seeing Dr. Marie in consultation. Objective Vital signs: Temperature 95.8 F L 11/10/16 07:44 Pulse Rate 88 11/10/16 12:00 Respiratory Rate 20 11/10/16 12:00 Blood Pressure 112/75 11/10/16 12:00 Pulse Oximetry 90 11/10/16 12:00 Oxygen Delivery Method Room Air Oxygen Flow Rate 1 Fraction of Inspired Oxygen 40 SaO2/FiO2 Ratio 225 Height/Weight/BMI: Height 1.75 m Weight 105 kg Body Mass Index 35.9 Hospital Course This is a general summary of the patient's hospital course. For more details refer to the complete medical record. Hospital course: 11/02/16 Patient presents with clinical stage IV CHF; likely systolic failure and possibly alcoholic cardiomyopathy although dramatically elevated blood pressures on admission may indicate diastolic dysfunction. Treatment has been initiated acutely with Lasix, carvedilol, lisinopril, and aspirin. Echocardiogram ordered and Dr. Marie consulted. Serial troponins being obtained. Patient may well have underlying coronary disease given long tobacco history. Lipids to be obtained. Patient is at high risk for alcohol withdrawal and indicates he becomes symptomatic by the end of the workday. Serax initiated at 4 times a day dosing to minimize withdrawal symptoms and lorazepam available as needed. 11/03/16 16:17 Developed flash pulmonary edema with associated hypertension overnight. Blood pressure and oxygenation improved with BiPAP. Remains on BiPAP today except brief period soft for meals and interactive with caregivers/family. Diuresing well, blood pressure improving. Amlodipine added earlier today, lisinopril increased to 40 mg daily per cardiology, carvedilol at 6.25 twice a day. Nicardipine drip currently off-resume if needed for sustained systolics greater than 170. Hydralazine when necessary available if needed. Ejection fraction 40-45%, likely alcoholic cardiomyopathy. Discussed with Dr. Marie-anticipate cardiac catheterization in the future. Chest pain reported today does not sound high risk for cardiac event, troponins unremarkable and EKGs without acute changes. Patient remains at high risk for alcohol withdrawal symptomatology and DTs, continue scheduled Serax and lorazepam for breakthrough withdrawal symptoms. Nicotine patch for chronic tobacco abuse. 11/03/16 Cardiology (1) Chest pain: Trop neg x2 and ECG shows no acute ischemia. Chest pain relieved with Ntg. but his BP was 200's and he had CHF exacerbation which is likely the cause of his chest pain. Will need further cardiac workup as his heart failure warrants. with stress test in the future as an out pt. (2) Congestive heart failure: Echo to evaluate structure and function of heart and to determine type of CHF. Received Lasix 40 mg IV x2 yesterday for U/O 2100 ml last night. Cont Lasix IV daily. Agree with Coreg 6.25mg BID and lisinopril 20mg daily. Monitor I/O, Wts, lytes and renal function. Will need CHF instructions. (3) Hypertensive urgency: BP improved with Ntg, at first cont Coreg and lisinopril. (4) Tobacco abuse: Advised cessation. Nicotine patch on. (5) Alcohol abuse: Receiving Serax and vitamins. He has had recent bloody stool. (6) Hepatitis C 11/04/16 14:34 Plan left heart cath tomorrow. Increase Coreg 11/05/2016-Dr. Valdes Assessment: CHF (EF 40-45% -possible alcoholic cardiomyopathy) with flash pulmonary edema- clinical stage IV CHF Hypertensive emergency/urgency Chest pain/shortness of air-likely related to cardiomyopathy and acute heart failure Chronic alcohol use with withdrawal Acute on probable chronic hypoxic and hypercapnic respiratory failure Hepatitis C GERD Presumed COPD/consider COPD exacerbation diagnosis Chronic tobacco use Depression Diverticulosis Hematochezia Obesity-BMI 34.9 Plan: Regarding pulmonary edema, the patient is diuresing well and is now on oral Lasix. Chest x-ray is improving. Continue BiPAP as tolerated. Regarding COPD and CO2 retention, continue breathing treatments. Consider steroids. Regarding cardiomegaly and CHF, heart catheterization per Dr. Marie when patient will tolerate lying flat for procedure Regarding Hypertensive emergency, the patient is off of nicardipine drip. He continues on amlodipine, lisinopril and carvedilol with as needed hydralazine available. Continue Serax and when necessary lorazepam for alcohol withdrawal Psychiatry consultation regarding alcoholism, possible depression versus bipolar versus other, competency to make medical decisions. Discussed with the additions, social organization professor for psychiatry. Continue nicotine patch for tobacco addiction. Increase activity as tolerated. Repeat CBC and basic metabolic profile tomorrow. Continue thiamine and folate regarding alcoholism Greater than 45 minutes of critical care time spent seeing and evaluating the patient today. 11/06/2016-Dr. Valdes Assessment: CHF (EF 40-45% -possible alcoholic cardiomyopathy) with flash pulmonary edema- clinical stage IV CHF-EF appeared improved on heart catheter yesterday Hypertensive emergency/urgency-patient to somnolent to take oral meds this morning. We'll give IV hydralazine Chest pain/shortness of air-likely related to cardiomyopathy and acute heart failure-heart catheter showed moderate disease not requiring stent Chronic alcohol use with withdrawal-Dr. Weller's consult appreciated. Acute on probable chronic hypoxic and hypercapnic respiratory failure- Hepatitis C GERD COPD exacerbation diagnosis Chronic tobacco use Depression Diverticulosis Hematochezia Obesity-BMI 34.9 Tobaccoism Plan: Regarding pulmonary edema, the patient has diuresed well and is now on oral Lasix. Chest x-ray is improving. Continue BiPAP as tolerated. Regarding COPD and CO2 retention-we'll start IV steroids as recommended by Dr. Castillo. Continue breathing treatments. BiPAP as tolerated. Regarding cardiomegaly and CHF, heart catheterization yesterday showing moderate disease Regarding Hypertensive emergency, the patient is off of nicardipine drip but may need to restart if unable to take oral meds.. Oral meds (amlodipine, lisinopril and carvedilol) not given this morning due to somnolence. We'll continue With as needed hydralazine. Stop Serax and give Ativan for withdrawal and anxiety. When necessary Haldol for agitation. Continue nicotine patch for tobacco addiction. Increase activity as tolerated. Repeat CBC and basic metabolic profile tomorrow. Continue thiamine and folate regarding alcoholism Greater than 45 minutes of critical care time spent seeing and evaluating the patient today. 11/07/2016-Dr. Valdes Assessment: CHF (EF 40-45% -possible alcoholic cardiomyopathy) with flash pulmonary edema- clinical stage IV CHF-EF appeared improved on heart catheter Hypertensive emergency/urgency-blood pressure fairly well-controlled overnight but markedly elevated this morning. Give oral medications now and if not improving may need to give IV hydralazine and increase Coreg dose. Chest pain/shortness of air-likely related to cardiomyopathy and acute heart failure-heart catheter showed moderate disease not requiring stent Chronic alcohol use with withdrawal-encephalopathy has improved with Ativan Acute on probable chronic hypoxic and hypercapnic respiratory failure- COPD exacerbation diagnosis Depression Diverticulosis Hematochezia Obesity-BMI 34.9 Tobaccoism Hepatitis C GERD Plan: Regarding pulmonary edema, the patient has diuresed well Regarding COPD and CO2 retention-improving. Continue steroids. Continue breathing treatments. BiPAP as needed. Regarding cardiomegaly and CHF, heart catheterization showing moderate disease Regarding Hypertensive emergency, blood pressure was better controlled until this morning. Oral meds are amlodipine, lisinopril and carvedilol-May need to increase carvedilol dose if blood pressure not improved after this morning's meds. May need IV hydralazine Continue Ativan for withdrawal and anxiety. When necessary Haldol for agitation. Continue nicotine patch for tobacco addiction. Increase activity as tolerated-consult PT and OT today. CORTNEY Alex Repeat CBC, magnesium and renal profile tomorrow. Continue thiamine and folate regarding alcoholism Greater than 40 minutes of critical care time spent seeing and evaluating the patient today. Discussed with the patient's nurse, patient and family. Patient is still requiring intermittent IV Ativan for agitation. With uncontrolled high blood pressure and recent severe hypoxia requiring initiation of BiPAP overnight, I feel the patient still requires monitoring in CCU. 11/09/16 Continue Lasix & potassium - repeat BMP in am Continue oral steroids. Continue breathing treatments and O2. He will likely need home O2 and nebulizer. Continue Coreg, amlodipine and lisinopril, and when necessary hydralazine IV Continue Ativan for withdrawal and anxiety. Continue nicotine patch for tobacco addiction. Continue to increase activity as tolerated - working with PT/OT Continue thiamine and folate regarding alcoholism. I discussed IP alcohol rehab with patient after dismissal from hospital. He is not interested. States he has been through rehab nine times. He plans to "cut back significantly" on his drinking when he is back home 11/10/2016 The patient is doing quite well today. He is having no signs of alcohol withdrawal. He is eating and drinking well. He has no tremulousness or confusion. He is alert and oriented 3. Chest is clear to auscultation. Cardiovascular reveals a regular rate and rhythm. Abdomen is soft and nontender. Extremities reveal no edema. Room air saturation at rest is around 90%. O2 sat does drop to 84% on room air with activity and requires 3 L of oxygen to maintain saturations above 90%. O2 sat with sleep on room air is 85% and requires 2 L of oxygen with sleep to keep saturation 90% or above. Today, blood pressure is well controlled on current antihypertensives. He appears euvolemic. He appears stable for dismissal to home and is strongly wanting to go home. He is concerned about the cost of hospitalization. We have arranged for home O2 and he will need 2 L of oxygen with sleep and 3 L of oxygen with activity. He's been advised to quit smoking. If he decides to smoke he must not wear the nicotine patch and must not wear oxygen while smoking. He was strongly urged to quit drinking alcohol completely. He was offered help with alcohol cessation but stated that he has been in treatment 9 times and knows all he needs to know about this. I did talk with Dr. Weller today regarding his current use of Ativan. He recommended decreasing to 0.5 mg 3 times a day with a taper over the next 2 weeks. He recommended hydroxyzine as needed for anxiety. The patient was notified that he should drive if he is taking Ativan or hydroxyzine. The patient plans to follow-up in one week with Dr. Moran in [facility]. I did attempt to call her office but did not get an answer. We will try to obtain her fax number so that we can fax information. The patient stated he wants Dr. Moran to schedule an appointment for him with a local heavy equipment plumbing supervisor. On 11/10/2016 was felt the patient was stable for dismissal to home. Home oxygen is being arranged. His sister will be driving him home to [place]. Greater than 35 minutes of time was spent On dismissal day. Time spent with patient: greater than 35 minutes Discharge Plan - Med Rec/Dispo Truven Instructions: [facility] Congestive Heart Failure, Heart Failure (GEN), Hypoxia (GEN) Additional Instructions: Obtain valuables from lock up at [facility] Follow-up with Dr. Moran in [facility] in the next 1 week, she can refer you to a heavy equipment plumbing supervisor. Please follow-up with a heavy equipment plumbing supervisor in the next 2-3 weeks. Prescriptions: New Aspirin *EC* [Ecotrin] 81 mg PO DAILY tablet Carvedilol [Coreg] 25 mg PO BIDWM #60 tablet Furosemide [Lasix] 40 mg PO [id number] #60 tablet Lisinopril [Prinivil] 40 mg PO DAILY #30 tablet Nicotine Patch [Nicoderm] 21 mg TD DAILY #30 patch Nicotine Patch Removal 1 removal TD DAILY patch NIFEdipine XL [Procardia Xl] 60 mg PO DAILY #30 tablet Potassium Chloride [Micro-K] 20 meq PO BIDWM #60 capsule Albuterol/Ipratropium [Duoneb] 3 ml AEROSOL QID neb Albuterol/Ipratropium [Duoneb] 3 ml AEROSOL QID PRN #1 box PRN Reason: Dyspnea HydrOXYzine [Atarax] 50 mg PO TID PRN #20 tablet PRN Reason: Anxiety LORazepam [Ativan] 0.5 mg PO TID #24 tablet Nitroglycerin [Nitrostat] 0.4 mg SL Q5M PRN #20 tablet PRN Reason: Angina PredniSONE [Deltasone] 30 mg PO WB #15 tablet Continue Acetaminophen [Acetaminophen Extra Strength] 1,000 mg PO Q6H PRN PRN Reason: Pain Discharge Instructions/Outpatient Orders: Final Provider Discharge Instructions Location: Determined By Patient
[2016-11-10] MEDS ORDERED: LORazepam 0.5 MG TABLET PO SCH (15:00)
== END 2016-11-10 15:15 | disposition home or self-care (01) | DRG 286 ==
LOC: ED 12:41 → MED 14:03 → CCU 11-03 03:33 → MED 11-08 18:25
PROVIDERS: ADMIT Internal Medicine; ATTEND Internal Medicine